=== PATIENT | male | born 1935 | race Two or more races ===

== ENCOUNTER 2017-03-20 13:53 | Inpatient (IN) | payer MEDICARE, MEDICAID ==
[2017-03-20 19:09] VITALS: BP 153/74
[2017-03-20] MEDS ORDERED: Pneumococcal Vaccine 0.5 mL Vial IM ONE (20:01)
[2017-03-20 20:36] LABS: % BASOPHILS 0.5 % (0.0-2.0); % LYMPHOCYTES 21.9 % (20.0-50.0); % NEUTROPHILS 63.6 % (40.0-80.0); HEMOGLOBIN 10.5 gm/dL (12-16); MEAN CELL VOLUME 95.7 fl (80-99); MEAN CORPUSCULAR HEMOGLOBIN 32.3 pg (27.0-31.0); MEAN CORPUSCULAR HGB CONC 33.8 pg (28.0-36.0); MEAN PLATELET VOLUME 6.3 fl; NEUTROPHILE ABSOLUTE 5.5 Th/cmm (1.8-8.0); PLATELET COUNT 241 Th/cmm (150-400); RED BLOOD COUNT 3.24 Mil/cmm (3.80-5.80); RED CELL DISTRIBUTION WIDTH 16.7 % (11.5-20.0); WHITE BLOOD COUNT 8.6 Th/cmm (4.8-10.8)
[2017-03-20] MEDS ORDERED: Diatrizoate Meglumine/Diatri 30 mL Sol ONE (21:28)
[2017-03-20 21:30] LABS: INR 1.06 (0.5-1.4)
[2017-03-20] MEDS: D5-0.45NS 1,000 ML IV SCH (23:30)
[2017-03-21 06:04] LABS: INR 1.05 (0.5-1.4); PROTHROMBIN TIME (TEST) 10.9 SECONDS (9.5-11.5)
[2017-03-21 06:12] LABS: ALKALINE PHOSPHATASE 83 U/L (34-104); ANION GAP 9.2 (7.0-16.0); BILIRUBIN,TOTAL 0.6 mg/dL (0.3-1.0); BUN - UREA NITROGEN 42 mg/dL (7-25); BUN/CREATININE RATIO 16.2; CALCIUM SERUM 9.4 mg/dL (8.6-10.3); CARBON DIOXIDE 26.4 mEq/L (21.0-31.0); CHLORIDE 93 mEq/L (98-107); CREATININE - SERUM 2.6 mg/dL (0.7-1.3); GLUCOSE 163 mg/dL (70-105); POTASSIUM SERUM 3.6 mEq/L (3.5-5.1); SGOT 18 U/L (13-39); SGPT/ALT 8 U/L (7-52); SODIUM SERUM 125 mEq/L (136-145)
[2017-03-21] MEDS ORDERED: Meperidine 25 mg/mL 1mL Syr IVP PRN (07:32)
[2017-03-21] MEDS ORDERED: Lactated Ringer 1,000 ML IV SCH (07:45)
--- NOTE | 2017-03-21 07:47 | Diagnostic Imaging Report ---
Exam: Portable chest x-ray one view HISTORY: Preop. Findings: Portable examination of the chest at 2134 hours reviewed. No prior studies available comparison. Bony thorax remarkable for degenerative changes. Mediastinal structures midline the heart is not enlarged. Multiple metallic sutures are noted status post transsternal thoracotomy. Right subclavian catheter terminates in superior vena cava. There is evidence for mild congestion. The costophrenic angles are clear. No acute pulmonic infiltrates appreciated. IMPRESSION: 1. No evidence for active pulmonic infiltrates 2. Mild congestion.
[2017-03-21] MEDS ORDERED: Meperidine 25 mg/mL 1mL Syr ONE (09:40)
[2017-03-21] MEDS ORDERED: Sodium Chloride 0.9% IRR 1,000 ML IV ONE (10:00)
[2017-03-21] MEDS ORDERED: Sodium Chloride 0.9% 1,000 ML IV ONE (10:00)
[2017-03-21] MEDS: D5-0.45NS 1,000 ML IV SCH (10:17)
--- NOTE | 2017-03-21 10:23 | Operative Report ---
DATE OF SURGERY: 03/21/2017 PREOPERATIVE DIAGNOSES: 1. Gangrene, left foot. 2. Gangrene, right great toe. 3. Diabetes mellitus. 4. Peripheral vascular disease, post angioplasty. POSTOPERATIVE DIAGNOSES: 1. Gangrene, left foot. 2. Gangrene, right great toe. 3. Diabetes mellitus. 4. Peripheral vascular disease, post angioplasty. OPERATION DONE: 1. Left below-knee amputation. 2. Amputation of the right big toe at the MP joint. SURGEON: Rhona Sanchez M.D. GUEST SERVICE TEAM LEADER: Dr. Dahl. ANESTHESIA: Spinal. ANESTHESIOLOGIST: Bird David M.D. ESTIMATED BLOOD LOSS: 20 mL. DESCRIPTION OF PROCEDURE: The patient was given spinal anesthesia. Both lower extremities were prepped with Betadine and draped in appropriate manner. An incision was made on the anterior aspect of the left leg, approximately 8 inches below the knee. This incision was carried to the fascia to the muscles. The periosteum was stripped from the tibia and the tibia was transected 4 cm from the initial skin incision. The fibula was transected 1 cm above this. The vessels were identified and individually suture ligated with 2-0 silk. The posterior muscle layers transected sharply with a knife. Following satisfactory control of bleeding, irrigation was carried out. The anterior aspect of the tibia was transected ____ smooth surface to the amputation stump. The incision was closed with interrupted sutures of #1 Vicryl for the fascia and the skin was closed with mark. Compression dressing was placed over this. Right big toe was disarticulated at the MP joint. The incision was closed with interrupted sutures of 3-0 Vicryl for the fascia and the skin was closed with mark. Dressing was placed over this. The patient will be sent to the telemetry for monitoring. JOB# [id number]
--- NOTE | 2017-03-21 10:57 | History & Physical ---
ADMIT DATE: 03/21/2017 ADMITTING DIAGNOSES: Bilateral lower extremity PAD with multiple necrotic left sided toes and right big toe necrosis. HISTORY OF PRESENT ILLNESS: The patient is an 82-year-old gentleman with medical history significant for PAD, CAD, essential hypertension, elevated uric acid, insulin-dependent diabetes for many years, acid reflux disease, hypothyroidism and hyperlipidemia, who underwent a left fem-pop bypass a few months ago, but unfortunately did not improve his symptoms (necrosis/claudication). Since then, his symptoms have gotten worse, and now has also developed worsening left big toe and heel necrosis as well as right big toe necrosis. The patient has also received multiple weeks of IV antibiotics via PICC line with no major improvement. He has been admitted for elective amputation (left AKA and right big toe amputation). PAST MEDICAL HISTORY: As noted above. Diabetes with vascular complications and diabetes with neurological complications. History of chronic renal insufficiency. PAST SURGICAL HISTORY: Include a fem-pop bypass and CABG many years ago, history of PEG placement. FAMILY HISTORY: Likely noncontributory. SOCIAL HISTORY: Currently, no tobacco, ETOH, or illicit drug usage. He lives at home with family. HOME MEDICATIONS: Allopurinol 100 b.i.d., aspirin 81 every day, bisacodyl 5 mg at bedtime p.r.n. for constipation, [id number] mg q. 8 hours p.r.n., famotidine 20 mg every day, Micheline-John 1 tab every day, insulin 70/30, 30 units Monday, Monday and Monday and 40 units as scheduled, levothyroxine 200 mcg every day, ranitidine 150 mg daily, simvastatin 40 at bedtime, Bactrim b.i.d. He has also had been previously on long-term IV antibiotics. REVIEW OF SYSTEMS: GENERAL: Denies any fever, chills, generalized weakness or tiredness. CARDIAC: No chest pain or palpitations. PULMONARY: No cough or sputum production. GASTROINTESTINAL: No bowel habit changes. No diarrhea reported. No nausea or vomiting. GENITOURINARY: No bladder habit changes. NEUROLOGICAL: Bilateral lower extremity numbness, which has been ongoing for months. LOWER EXT: LEFT-extensive dry necrosis in 1st, 3-5th toes. Left heel necrosis. RIGHT-right big toe dry necrosis. No pedeal pulses noted. PHYSICAL EXAMINATION: VITAL SIGNS: Temperature 98.6, has been afebrile, pulse 90-95, blood pressure 131/48, respirations 17-19, satting 98% on room air. GENERAL: A well nourished, well developed not in acute distress. HEAD AND NECK: Normocephalic and atraumatic. Pupils are reactive to light. CARDIAC: Regular rate and rhythm without any murmurs. LUNGS: Clear to auscultation, decreased at the bases. ABDOMEN: Soft, supple, nontender, nondistended. Normoactive bowel sounds. EXTREMITIES: LOWER EXT: LEFT-extensive dry necrosis in 1st, 3-5th toes. Left heel necrosis. RIGHT-right big toe dry necrosis. No pedeal pulses noted. NEUROLOGIC: Grossly intact though full exam could not be done. Cranial nerves 2-12 grossly within normal limits. LABORATORY DATA: Admission labs, white count 8.6, H and H 04/25, and platelet count of 241. INR is 1.06. Sodium 125, potassium 3.6, chloride 93, CO2 26, BUN 42, creatinine 2.6. Glucose 163, A1c 6.8, albumin 3.4, total bilirubin 0.6, AST 18, ALT 8, alk phos 83. DIAGNOSTICS: CXR-there is no evidence for acute pulmonary infiltrates. There is mild congestion. Previous duplex arterial ultrasounds and angiograms are consistent with severe PAD on both lower extremities. ASSESSMENT: 1. Severe peripheral arterial disease, bilateral lower extremities, left worse than right. 2. Multiple left sided dry gangrenous toes/heel necrosis. 3. Right big toe dry gangrene 4. Diabetes with vascular complications. 5. Diabetes with neurological complications/neuropathy. 6. History of insulin-dependent diabetes. 7. History of hypothyroidism. 8. History of hyperlipidemia. 9. History of coronary artery disease. 10. Hyponatremia. 11. Chronic renal insufficiency. 12. Chronic anemia, likely secondary to chronic disease. 13. History of PEG placement. PLAN: The patient has been admitted to the medical/surgical floor for further management and care. The patient has been placed on IV fluids, pain management, empiric IV antibiotics and will undergo a left-sided AKA and right toe amputation. He has already been seen by Vascular Surgery, Dr. Sanchez, and I will also ask for a Cardiology and nephrology eval given the complexity of his case. Daily labs and blood cultures will be monitored. Regular medications including insulin will be resumed after the patient is able to tolerate them. [facility]# [id number] MTDD
[2017-03-21] MEDS ORDERED: Diatrizoate Meglumine/Diatri 30 mL Sol PO ONE (11:04)
--- NOTE | 2017-03-21 12:19 | Diagnostic Imaging Report ---
Upper GI with Gastrografin HISTORY: G-tube confirmation COMPARISON: None FINDINGS: Human Resource Manager view demonstrates evidence of prior median sternotomy. Percutaneous gastric feeding tube is noted. Bowel gas pattern is nonspecific. The second image demonstrates contrast opacification of the distal stomach and small bowel loops. IMPRESSION: Intraluminal confirmation of patient's percutaneous gastric feeding tube.
[2017-03-21] MEDS ORDERED: Morphine Sulfate 2 mg/mL 1mL Syr IVP PRN (13:17)
[2017-03-21] MEDS: HYDROmorphone 1 mg/mL 1mL Syr IVP PRN ×3 (15:06→20:08)
--- NOTE | 2017-03-22 01:30 | Consultation ---
DATE OF CONSULTATION: 03/21/2017 PATIENT OF: Dr. Garland. HISTORY AND PHYSICAL: This 82-year-old male patient who recently had femoral popliteal bypass. The patient continued to deteriorate with peripheral vascular disease resulting in gangrene of the left foot and right great toe. At this time, the patient was admitted. The patient has left BKA and amputation of the right great toe. Cardiac consult is requested in view of angina with coronary artery bypass. PAST MEDICAL HISTORY: Hypertension, stable angina, coronary artery bypass, iron deficiency anemia, diabetes mellitus type 2, insulin dependent diabetes mellitus, diabetic CKD stage 3, diabetic peripheral vascular disease, diabetic peripheral neuropathy, hyperlipidemia, gout, GERD, hypothyroid, dysphagia with PEG placement, protein-calorie malnutrition. FAMILY HISTORY: Unremarkable. SOCIAL HISTORY: No history of smoking or alcohol abuse. ALLERGIES: None. PHYSICAL EXAMINATION: VITAL SIGNS: Blood pressure 150/80, pulse 70, respirations 20. HEAD: Normocephalic. No lumps or bumps. EYES: Pupils equal, reactive to light. Fundi show AV nicking, sclerae white, conjunctivae pink. NECK: Carotid 2+. Normal upstroke. JVD flat. Thyroid not palpable. Lymph nodes not palpable. CHEST: Shows increased AP diameter. No kyphosis, scoliosis. LUNGS: Bilateral bronchovesicular breath sounds. HEART: PMI fifth intercostal space with lateral to midclavicular line. S1, S2. No S3, S4, soft systolic murmur. ABDOMEN: Soft. Liver, spleen not palpable. The patient has a PEG in place. NEUROLOGIC: The patient has peripheral neuropathy. EXTREMITIES: Peripheral pulses difficult to palpate. The patient has gangrene of the left foot with left BKA and gangrene of the right great toe with amputation of the great toe. CLINICAL IMPRESSION: Stable angina, coronary artery bypass, hypertension, iron deficiency anemia, diabetes mellitus type 2, insulin dependent diabetes mellitus, diabetic chronic kidney disease stage 3, diabetic peripheral vascular disease with left BKA, right great toe amputation, diabetic peripheral neuropathy, hyperlipidemia, gout, hyperuricemia, gastroesophageal reflux disease, hypothyroid, dysphagia with PEG placement, protein-calorie malnutrition. PLAN: The patient to continue present care. Monitor the patient for any arrhythmias, as well as treatment of angina, hypertension, and monitor closely for diabetic CKD stage 3. JOB# [id number]
[2017-03-22] MEDS: HYDROmorphone 1 mg/mL 1mL Syr IVP PRN ×5 (02:44→20:52)
[2017-03-22] MEDS: D5-0.45NS 1,000 ML IV SCH (05:03)
[2017-03-22 05:38] LABS: % BASOPHILS 0.2 % (0.0-2.0); % EOSINOPHILS 1.8 % (0.0-5.0); % LYMPHOCYTES 14.7 % (20.0-50.0); % NEUTROPHILS 72.3 % (40.0-80.0); HEMATOCRIT 29.5 % (41.0-60); HEMOGLOBIN 10.2 gm/dL (12-16); MEAN CELL VOLUME 94.5 fl (80-99); MEAN CORPUSCULAR HEMOGLOBIN 32.8 pg (27.0-31.0); MEAN CORPUSCULAR HGB CONC 34.7 pg (28.0-36.0); MEAN PLATELET VOLUME 6.8 fl; NEUTROPHILE ABSOLUTE 7.3 Th/cmm (1.8-8.0); PLATELET COUNT 249 Th/cmm (150-400); RED BLOOD COUNT 3.12 Mil/cmm (3.80-5.80); RED CELL DISTRIBUTION WIDTH 16.7 % (11.5-20.0); WHITE BLOOD COUNT 10.1 Th/cmm (4.8-10.8)
[2017-03-22 06:05] LABS: ANION GAP 12.2 (7.0-16.0); BUN - UREA NITROGEN 52 mg/dL (7-25); BUN/CREATININE RATIO 14.9; CALCIUM SERUM 9.3 mg/dL (8.6-10.3); CARBON DIOXIDE 22.9 mEq/L (21.0-31.0); CHLORIDE 97 mEq/L (98-107); CREATININE - SERUM 3.5 mg/dL (0.7-1.3); GLUCOSE 242 mg/dL (70-105); MAGNESIUM 2.1 mg/dL (1.9-2.7); PHOSPHOROUS 3.6 mg/dL (2.5-5.0); POTASSIUM SERUM 4.1 mEq/L (3.5-5.1); SODIUM SERUM 128 mEq/L (136-145)
[2017-03-22] MEDS ORDERED: Sodium Chloride 0.9% 1,000 ML IV SCH ×2 (09:45→15:32)
[2017-03-22] MEDS ORDERED: Probiotic Screen MC PRN (15:52)
--- NOTE | 2017-03-22 16:29 | General Progress Note ---
Subjective - Review of Systems Service Date: 03/22/17 Events since last encounter: labs ok dressings dry Objective - Results Result Diagrams: 03/22/17 05:10 03/22/17 05:10 Recent Labs: Laboratory Last Values WBC 10.1 Th/cmm (4.8-10.8) 03/22/17 05:10 RBC 3.12 Mil/cmm (3.80-5.80) L 03/22/17 05:10 Hgb 10.2 gm/dL (12-16) L 03/22/17 05:10 Hct 29.5 % (41.0-60) L 03/22/17 05:10 MCV 94.5 fl (80-99) 03/22/17 05:10 MCH 32.8 pg (27.0-31.0) H 03/22/17 05:10 MCHC Differential 34.7 pg (28.0-36.0) 03/22/17 05:10 RDW 16.7 % (11.5-20.0) 03/22/17 05:10 Plt Count 249 Th/cmm (150-400) 03/22/17 05:10 MPV 6.8 fl 03/22/17 05:10 Neutrophils % 72.3 % (40.0-80.0) 03/22/17 05:10 Lymphocytes % 14.7 % (20.0-50.0) L 03/22/17 05:10 Monocytes % 11.0 % (2.0-10.0) H 03/22/17 05:10 Eosinophils % 1.8 % (0.0-5.0) 03/22/17 05:10 Basophils % 0.2 % (0.0-2.0) 03/22/17 05:10 ESR 96 mm/hr (0-20) H 03/22/17 05:10 PT 10.9 SECONDS (9.5-11.5) 03/21/17 05:05 INR 1.05 (0.5-1.4) 03/21/17 05:05 PTT (Actin FS) 44.6 SECONDS (26.0-38.0) H 03/21/17 05:05 Sodium 128 mEq/L (136-145) L 03/22/17 05:10 Potassium 4.1 mEq/L (3.5-5.1) 03/22/17 05:10 Chloride 97 mEq/L (98-107) L 03/22/17 05:10 Carbon Dioxide 22.9 mEq/L (21.0-31.0) 03/22/17 05:10 Anion Gap 12.2 (7.0-16.0) 03/22/17 05:10 BUN 52 mg/dL (7-25) H 03/22/17 05:10 Creatinine 3.5 mg/dL (0.7-1.3) H 03/22/17 05:10 Est GFR ( Amer) TNP 03/22/17 05:10 Est GFR (Non-Af Amer) TN 03/22/17 05:10 BUN/Creatinine Ratio 14.9 03/22/17 05:10 Glucose 242 mg/dL (70-105) H 03/22/17 05:10 POC Glucose 147 MG/DL (70 - 105) H 03/21/17 07:31 Hemoglobin A1c % 6.8 % (4.0-6.0) H 03/20/17 20:28 Calcium 9.3 mg/dL (8.6-10.3) 03/22/17 05:10 Phosphorus 3.6 mg/dL (2.5-5.0) 03/22/17 05:10 Magnesium 2.1 mg/dL (1.9-2.7) 03/22/17 05:10 Total Bilirubin 0.6 mg/dL (0.3-1.0) 03/21/17 05:05 AST 18 U/L (13-39) 03/21/17 05:05 ALT 8 U/L (7-52) 03/21/17 05:05 Alkaline Phosphatase 83 U/L (34-104) 03/21/17 05:05 C-Reactive Protein 8.7 mg/dL (0.0-0.9) H 03/22/17 05:10 Total Protein 6.8 gm/dL (6.0-8.3) 03/21/17 05:05 Albumin 3.4 gm/dL (4.2-5.5) L 03/21/17 05:05 Globulin 3.4 gm/dL 03/21/17 05:05 Albumin/Globulin Ratio 1.0 (1.0-1.8) 03/21/17 05:05 Random Vancomycin 13.2 ug/mL (5.0-40.0) 03/22/17 05:10 Blood Type A POSITIVE 03/20/17 20:28 Antibody Screen NEGATIVE 03/20/17 20:28 - Physical Exam Vitals and I&O: Vital Signs Temp 98.8 F 03/22/17 15:59 Pulse 105 03/22/17 15:59 Resp 18 03/22/17 15:59 BP 133/83 03/22/17 15:59 Pulse Ox 98 03/22/17 15:59 Intake & Output 03/21/17 03/22/17 03/22/17 18:59 06:59 18:59 Intake Total 344.284 0746 50 Balance 593.306 5720 50 Intake: Intake, IV Amount 755.265 4072 50 D5-0.45NS 1,000 ml @ 80 763.267 8592 mls/hr IV .[id number] [facility] Rx #:[id number] Piperacillin Sodium/ 100 50 50 Tazobact 2.25 gm In Sodium Chloride 0.9% 50 ml @ 100 mls/hr IV Q8HR [facility] Rx#:[id number] Active Medications: Current Medications Hydralazine HCl (Apresoline 20 Mg/Ml) 10 mg IV Q4H PRN PRN Reason: SBP>160 Stop: 05/21/17 09:37 Hydromorphone HCl (Dilaudid) 1 mg IVP Q3HR PRN PRN Reason: Pain (Severe) Stop: 05/20/17 14:55 Last Admin: 03/22/17 13:02 Dose: 1 mg Piperacillin Sod/Tazobactam (Sod 2.25 gm/ Sodium Chloride) 50 mls @ 100 mls/hr IV Q8HR [facility] Stop: 05/20/17 09:29 Last Infusion: 03/22/17 13:49 Dose: Infused Sodium Chloride (Nacl 0.9%) 1,000 mls @ 40 mls/hr IV .Q24H [facility] Stop: 05/21/17 09:44 Lactobacillus Rhamnosus (Culturelle) 1 each PO DAILY SUSAN Stop: 05/22/17 08:59 Miscellaneous (Vancomycin Iv Per Pharmacy) 1 ea DAILY SUSAN Stop: 05/21/17 08:59 Miscellaneous (Probiotic Screen) 1 ea PRN PRN PRN Reason: PROTOCOL Stop: 05/21/17 15:51 Ondansetron HCl (Zofran) 4 mg IV UD PRN PRN Reason: Nausea / Vomiting Stop: 05/20/17 07:31 - Procedures Procedures: Procedures Procedure Code Date AMPUTATION OF LOWER LEG 37434 03/20/17 AMPUTATION OF TOE 09065 03/20/17 CATARAC PHACOEMULS/ASPIR 13.41 02/11/10 CATARACT SURG W/IOL 1 STAGE 73735 02/11/10 DETACHMENT AT LEFT LOWER LEG, HIGH, OPEN APPROACH [id number] 03/20/17 DETACHMENT AT RIGHT 1ST TOE, COMPLETE, OPEN APPROACH [id number] 03/20/17 INSERT LENS AT CATAR EXT 13.71 02/11/10 Nutritional Asmnt/Malnutr-PDOC - Dietary Evaluation Malnutrition Findings (Please click <Entered> for more info): Nutritional Asmnt/Malnutrition Start: 03/21/17 17: 21 Text: Status: Complete Freq: Document 03/21/17 17:21 GSUN (Rec: 03/21/17 17:36 GSUN [email or web address]-FN) Nutritional Asmnt/Malnutrition Patient General Information Nutritional Screening Consult Diagnosis Severe PAD Pertinent Medical Hx/Surgical Hx HTN, elevated uric acid, insulin dependent DM, acid reflux disease, hypothyroidism , hyperlipidemia, fem-pop bypass, chronic renal insufficiency Subjective Information [address] consult for BG 187. Per RN notes, pt brought in from dialysis. 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 Spoke with RN JOSE Jon stated pt with g-tube present, however there is a cut and needing replacement, GI MD aware, NPO until replacement. Current Diet Order/ Nutrition Support NPO/no diet order Pertinent Medications D5-0.45ns, Dilaudid, Vancomycin, Zofran Pertinent Labs 03/20: A1c 6.8H 03/21: BUN 42H, creaitnine 2.6H , glucose 163H Nutritional Hx/Data Height 1.63 m Height (Calculated Centimeters) 162.6 Current Weight (lbs) 67.54 kg Weight (Calculated Kilograms) 67.5 Weight (Calculated Grams) 63255.9 [place] Body Weight 130 Weight Status Approriate GI Symptoms Skin Integrity/Comment: William 14. Sacral pressure area. 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 Problem Problem Indequate intake from enteral nutrition related to Etiology malfunctioning gtube aeb Signs/Symptoms: currently NPO, awaiting replacement Intervention/Recommendation Comments 1. When g-tube replaced and appropriate to resume feeding, recommend Novasource Renal at 40ml/hr x 24hrs, providing 960ml total volume, 1920kcal, 87g protein. Initiate at 20ml/ hr x 24hrs, monitor tolerance, increase 10ml/hr until goal 40ml/hr. Expected Outcomes/Goals Expected Outcomes/Goals 1. Pt to resume tube feeding and meet at least 100% of estimated nutritinoal needs with tolerance.
--- NOTE | 2017-03-22 17:00 | Operative Report ---
DATE OF SURGERY: 03/22/2017 INPATIENT GASTROINTESTINAL PROCEDURE NAME OF PROCEDURE: G-tube change. REFERRING PHYSICIAN: Dr. Garland. REASON FOR PROCEDURE: Malfunctioning G-tube, dysphagia. PREOPERATIVE DIAGNOSES: Malfunctioning G-tube, dysphagia. POSTOPERATIVE DIAGNOSIS: New 20-[place] gastrostomy tube placed. DESCRIPTION OF PROCEDURE: The patient was placed on his back. The old G-tube was identified. It was pulled out using traction method. A new G-tube was lubricated at the tip and inserted through the gastrocutaneous fistula. Internal balloon was inflated with 15 mL of sterile saline. The outer flange was secured in position. Procedure was then completed. COMPLICATIONS: None. FINDINGS: New 20-[place] gastrostomy tube placed. RECOMMENDATIONS: 1. KUB with Gastrografin confirmed placement. 2. If it is in stomach, may begin using it. Thank you for allowing me to participate. Please call me if any questions. JOB# [id number]
--- NOTE | 2017-03-22 19:41 | Consultation ---
DATE OF CONSULTATION: 03/22/2017 INPATIENT GASTROINTESTINAL CONSULTATION: REFERRING PHYSICIAN: Dr. Garland. REASON FOR CONSULTATION: Malfunctioning G-tube. HISTORY OF PRESENT ILLNESS: An 82-year-old male, who has multiple medical problems, is admitted to the hospital with peripheral arterial disease. The patient was noted to have a malfunctioning G-tube and therefore we are asked to see the patient to consider the replacement of the feeding tube. The patient otherwise denies having any abdominal pain, nausea, vomiting or GI bleeding. PAST MEDICAL HISTORY: Include peripheral arterial disease, coronary artery disease, hypertension, diabetes, GERD, hypothyroidism, hyperlipidemia, diabetes, and chronic kidney disease. PAST SURGICAL HISTORY: PEG tube placed at the abdomen. FAMILY HISTORY: Noncontributory. SOCIAL HISTORY: Denies tobacco, alcohol or IV drug usage. ALLERGIES: None. CURRENT MEDICATIONS: Dilaudid, vancomycin, Zofran, Zosyn. REVIEW OF SYSTEMS: Unobtainable. PHYSICAL EXAMINATION: VITAL SIGNS: Temperature 99.7, breathing 20, pulse of 104, blood pressure 173/89, satting 95%. GENERAL: In no apparent distress. EYES: Anicteric, normal conjunctivae. HEENT: Normocephalic, atraumatic. Moist mucous membranes. NECK: Soft, supple. CHEST: Clear. No effort. CARDIOVASCULAR: Regular rate and rhythm. ABDOMEN: Soft, nontender, nondistended with a G-tube. SKIN: Warm, dry. EXTREMITIES: Reveal no cyanosis. LABORATORY DATA: Show a white count , hemoglobin 10.2, platelets of 249. INR 1.05. LFTs within normal limits. IMPRESSION: An 82-year-old male with malfunctioning G-tube. We are asked to see the patient to replace it. The patient also has other medical problems which I will defer to primary team. PLAN: G-tube to be changed at bedside. Thank you for allowing me to participate. Please call me if you have any questions. JOB# [id number]
[2017-03-23] MEDS: HYDROmorphone 1 mg/mL 1mL Syr IVP PRN ×2 (02:34→08:47)
[2017-03-23 07:12] LABS: % BASOPHILS 1.1 % (0.0-2.0); % EOSINOPHILS 3.6 % (0.0-5.0); % LYMPHOCYTES 15.4 % (20.0-50.0); % MONOCYTES 10.1 % (2.0-10.0); % NEUTROPHILS 69.8 % (40.0-80.0); HEMATOCRIT 30.3 % (41.0-60); HEMOGLOBIN 10.4 gm/dL (12-16); MEAN CELL VOLUME 95.1 fl (80-99); MEAN CORPUSCULAR HEMOGLOBIN 32.8 pg (27.0-31.0); MEAN CORPUSCULAR HGB CONC 34.5 pg (28.0-36.0); MEAN PLATELET VOLUME 5.7 fl; NEUTROPHILE ABSOLUTE 6.1 Th/cmm (1.8-8.0); PLATELET COUNT 278 Th/cmm (150-400); RED BLOOD COUNT 3.19 Mil/cmm (3.80-5.80); RED CELL DISTRIBUTION WIDTH 16.8 % (11.5-20.0); WHITE BLOOD COUNT 8.7 Th/cmm (4.8-10.8)
[2017-03-23 07:36] LABS: ANION GAP 10.2 (7.0-16.0); BUN - UREA NITROGEN 31 mg/dL (7-25); BUN/CREATININE RATIO 10.7; CALCIUM SERUM 9.2 mg/dL (8.6-10.3); CARBON DIOXIDE 28.1 mEq/L (21.0-31.0); CHLORIDE 101 mEq/L (98-107); CREATININE - SERUM 2.9 mg/dL (0.7-1.3); GLUCOSE 200 mg/dL (70-105); MAGNESIUM 1.9 mg/dL (1.9-2.7); POTASSIUM SERUM 3.3 mEq/L (3.5-5.1); SODIUM SERUM 136 mEq/L (136-145)
--- NOTE | 2017-03-23 08:14 | Diagnostic Imaging Report ---
Exam: G-tube placement. HISTORY NG tube placement Findings Upon injection of contrast material into gastrostomy tube there is normal opacification of the stomach. IMPRESSION: Gastrostomy tube in the stomach area
--- NOTE | 2017-03-23 08:49 | General Progress Note ---
Subjective - Review of Systems Service Date: 03/23/17 Events since last encounter: redressed, incisions clean Objective - Results Result Diagrams: 03/23/17 07:00 03/23/17 07:00 Recent Labs: Laboratory Last Values WBC 8.7 Th/cmm (4.8-10.8) 03/23/17 07:00 RBC 3.19 Mil/cmm (3.80-5.80) L 03/23/17 07:00 Hgb 10.4 gm/dL (12-16) L 03/23/17 07:00 Hct 30.3 % (41.0-60) L 03/23/17 07:00 MCV 95.1 fl (80-99) 03/23/17 07:00 MCH 32.8 pg (27.0-31.0) H 03/23/17 07:00 MCHC Differential 34.5 pg (28.0-36.0) 03/23/17 07:00 RDW 16.8 % (11.5-20.0) 03/23/17 07:00 Plt Count 278 Th/cmm (150-400) 03/23/17 07:00 MPV 5.7 fl 03/23/17 07:00 Neutrophils % 69.8 % (40.0-80.0) 03/23/17 07:00 Lymphocytes % 15.4 % (20.0-50.0) L 03/23/17 07:00 Monocytes % 10.1 % (2.0-10.0) H 03/23/17 07:00 Eosinophils % 3.6 % (0.0-5.0) 03/23/17 07:00 Basophils % 1.1 % (0.0-2.0) 03/23/17 07:00 ESR 96 mm/hr (0-20) H 03/22/17 05:10 PT 10.9 SECONDS (9.5-11.5) 03/21/17 05:05 INR 1.05 (0.5-1.4) 03/21/17 05:05 PTT (Actin FS) 44.6 SECONDS (26.0-38.0) H 03/21/17 05:05 Sodium 136 mEq/L (136-145) 03/23/17 07:00 Potassium 3.3 mEq/L (3.5-5.1) L 03/23/17 07:00 Chloride 101 mEq/L (98-107) 03/23/17 07:00 Carbon Dioxide 28.1 mEq/L (21.0-31.0) 03/23/17 07:00 Anion Gap 10.2 (7.0-16.0) 03/23/17 07:00 BUN 31 mg/dL (7-25) H 03/23/17 07:00 Creatinine 2.9 mg/dL (0.7-1.3) H 03/23/17 07:00 Est GFR ( Amer) TNP 03/23/17 07:00 Est GFR (Non-Af Amer) TNP 03/23/17 07:00 BUN/Creatinine Ratio 10.7 03/23/17 07:00 Glucose 200 mg/dL (70-105) H 03/23/17 07:00 POC Glucose 147 MG/DL (70 - 105) H 03/21/17 07:31 Hemoglobin A1c % 6.8 % (4.0-6.0) H 03/20/17 20:28 Calcium 9.2 mg/dL (8.6-10.3) 03/23/17 07:00 Phosphorus 3.6 mg/dL (2.5-5.0) 03/22/17 05:10 Magnesium 1.9 mg/dL (1.9-2.7) 03/23/17 07:00 Total Bilirubin 0.6 mg/dL (0.3-1.0) 03/21/17 05:05 AST 18 U/L (13-39) 03/21/17 05:05 ALT 8 U/L (7-52) 03/21/17 05:05 Alkaline Phosphatase 83 U/L (34-104) 03/21/17 05:05 C-Reactive Protein 8.7 mg/dL (0.0-0.9) H 03/22/17 05:10 Total Protein 6.8 gm/dL (6.0-8.3) 03/21/17 05:05 Albumin 3.4 gm/dL (4.2-5.5) L 03/21/17 05:05 Globulin 3.4 gm/dL 03/21/17 05:05 Albumin/Globulin Ratio 1.0 (1.0-1.8) 03/21/17 05:05 Random Vancomycin 13.2 ug/mL (5.0-40.0) 03/22/17 05:10 Blood Type A POSITIVE 03/20/17 20:28 Antibody Screen NEGATIVE 03/20/17 20:28 - Physical Exam Vitals and I&O: Vital Signs Temp 98.4 F 03/23/17 08:00 Pulse 111 03/23/17 08:00 Resp 19 03/23/17 08:00 BP 168/76 03/23/17 08:00 Pulse Ox 100 03/23/17 08:00 Intake & Output 03/22/17 03/23/17 03/23/17 18:59 06:59 18:59 Intake Total 50 Balance 50 Weight (lbs) 67.132 kg Intake: Intake, IV Amount 50 Piperacillin Sodium/ 50 Tazobact 2.25 gm In Sodium Chloride 0.9% 50 ml @ 100 mls/hr IV Q8HR [facility] Rx#:[id number] Active Medications: Current Medications Hydralazine HCl (Apresoline 20 Mg/Ml) 10 mg IV Q4H PRN PRN Reason: SBP>160 Stop: 05/21/17 09:37 Last Admin: 03/23/17 00:22 Dose: 10 mg Hydromorphone HCl (Dilaudid) 1 mg IVP Q3HR PRN PRN Reason: Pain (Severe) Stop: 05/20/17 14:55 Last Admin: 03/23/17 02:34 Dose: 1 mg Piperacillin Sod/Tazobactam (Sod 2.25 gm/ Sodium Chloride) 50 mls @ 100 mls/hr IV Q8HR [facility] Stop: 05/20/17 09:29 Last Admin: 03/23/17 04:39 Dose: 100 mls/hr Sodium Chloride (Nacl 0.9%) 1,000 mls @ 40 mls/hr IV .Q24H [facility] Stop: 05/21/17 09:44 Last Admin: 03/22/17 17:52 Dose: 40 mls/hr Lactobacillus Rhamnosus (Culturelle) 1 each PO DAILY [facility] Stop: 05/22/17 08:59 Miscellaneous (Vancomycin Iv Per Pharmacy) 1 ea MC DAILY [facility] Stop: 05/21/17 08:59 Miscellaneous (Probiotic Screen) 1 ea MC PRN PRN PRN Reason: PROTOCOL Stop: 05/21/17 15:51 Miscellaneous (Clinical Monitoring) 1 ea MC DAILY PRN PRN Reason: RENAL Stop: 05/22/17 08:25 Ondansetron HCl (Zofran) 4 mg IV UD PRN PRN Reason: Nausea / Vomiting Stop: 05/20/17 07:31 - Procedures Procedures: Procedures Procedure Code Date AMPUTATION OF LOWER LEG 41745 03/20/17 AMPUTATION OF TOE 42249 03/20/17 CATARAC PHACOEMULS/ASPIR 13.41 02/11/10 CATARACT SURG W/IOL 1 STAGE 80577 02/11/10 DETACHMENT AT LEFT LOWER LEG, HIGH, OPEN APPROACH [id number] 03/20/17 DETACHMENT AT RIGHT 1ST TOE, COMPLETE, OPEN APPROACH [id number] 03/20/17 INSERT LENS AT CATAR EXT 13.71 02/11/10 Nutritional Asmnt/Malnutr-PDOC - Dietary Evaluation Malnutrition Findings (Please click <Entered> for more info): Nutritional Asmnt/Malnutrition Start: 03/21/17 17: 21 Text: Status: Complete Freq: Document 03/21/17 17:21 GSUN (Rec: 03/21/17 17:36 GSUN [email or web address]) Nutritional Asmnt/Malnutrition Patient General Information Nutritional Screening Consult Diagnosis Severe PAD Pertinent Medical Hx/Surgical Hx HTN, elevated uric acid, insulin dependent DM, acid reflux disease, hypothyroidism , hyperlipidemia, fem-pop bypass, chronic renal insufficiency Subjective Information 82 [address] consult for BG 187. Per RN notes, pt brought in from dialysis. 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 Spoke with JOSE Jon RN stated pt with g-tube present, however there is a cut and needing replacement, GI MD aware, NPO until replacement. Current Diet Order/ Nutrition Support NPO/no diet order Pertinent Medications D5-0.45ns, Dilaudid, Vancomycin, Zofran Pertinent Labs 03/20: A1c 6.8H 03/21: BUN 42H, creaitnine 2.6H , glucose 163H Nutritional Hx/Data Height 1.63 m Height (Calculated Centimeters) 162.6 Current Weight (lbs) 67.54 kg Weight (Calculated Kilograms) 67.5 Weight (Calculated Grams) 70812.9 [place] Body Weight 130 Weight Status Approriate GI Symptoms Skin Integrity/Comment: William 14. Sacral pressure area. 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 Problem Problem Indequate intake from enteral nutrition related to Etiology malfunctioning gtube aeb Signs/Symptoms: currently NPO, awaiting replacement Intervention/Recommendation Comments 1. When g-tube replaced and appropriate to resume feeding, recommend Novasource Renal at 40ml/hr x 24hrs, providing 960ml total volume, 1920kcal, 87g protein. Initiate at 20ml/ hr x 24hrs, monitor tolerance, increase 10ml/hr until goal 40ml/hr. Expected Outcomes/Goals Expected Outcomes/Goals 1. Pt to resume tube feeding and meet at least 100% of estimated nutritinoal needs with tolerance.
[2017-03-23] MEDS ORDERED: Potassium Chloride Elixir 20 mEq /15 mL UDC GT ONE (09:40)
[2017-03-23] MEDS: Enoxaparin 30 mg/0.3 mL 0.3mL Syr SUBQ SCH ×2 (11:30→21:25)
[2017-03-23] MEDS: Lactobacillus Rhamnosus 10 Billion CFU Capsule PO SCH (11:36)
--- NOTE | 2017-03-23 15:42 | Pathology Report ---
[id number] Collection Date: 03/21/2017 Surgeon: Dr. Fidelina Sanchez Specimen Description: 1. Left leg fugss-xec-nzyf amputation 2. Right big toe amputation Gross Description: Part I: Received in the unfixed state is a left leg otlqc-xwi-fkdy amputation with the left foot measuring 26 cm from the left big toe to the left heel and 28 cm from the left heel to the surgical transection margin. There are multiple areas of dark brown/black discoloration and necrosis covering the first, second, fourth, and fifth toes. These areas of gangrenous ulceration extend into the deep subcutaneous soft tissues. The left heel also shows a large 6 cm area of ulceration and brownish-black discoloration. The more proximal soft tissues and bone are grossly intact and show no evidence for cutaneous ulceration or degenerative changes. Examination of the arterial vessels at the transection margin shows areas of calcification and narrowing. Plant Maintenance Manager sections are submitted in three cassettes labeled A1 to A3. Cassette A1 shows the gangrenous ulcers, cassette A2 shows the proximal skin and soft tissue, and cassette A3 shows the arterial vessels. Gross Description: Part II: Received in formalin is an amputation specimen of the right big toe measuring 6.5 cm in length x up to 3.8 cm in width. There is brownish-black ulceration and gangrenous changes seen covering the distal toe with degenerative changes also seen on the toenail. Sectioning shows these necrotic changes to extend into the subcutaneous and deep soft tissue. Plant Maintenance Manager sections are submitted in one cassette labeled B1. Microscopic Description: Part I: The histologic sections show areas of cutaneous ulceration and extensive necrosis with suppurative inflammation consisting of large collections of neutrophils within a very degenerated and necrotic background. Sections of the skin and muscle at the proximal area show intact soft tissue without gangrenous change. Sections of the arterial vessels show narrowing and calcification with areas of total occlusion also appreciated. Diagnosis: Part I: 1. Multiple gangrenous ulcers covering the left toes and left heel, left deoct-uau-vlkh amputation. 2. The arterial vessels show areas of occlusion and calcification, consistent with peripheral vascular disease. Microscopic Description: Part II: The histologic sections show cutaneous ulceration with extensive suppurative inflammation and necrosis, consisting of large collections of neutrophils within a very degenerated/necrotic background. Diagnosis: Part II: Ulcerated, necrotic skin consistent with gangrene (right big toe amputation). [facility]# [id number] MTDD
[2017-03-24] MEDS: HYDROmorphone 1 mg/mL 1mL Syr IVP PRN (01:44)
--- NOTE | 2017-03-24 05:27 | Consultation ---
DATE OF CONSULTATION: 03/21/2017 ATTENDING: Vanda Garland M.D. SALES STOCK ASSOCIATE: Aldo Grady M.D. REASON FOR CONSULT: Electrolyte imbalance and fluid management. HISTORY OF PRESENT ILLNESS: This is an 82-year-old male with past medical history of end-stage renal disease, on hemodialysis, who was brought in because of worsening necrosis of digits of both feet. A few months prior to admission, the patient had developed bilateral foot ulcers. He was diagnosed to have severe peripheral arterial disease. He underwent left fem-pop bypass to no avail. A few hours prior to admission, the patient could no longer tolerate his foot pain. He was then brought to the hospital for elective BKA, as well as sharp debridement of his ulcers. PAST MEDICAL HISTORY: 1. End-stage renal disease, on hemodialysis. 2. Severe peripheral arterial disease. 3. Type 2 diabetes mellitus. 4. Essential hypertension. 5. GERD. 6. Hypothyroidism. 7. Dyslipidemia. 8. Coronary artery disease. 9. Obesity. CURRENT MEDICATIONS: He is currently on acetaminophen, aspirin, clonidine, Lovenox, famotidine, hydralazine, levothyroxine, ondansetron, pantoprazole, simvastatin, tramadol, vancomycin, and Zosyn. ALLERGIES: No known drug allergies. SOCIAL AND FAMILY HISTORY: I was not able to obtain directly from the patient because he is sedated. REVIEW OF SYSTEMS: Again, I was not able to decipher directly from the patient because of current mental status. PHYSICAL EXAMINATION: GENERAL: The patient is sedated, not in any form of distress. VITAL SIGNS: Blood pressure is 131/48, pulse 90, temperature 98.6 degrees. SKIN: Good turgor, warm, no rash, no jaundice appreciated. HEENT: Head: Normocephalic, atraumatic. Eyes: Extraocular muscles intact. Pupils equal, round, reactive to light and accommodates. Anicteric sclerae. Pale conjunctivae. Nose: Midline nasal septum. Mouth: Dry mucosa with adequate dentition. NECK: Supple, no adenopathy, no thyromegaly, no bruits. Trachea palpated in the midline. CHEST AND CVS: S1, S2. No rub, murmur, no gallop appreciated. Point of maximal impulse fifth intercostal space left midclavicular line. No abdominal or femoral bruits appreciated. LUNGS: Equal expansion. No use of accessory muscles. No supraclavicular retractions, few rhonchi, but no rales, no wheezes appreciated. ABDOMEN: Obese, soft, positive for bowel sounds. No bruits either diastolic or systolic. RECTAL: Deferred. GENITOURINARY: Normal appearing male genitalia. MUSCULOSKELETAL: No effusions present in his joints, but unable to assess his range of motion. EXTREMITIES: He has adequate dressing on both left stump, as well as right foot, no drainage, no discharge. NEUROLOGIC: As mentioned, the patient is sedated, so I was not able to pursue further my neuro exam. LABORATORY DATA: Did reveal white count is 8.6, hemoglobin 10.5, hematocrit 31, platelets 241, polys 63.6%. Sodium 125, potassium 3.6, chloride 93, bicarb 26, BUN 42, creatinine 2.6, glucose 147. Hemoglobin A1c 6.8, calcium 9.4, albumin 3.4. IMPRESSION: 1. End-stage renal disease, on hemodialysis. 2. Severe peripheral arterial disease with necrotic right toes and left foot ulcers, status post left BKA status post sharp debridement with amputation of right first digit. 3. Hyponatremia secondary to kidney failure. 4. Type 2 diabetes mellitus with chronic kidney disease. 5. Essential hypertension with chronic kidney disease. 6. Gastroesophageal reflux disease. 7. Hypothyroidism. 8. Dyslipidemia. 9. Coronary artery disease. 10. Obesity. PLAN: 1. Hemodialysis as scheduled. 2. Monitor surgical wound. 3. Renal/diabetic diet. 4. Continue with Zosyn and vancomycin. JOB# [id number]
[2017-03-24] MEDS: Levothyroxine 0.1 Mg Tab GT SCH (06:39)
[2017-03-24 06:43] LABS: % BASOPHILS 0.6 % (0.0-2.0); % EOSINOPHILS 7.4 % (0.0-5.0); % LYMPHOCYTES 20.3 % (20.0-50.0); % NEUTROPHILS 62.7 % (40.0-80.0); HEMATOCRIT 28.5 % (41.0-60); HEMOGLOBIN 9.7 gm/dL (12-16); MEAN CELL VOLUME 96.4 fl (80-99); MEAN CORPUSCULAR HEMOGLOBIN 32.8 pg (27.0-31.0); MEAN CORPUSCULAR HGB CONC 34.1 pg (28.0-36.0); MEAN PLATELET VOLUME 6.5 fl; NEUTROPHILE ABSOLUTE 5.2 Th/cmm (1.8-8.0); PLATELET COUNT 260 Th/cmm (150-400); RED BLOOD COUNT 2.96 Mil/cmm (3.80-5.80); RED CELL DISTRIBUTION WIDTH 17.1 % (11.5-20.0); WHITE BLOOD COUNT 8.1 Th/cmm (4.8-10.8)
[2017-03-24 07:01] LABS: ANION GAP 10.5 (7.0-16.0); BUN - UREA NITROGEN 45 mg/dL (7-25); BUN/CREATININE RATIO 12.5; CALCIUM SERUM 8.9 mg/dL (8.6-10.3); CARBON DIOXIDE 26.1 mEq/L (21.0-31.0); CHLORIDE 101 mEq/L (98-107); CREATININE - SERUM 3.6 mg/dL (0.7-1.3); GLUCOSE 261 mg/dL (70-105); POTASSIUM SERUM 3.6 mEq/L (3.5-5.1); SODIUM SERUM 134 mEq/L (136-145)
[2017-03-24] MEDS: Enoxaparin 30 mg/0.3 mL 0.3mL Syr SUBQ SCH (09:46)
[2017-03-24] MEDS: Lactobacillus Rhamnosus 10 Billion CFU Capsule PO SCH (09:46)
--- NOTE | 2017-03-24 10:09 | GI Progress Note ---
Subjective - Review of Systems Subjective: NO EVENTS Objective - Results Result Diagrams: 03/24/17 06:00 03/24/17 06:00 Recent Labs: Laboratory Last Values WBC 8.1 Th/cmm (4.8-10.8) 03/24/17 06:00 RBC 2.96 Mil/cmm (3.80-5.80) L 03/24/17 06:00 Hgb 9.7 gm/dL (12-16) L 03/24/17 06:00 Hct 28.5 % (41.0-60) L 03/24/17 06:00 MCV 96.4 fl (80-99) 03/24/17 06:00 MCH 32.8 pg (27.0-31.0) H 03/24/17 06:00 MCHC Differential 34.1 pg (28.0-36.0) 03/24/17 06:00 RDW 17.1 % (11.5-20.0) 03/24/17 06:00 Plt Count 260 Th/cmm (150-400) 03/24/17 06:00 MPV 6.5 fl 03/24/17 06:00 Neutrophils % 62.7 % (40.0-80.0) 03/24/17 06:00 Lymphocytes % 20.3 % (20.0-50.0) 03/24/17 06:00 Monocytes % 9.0 % (2.0-10.0) 03/24/17 06:00 Eosinophils % 7.4 % (0.0-5.0) H 03/24/17 06:00 Basophils % 0.6 % (0.0-2.0) 03/24/17 06:00 ESR 96 mm/hr (0-20) H 03/22/17 05:10 PT 10.9 SECONDS (9.5-11.5) 03/21/17 05:05 INR 1.05 (0.5-1.4) 03/21/17 05:05 PTT (Actin FS) 44.6 SECONDS (26.0-38.0) H 03/21/17 05:05 Sodium 134 mEq/L (136-145) L 03/24/17 06:00 Potassium 3.6 mEq/L (3.5-5.1) 03/24/17 06:00 Chloride 101 mEq/L (98-107) 03/24/17 06:00 Carbon Dioxide 26.1 mEq/L (21.0-31.0) 03/24/17 06:00 Anion Gap 10.5 (7.0-16.0) 03/24/17 06:00 BUN 45 mg/dL (7-25) H 03/24/17 06:00 Creatinine 3.6 mg/dL (0.7-1.3) H 03/24/17 06:00 Est GFR ( Amer) TNP 03/24/17 06:00 Est GFR (Non-Af Amer) TNP 03/24/17 06:00 BUN/Creatinine Ratio 12.5 03/24/17 06:00 Glucose 261 mg/dL (70-105) H 03/24/17 06:00 POC Glucose 147 MG/DL (70 - 105) H 03/21/17 07:31 Hemoglobin A1c % 6.8 % (4.0-6.0) H 03/20/17 20:28 Calcium 8.9 mg/dL (8.6-10.3) 03/24/17 06:00 Phosphorus 3.6 mg/dL (2.5-5.0) 03/22/17 05:10 Magnesium 2.0 mg/dL (1.9-2.7) 03/24/17 06:00 Total Bilirubin 0.6 mg/dL (0.3-1.0) 03/21/17 05:05 AST 18 U/L (13-39) 03/21/17 05:05 ALT 8 U/L (7-52) 03/21/17 05:05 Alkaline Phosphatase 83 U/L (34-104) 03/21/17 05:05 C-Reactive Protein 8.7 mg/dL (0.0-0.9) H 03/22/17 05:10 Total Protein 6.8 gm/dL (6.0-8.3) 03/21/17 05:05 Albumin 3.4 gm/dL (4.2-5.5) L 03/21/17 05:05 Globulin 3.4 gm/dL 03/21/17 05:05 Albumin/Globulin Ratio 1.0 (1.0-1.8) 03/21/17 05:05 Random Vancomycin 23.3 ug/mL (5.0-40.0) 03/23/17 07:06 Blood Type A POSITIVE 03/20/17 20:28 Antibody Screen NEGATIVE 03/20/17 20:28 - Physical Exam Vitals and I&O: Vital Signs Temp 99.4 F 03/24/17 04:00 Pulse 111 03/24/17 04:00 Resp 18 03/24/17 04:00 BP 147/68 03/24/17 04:00 Pulse Ox 97 03/24/17 04:00 Intake & Output 03/23/17 03/24/17 03/24/17 18:59 06:59 18:59 Intake Total 730 Output Total 0 Balance 730 Weight (lbs) 67.132 kg 67.132 kg Intake: Intake, IV Amount 50 Piperacillin Sodium/ 50 Tazobact 2.25 gm In Sodium Chloride 0.9% 50 ml @ 100 mls/hr IV Q8HR [facility] Rx#:[id number] Tube Feeding 480 Other 200 Output: Urine 0 Stool 0 Active Medications: Current Medications Acetaminophen (Tylenol) 650 mg PO Q6H PRN PRN Reason: Fever > 101 Stop: 05/22/17 12:41 Last Admin: 03/23/17 12:59 Dose: 650 mg Aspirin (Ecotrin) 81 mg PO DAILY [facility] Stop: 05/22/17 09:29 Last Admin: 03/24/17 09:46 Dose: 81 mg Chlorpromazine (Thorazine) 25 mg PO Q8HR PRN; Protocol PRN Reason: Hiccups Stop: 05/23/17 05:59 Last Admin: 03/24/17 05:53 Dose: 25 mg Enoxaparin Sodium (Lovenox) 30 mg SUBQ Q12HR [facility] Stop: 05/22/17 09:44 Last Admin: 03/24/17 09:46 Dose: 30 mg Famotidine (Pepcid) 20 mg PO DAILY [facility] Stop: 05/23/17 08:59 Last Admin: 03/24/17 09:46 Dose: 20 mg Hydralazine HCl (Apresoline 20 Mg/Ml) 10 mg IV Q4H PRN PRN Reason: SBP>160 Stop: 05/21/17 09:37 Last Admin: 03/23/17 22:00 Dose: 10 mg Hydromorphone HCl (Dilaudid) 1 mg IVP Q3HR PRN PRN Reason: Pain (Severe) Stop: 05/20/17 14:55 Last Admin: 03/24/17 01:44 Dose: 1 mg Piperacillin Sod/Tazobactam (Sod 2.25 gm/ Sodium Chloride) 50 mls @ 100 mls/hr IV Q8HR [facility] Stop: 05/20/17 09:29 Last Infusion: 03/23/17 18:56 Dose: Infused Sodium Chloride (Nacl 0.9%) 1,000 mls @ 40 mls/hr IV .Q24H [facility] Stop: 05/21/17 09:44 Last Admin: 03/22/17 17:52 Dose: 40 mls/hr Lactobacillus Rhamnosus (Culturelle) 1 each PO DAILY [facility] Stop: 05/22/17 08:59 Last Admin: 03/24/17 09:46 Dose: 1 each Levothyroxine Sodium (Synthroid) 0.2 mg GT QDAC [facility] Stop: 05/23/17 07:29 Last Admin: 03/24/17 06:39 Dose: 0.2 mg Miscellaneous (Vancomycin Iv Per Pharmacy) 1 ea MC DAILY [facility] Stop: 05/21/17 08:59 Miscellaneous (Probiotic Screen) 1 ea PRN PRN PRN Reason: PROTOCOL Stop: 05/21/17 15:51 Miscellaneous (Clinical Monitoring) 1 ea DAILY PRN PRN Reason: RENAL Stop: 05/22/17 08:25 Ondansetron HCl (Zofran) 4 mg IV UD PRN PRN Reason: Nausea / Vomiting Stop: 05/20/17 07:31 Pantoprazole Sodium (Protonix) 40 mg IVP DAILY [facility] Stop: 05/22/17 09:44 Last Admin: 03/24/17 09:46 Dose: 40 mg Simvastatin (Zocor) 40 mg PO HS [facility] PRN Reason: Protocol Stop: 05/22/17 20:59 Last Admin: 03/23/17 21:24 Dose: 40 mg Tramadol HCl (Ultram) 50 mg PO Q6HR [facility] Stop: 05/22/17 12:44 Last Admin: 03/24/17 06:40 Dose: 50 mg - Procedures Procedures: Procedures Procedure Code Date AMPUTATION OF LOWER LEG 97820 03/20/17 AMPUTATION OF TOE 94013 03/20/17 CATARAC PHACOEMULS/ASPIR 13.41 02/11/10 CATARACT SURG W/IOL 1 STAGE 17132 02/11/10 DETACHMENT AT LEFT LOWER LEG, HIGH, OPEN APPROACH [id number] 03/20/17 DETACHMENT AT RIGHT 1ST TOE, COMPLETE, OPEN APPROACH [id number] 03/20/17 INSERT LENS AT CATAR EXT 13.71 02/11/10 Assessment/Plan - Assessment Assessment: 82 YO MALE WITH MALFUNCTION G TUBE GT WAS CHANGED KUB SHOWED GT IN THE STOMACH AND NOW HAI TUBE FEEDS 1.CONT TUBE FEEDS 2.CONT SUPP CARE 3.WILL SEE NEEDED; CALL IF QUESTIONS
--- NOTE | 2017-03-24 11:23 | Diagnostic Imaging Report ---
Portable chest x-ray HISTORY: Fever There is a poor inspiration. The heart appears to be enlarged. Atherosclerotic calcification seen in the aorta. Allowing for the poor inspiration, no focal point processes are seen. Surgical suture material noted over the mid chest. A vascular catheter tip is in the region of the superior vena cava. IMPRESSION: 1. No definite focal pulmonary processes 2. Cardiomegaly with atherosclerotic vascular changes 3. Surgical changes
--- NOTE | 2017-03-24 14:01 | General Progress Note ---
Subjective - Review of Systems Service Date: 03/24/17 Subjective: sleeping, comfortable Objective - Results Result Diagrams: 03/24/17 06:00 03/24/17 06:00 Recent Labs: Laboratory Last Values WBC 8.1 Th/cmm (4.8-10.8) 03/24/17 06:00 RBC 2.96 Mil/cmm (3.80-5.80) L 03/24/17 06:00 Hgb 9.7 gm/dL (12-16) L 03/24/17 06:00 Hct 28.5 % (41.0-60) L 03/24/17 06:00 MCV 96.4 fl (80-99) 03/24/17 06:00 MCH 32.8 pg (27.0-31.0) H 03/24/17 06:00 MCHC Differential 34.1 pg (28.0-36.0) 03/24/17 06:00 RDW 17.1 % (11.5-20.0) 03/24/17 06:00 Plt Count 260 Th/cmm (150-400) 03/24/17 06:00 MPV 6.5 fl 03/24/17 06:00 Neutrophils % 62.7 % (40.0-80.0) 03/24/17 06:00 Lymphocytes % 20.3 % (20.0-50.0) 03/24/17 06:00 Monocytes % 9.0 % (2.0-10.0) 03/24/17 06:00 Eosinophils % 7.4 % (0.0-5.0) H 03/24/17 06:00 Basophils % 0.6 % (0.0-2.0) 03/24/17 06:00 ESR 96 mm/hr (0-20) H 03/22/17 05:10 PT 10.9 SECONDS (9.5-11.5) 03/21/17 05:05 INR 1.05 (0.5-1.4) 03/21/17 05:05 PTT (Actin FS) 44.6 SECONDS (26.0-38.0) H 03/21/17 05:05 Sodium 134 mEq/L (136-145) L 03/24/17 06:00 Potassium 3.6 mEq/L (3.5-5.1) 03/24/17 06:00 Chloride 101 mEq/L (98-107) 03/24/17 06:00 Carbon Dioxide 26.1 mEq/L (21.0-31.0) 03/24/17 06:00 Anion Gap 10.5 (7.0-16.0) 03/24/17 06:00 BUN 45 mg/dL (7-25) H 03/24/17 06:00 Creatinine 3.6 mg/dL (0.7-1.3) H 03/24/17 06:00 Est GFR ( Amer) TNP 03/24/17 06:00 Est GFR (Non-Af Amer) TNP 03/24/17 06:00 BUN/Creatinine Ratio 12.5 03/24/17 06:00 Glucose 261 mg/dL (70-105) H 03/24/17 06:00 POC Glucose 147 MG/DL (70 - 105) H 03/21/17 07:31 Hemoglobin A1c % 6.8 % (4.0-6.0) H 03/20/17 20:28 Calcium 8.9 mg/dL (8.6-10.3) 03/24/17 06:00 Phosphorus 3.6 mg/dL (2.5-5.0) 03/22/17 05:10 Magnesium 2.0 mg/dL (1.9-2.7) 03/24/17 06:00 Total Bilirubin 0.6 mg/dL (0.3-1.0) 03/21/17 05:05 AST 18 U/L (13-39) 03/21/17 05:05 ALT 8 U/L (7-52) 03/21/17 05:05 Alkaline Phosphatase 83 U/L (34-104) 03/21/17 05:05 C-Reactive Protein 8.7 mg/dL (0.0-0.9) H 03/22/17 05:10 Total Protein 6.8 gm/dL (6.0-8.3) 03/21/17 05:05 Albumin 3.4 gm/dL (4.2-5.5) L 03/21/17 05:05 Globulin 3.4 gm/dL 03/21/17 05:05 Albumin/Globulin Ratio 1.0 (1.0-1.8) 03/21/17 05:05 Random Vancomycin 20.1 ug/mL (5.0-40.0) 03/24/17 06:00 Blood Type A POSITIVE 03/20/17 20:28 Antibody Screen NEGATIVE 03/20/17 20:28 - Physical Exam Vitals and I&O: Vital Signs Temp 99.4 F 03/24/17 04:00 Pulse 111 03/24/17 04:00 Resp 18 03/24/17 04:00 BP 147/68 03/24/17 04:00 Pulse Ox 97 03/24/17 04:00 Intake & Output 03/23/17 03/24/17 03/24/17 18:59 06:59 18:59 Intake Total 730 Output Total 0 Balance 730 Weight (lbs) 67.132 kg 67.132 kg Intake: Intake, IV Amount 50 Piperacillin Sodium/ 50 Tazobact 2.25 gm In Sodium Chloride 0.9% 50 ml @ 100 mls/hr IV Q8HR [facility] Rx#:[id number] Tube Feeding 480 Other 200 Output: Urine 0 Stool 0 Active Medications: Current Medications Acetaminophen (Tylenol) 650 mg PO Q6H PRN PRN Reason: Fever > 101 Stop: 05/22/17 12:41 Last Admin: 03/23/17 12:59 Dose: 650 mg Aspirin (Ecotrin) 81 mg PO DAILY [facility] Stop: 05/22/17 09:29 Last Admin: 03/24/17 09:46 Dose: 81 mg Chlorpromazine (Thorazine) 25 mg PO Q8HR PRN; Protocol PRN Reason: Hiccups Stop: 05/23/17 05:59 Last Admin: 03/24/17 05:53 Dose: 25 mg Enoxaparin Sodium (Lovenox) 30 mg SUBQ Q12HR [facility] Stop: 05/22/17 09:44 Last Admin: 03/24/17 09:46 Dose: 30 mg Famotidine (Pepcid) 20 mg PO DAILY [facility] Stop: 05/23/17 08:59 Last Admin: 03/24/17 09:46 Dose: 20 mg Hydralazine HCl (Apresoline 20 Mg/Ml) 10 mg IV Q4H PRN PRN Reason: SBP>160 Stop: 05/21/17 09:37 Last Admin: 03/23/17 22:00 Dose: 10 mg Hydromorphone HCl (Dilaudid) 1 mg IVP Q3HR PRN PRN Reason: Pain (Severe) Stop: 05/20/17 14:55 Last Admin: 03/24/17 01:44 Dose: 1 mg Piperacillin Sod/Tazobactam (Sod 2.25 gm/ Sodium Chloride) 50 mls @ 100 mls/hr IV Q8HR [facility] Stop: 05/20/17 09:29 Last Infusion: 03/23/17 18:56 Dose: Infused Sodium Chloride (Nacl 0.9%) 1,000 mls @ 40 mls/hr IV .Q24H [facility] Stop: 05/21/17 09:44 Last Admin: 03/22/17 17:52 Dose: 40 mls/hr Vancomycin HCl 1 gm/ Sodium (Chloride) 250 mls @ 165 mls/hr IV ONCE ONE Stop: 03/24/17 22:30 Lactobacillus Rhamnosus (Culturelle) 1 each PO DAILY [facility] Stop: 05/22/17 08:59 Last Admin: 03/24/17 09:46 Dose: 1 each Levothyroxine Sodium (Synthroid) 0.2 mg GT QDAC [facility] Stop: 05/23/17 07:29 Last Admin: 03/24/17 06:39 Dose: 0.2 mg Miscellaneous (Vancomycin Iv Per Pharmacy) 1 [facility] DAILY [facility]AN Stop: 05/21/17 08:59 Miscellaneous (Probiotic Screen) 1 [facility] PRN PRN PRN Reason: PROTOCOL Stop: 05/21/17 15:51 Miscellaneous (Clinical Monitoring) 1 [facility] DAILY PRN PRN Reason: RENAL Stop: 05/22/17 08:25 Ondansetron HCl (Zofran) 4 mg IV UD PRN PRN Reason: Nausea / Vomiting Stop: 05/20/17 07:31 Pantoprazole Sodium (Protonix) 40 mg IVP DAILY [facility] Stop: 05/22/17 09:44 Last Admin: 03/24/17 09:46 Dose: 40 mg Simvastatin (Zocor) 40 mg PO HS [facility] PRN Reason: Protocol Stop: 05/22/17 20:59 Last Admin: 03/23/17 21:24 Dose: 40 mg Tramadol HCl (Ultram) 50 mg PO Q6HR [facility] Stop: 05/22/17 12:44 Last Admin: 03/24/17 06:40 Dose: 50 mg General: Alert, No acute distress HEENT: Atraumatic, PERRLA, EOMI, Mucous membr. moist/pink Neck: Supple, +2 carotid pulse wo bruit Cardiovascular: Regular rate, Normal S1, Normal S2 Lungs: Clear to auscultation Abdomen: Bowel sounds, Soft Extremities: no Edema Neurological: Sensation intact Skin: no Rash Psych/Mental Status: Mood NL - Procedures Procedures: Procedures Procedure Code Date AMPUTATION OF LOWER LEG 66571 03/20/17 AMPUTATION OF TOE 94306 03/20/17 CATARAC PHACOEMULS/ASPIR 13.41 02/11/10 CATARACT SURG W/IOL 1 STAGE 54646 02/11/10 CHANGE FEEDING DEVICE IN UP INTEST TRACT, STUDENT DEAN APPROACH [id number] 03/20/17 CHANGE GASTROSTOMY TUBE 37808 03/20/17 DETACHMENT AT LEFT LOWER LEG, HIGH, OPEN APPROACH [id number] 03/20/17 DETACHMENT AT RIGHT 1ST TOE, COMPLETE, OPEN APPROACH [id number] 03/20/17 INSERT LENS AT CATAR EXT 13.71 02/11/10 Assessment/Plan - Assessment Assessment: 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, 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 Hypothyroid Anemia of CKD Dyslipidemia S/P GT Replacement - Plan Plan: Lab - Result Diagrams 03/24/17 06:00 03/24/17 06:00 Current Medications Acetaminophen (Tylenol) 650 mg PO Q6H PRN PRN Reason: Fever > 101 Stop: 05/22/17 12:41 Last Admin: 03/23/17 12:59 Dose: 650 mg Aspirin (Ecotrin) 81 mg PO DAILY [facility] Stop: 05/22/17 09:29 Last Admin: 03/24/17 09:46 Dose: 81 mg Chlorpromazine (Thorazine) 25 mg PO Q8HR PRN; Protocol PRN Reason: Hiccups Stop: 05/23/17 05:59 Last Admin: 03/24/17 05:53 Dose: 25 mg Enoxaparin Sodium (Lovenox) 30 mg SUBQ Q12HR [facility] Stop: 05/22/17 09:44 Last Admin: 03/24/17 09:46 Dose: 30 mg Famotidine (Pepcid) 20 mg PO DAILY [facility] Stop: 05/23/17 08:59 Last Admin: 03/24/17 09:46 Dose: 20 mg Hydralazine HCl (Apresoline 20 Mg/Ml) 10 mg IV Q4H PRN PRN Reason: SBP>160 Stop: 05/21/17 09:37 Last Admin: 03/23/17 22:00 Dose: 10 mg Hydromorphone HCl (Dilaudid) 1 mg IVP Q3HR PRN PRN Reason: Pain (Severe) Stop: 05/20/17 14:55 Last Admin: 03/24/17 01:44 Dose: 1 mg Piperacillin Sod/Tazobactam (Sod 2.25 gm/ Sodium Chloride) 50 mls @ 100 mls/hr IV Q8HR [facility] Stop: 05/20/17 09:29 Last Infusion: 03/23/17 18:56 Dose: Infused Sodium Chloride (Nacl 0.9%) 1,000 mls @ 40 mls/hr IV .Q24H [facility] Stop: 05/21/17 09:44 Last Admin: 03/22/17 17:52 Dose: 40 mls/hr Vancomycin HCl 1 gm/ Sodium (Chloride) 250 mls @ 165 mls/hr IV ONCE ONE Stop: 03/24/17 22:30 Lactobacillus Rhamnosus (Culturelle) 1 each PO DAILY [facility] Stop: 05/22/17 08:59 Last Admin: 03/24/17 09:46 Dose: 1 each Levothyroxine Sodium (Synthroid) 0.2 mg GT QDAC [facility] Stop: 05/23/17 07:29 Last Admin: 03/24/17 06:39 Dose: 0.2 mg Miscellaneous (Vancomycin Iv Per Pharmacy) 1 ea DAILY [facility] Stop: 05/21/17 08:59 Miscellaneous (Probiotic Screen) 1 ea PRN PRN PRN Reason: PROTOCOL Stop: 05/21/17 15:51 Miscellaneous (Clinical Monitoring) 1 ea DAILY PRN PRN Reason: RENAL Stop: 05/22/17 08:25 Ondansetron HCl (Zofran) 4 mg IV UD PRN PRN Reason: Nausea / Vomiting Stop: 05/20/17 07:31 Pantoprazole Sodium (Protonix) 40 mg IVP DAILY [facility] Stop: 05/22/17 09:44 Last Admin: 03/24/17 09:46 Dose: 40 mg Simvastatin (Zocor) 40 mg PO HS [facility] PRN Reason: Protocol Stop: 05/22/17 20:59 Last Admin: 03/23/17 21:24 Dose: 40 mg Tramadol HCl (Ultram) 50 mg PO Q6HR [facility] Stop: 05/22/17 12:44 Last Admin: 03/24/17 06:40 Dose: 50 mg currently being dialyzed continue zosyn Lab - Result Diagrams 03/24/17 06:00 03/24/17 06:00 Nutritional Asmnt/Malnutr-PDOC - Dietary Evaluation Malnutrition Findings (Please click <Entered> for more info): Nutritional Asmnt/Malnutrition Start: 03/21/17 17: 21 Text: Status: Complete Freq: Document 03/21/17 17:21 GSUN (Rec: 03/21/17 17:36 GSUN [email or web address]) Nutritional Asmnt/Malnutrition Patient General Information Nutritional Screening Consult Diagnosis Severe PAD Pertinent Medical Hx/Surgical Hx HTN, elevated uric acid, insulin dependent DM, acid reflux disease, hypothyroidism , hyperlipidemia, fem-pop bypass, chronic renal insufficiency Subjective Information [address] consult for BG 187. Per RN notes, pt brought in from dialysis. 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 Spoke with JOSE Jon, RN stated pt with g-tube present, however there is a cut and needing replacement, GI MD aware, NPO until replacement. Current Diet Order/ Nutrition Support NPO/no diet order Pertinent Medications D5-0.45ns, Dilaudid, Vancomycin, Zofran Pertinent Labs 03/20: A1c 6.8H 03/21: BUN 42H, creaitnine 2.6H , glucose 163H Nutritional Hx/Data Height 1.63 m Height (Calculated Centimeters) 162.6 Current Weight (lbs) 67.54 kg Weight (Calculated Kilograms) 67.5 Weight (Calculated Grams) [address]179.9 [place] Body Weight 130 Weight Status Approriate GI Symptoms Skin Integrity/Comment: William 14. Sacral pressure area. 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 Problem Problem Indequate intake from enteral nutrition related to Etiology malfunctioning gtube aeb Signs/Symptoms: currently NPO, awaiting replacement Intervention/Recommendation Comments 1. When g-tube replaced and appropriate to resume feeding, recommend Novasource Renal at 40ml/hr x 24hrs, providing 960ml total volume, 1920kcal, 87g protein. Initiate at 20ml/ hr x 24hrs, monitor tolerance, increase 10ml/hr until goal 40ml/hr. Expected Outcomes/Goals Expected Outcomes/Goals 1. Pt to resume tube feeding and meet at least 100% of estimated nutritinoal needs with tolerance.
[2017-03-25 06:24] LABS: % BASOPHILS 0.6 % (0.0-2.0); % EOSINOPHILS 10.9 % (0.0-5.0); % LYMPHOCYTES 18.4 % (20.0-50.0); % MONOCYTES 7.8 % (2.0-10.0); % NEUTROPHILS 62.3 % (40.0-80.0); HEMATOCRIT 27.2 % (41.0-60); HEMOGLOBIN 9.1 gm/dL (12-16); MEAN CELL VOLUME 95.8 fl (80-99); MEAN CORPUSCULAR HEMOGLOBIN 31.9 pg (27.0-31.0); MEAN CORPUSCULAR HGB CONC 33.3 pg (28.0-36.0); MEAN PLATELET VOLUME 5.9 fl; NEUTROPHILE ABSOLUTE 4.2 Th/cmm (1.8-8.0); PLATELET COUNT 277 Th/cmm (150-400); RED BLOOD COUNT 2.84 Mil/cmm (3.80-5.80); RED CELL DISTRIBUTION WIDTH 16.5 % (11.5-20.0); WHITE BLOOD COUNT 6.6 Th/cmm (4.8-10.8)
[2017-03-25] MEDS: Levothyroxine 0.1 Mg Tab GT SCH (06:44)
[2017-03-25 06:47] LABS: ANION GAP 9.6 (7.0-16.0); BUN - UREA NITROGEN 35 mg/dL (7-25); BUN/CREATININE RATIO 12.1; CALCIUM SERUM 8.9 mg/dL (8.6-10.3); CARBON DIOXIDE 26.1 mEq/L (21.0-31.0); CHLORIDE 102 mEq/L (98-107); CREATININE - SERUM 2.9 mg/dL (0.7-1.3); GLUCOSE 286 mg/dL (70-105); MAGNESIUM 1.9 mg/dL (1.9-2.7); POTASSIUM SERUM 3.7 mEq/L (3.5-5.1); SODIUM SERUM 134 mEq/L (136-145)
[2017-03-25] MEDS ORDERED: Enoxaparin 30 mg/0.3 mL 0.3mL Syr SUBQ SCH (09:00)
[2017-03-25] MEDS: Lactobacillus Rhamnosus 10 Billion CFU Capsule PO SCH (10:48)
--- NOTE | 2017-03-25 13:05 | General Progress Note ---
Subjective - Review of Systems Service Date: 03/25/17 Subjective: sleeping, comfortable Objective - Results Result Diagrams: 03/25/17 06:03 03/25/17 06:03 Recent Labs: Laboratory Last Values WBC 6.6 Th/cmm (4.8-10.8) 03/25/17 06:03 RBC 2.84 Mil/cmm (3.80-5.80) L 03/25/17 06:03 Hgb 9.1 gm/dL (12-16) L 03/25/17 06:03 Hct 27.2 % (41.0-60) L 03/25/17 06:03 MCV 95.8 fl (80-99) 03/25/17 06:03 MCH 31.9 pg (27.0-31.0) H 03/25/17 06:03 MCHC Differential 33.3 pg (28.0-36.0) 03/25/17 06:03 RDW 16.5 % (11.5-20.0) 03/25/17 06:03 Plt Count 277 Th/cmm (150-400) 03/25/17 06:03 MPV 5.9 fl 03/25/17 06:03 Neutrophils % 62.3 % (40.0-80.0) 03/25/17 06:03 Lymphocytes % 18.4 % (20.0-50.0) L 03/25/17 06:03 Monocytes % 7.8 % (2.0-10.0) 03/25/17 06:03 Eosinophils % 10.9 % (0.0-5.0) H 03/25/17 06:03 Basophils % 0.6 % (0.0-2.0) 03/25/17 06:03 ESR 96 mm/hr (0-20) H 03/22/17 05:10 PT 10.9 SECONDS (9.5-11.5) 03/21/17 05:05 INR 1.05 (0.5-1.4) 03/21/17 05:05 PTT (Actin FS) 44.6 SECONDS (26.0-38.0) H 03/21/17 05:05 Sodium 134 mEq/L (136-145) L 03/25/17 06:03 Potassium 3.7 mEq/L (3.5-5.1) 03/25/17 06:03 Chloride 102 mEq/L (98-107) 03/25/17 06:03 Carbon Dioxide 26.1 mEq/L (21.0-31.0) 03/25/17 06:03 Anion Gap 9.6 (7.0-16.0) 03/25/17 06:03 BUN 35 mg/dL (7-25) H 03/25/17 06:03 Creatinine 2.9 mg/dL (0.7-1.3) H 03/25/17 06:03 Est GFR ( Amer) TNP 03/25/17 06:03 Est GFR (Non-Af Amer) TNP 03/25/17 06:03 BUN/Creatinine Ratio 12.1 03/25/17 06:03 Glucose 286 mg/dL (70-105) H 03/25/17 06:03 POC Glucose 270 MG/DL (70 - 105) H 03/25/17 12:13 Hemoglobin A1c % 6.8 % (4.0-6.0) H 03/20/17 20:28 Calcium 8.9 mg/dL (8.6-10.3) 03/25/17 06:03 Phosphorus 3.6 mg/dL (2.5-5.0) 03/22/17 05:10 Magnesium 1.9 mg/dL (1.9-2.7) 03/25/17 06:03 Total Bilirubin 0.6 mg/dL (0.3-1.0) 03/21/17 05:05 AST 18 U/L (13-39) 03/21/17 05:05 ALT 8 U/L (7-52) 03/21/17 05:05 Alkaline Phosphatase 83 U/L (34-104) 03/21/17 05:05 C-Reactive Protein 8.7 mg/dL (0.0-0.9) H 03/22/17 05:10 Total Protein 6.8 gm/dL (6.0-8.3) 03/21/17 05:05 Albumin 3.4 gm/dL (4.2-5.5) L 03/21/17 05:05 Globulin 3.4 gm/dL 03/21/17 05:05 Albumin/Globulin Ratio 1.0 (1.0-1.8) 03/21/17 05:05 Random Vancomycin 20.1 ug/mL (5.0-40.0) 03/24/17 06:00 Blood Type A POSITIVE 03/20/17 20:28 Antibody Screen NEGATIVE 03/20/17 20:28 - Physical Exam Vitals and I&O: Vital Signs Temp 99.9 F 03/25/17 11:36 Pulse 102 03/25/17 11:36 Resp 20 03/25/17 11:36 BP 149/63 03/25/17 11:36 Pulse Ox 99 03/25/17 11:36 Intake & Output 03/24/17 03/25/17 03/25/17 18:59 06:59 18:59 Intake Total 740 Output Total 1999 Balance -1260 Weight (lbs) 67.132 kg Intake: Oral 0 Tube Feeding 540 Other 200 Output: Other 1999 Other: # Voids 1 # Bowel Movements 1 Active Medications: Current Medications Acetaminophen (Tylenol) 650 mg PO Q6H PRN PRN Reason: Fever > 101 Stop: 05/22/17 12:41 Last Admin: 03/23/17 12:59 Dose: 650 mg Aspirin (Ecotrin) 81 mg PO DAILY [facility] Stop: 05/22/17 09:29 Last Admin: 03/25/17 09:39 Dose: 81 mg Chlorpromazine (Thorazine) 25 mg PO Q8HR PRN; Protocol PRN Reason: Hiccups Stop: 05/23/17 05:59 Last Admin: 03/25/17 10:48 Dose: 25 mg Enoxaparin Sodium (Lovenox) 30 mg SUBQ DAILY [facility] Stop: 05/24/17 08:59 Last Admin: 03/25/17 09:43 Dose: 30 mg Famotidine (Pepcid) 20 mg PO DAILY [facility] Stop: 05/23/17 08:59 Last Admin: 03/25/17 09:39 Dose: 20 mg Hydralazine HCl (Apresoline 20 Mg/Ml) 10 mg IV Q4H PRN PRN Reason: SBP>160 Stop: 05/21/17 09:37 Last Admin: 03/25/17 09:40 Dose: 10 mg Hydromorphone HCl (Dilaudid) 1 mg IVP Q3HR PRN PRN Reason: Pain (Severe) Stop: 05/20/17 14:55 Last Admin: 03/24/17 01:44 Dose: 1 mg Piperacillin Sod/Tazobactam (Sod 2.25 gm/ Sodium Chloride) 50 mls @ 100 mls/hr IV Q8HR [facility] Stop: 05/20/17 09:29 Last Admin: 03/24/17 16:10 Dose: 100 mls/hr Lactobacillus Rhamnosus (Culturelle) 1 each PO DAILY [facility] Stop: 05/22/17 08:59 Last Admin: 03/25/17 10:48 Dose: 1 each Levothyroxine Sodium (Synthroid) 0.2 mg GT QDAC [facility]AN Stop: 05/23/17 07:29 Last Admin: 03/25/17 06:44 Dose: 0.2 mg Miscellaneous (Vancomycin Iv Per Pharmacy) 1 [facility] DAILY [facility]AN Stop: 05/21/17 08:59 Miscellaneous (Probiotic Screen) 1 [facility] PRN PRN PRN Reason: PROTOCOL Stop: 05/21/17 15:51 Miscellaneous (Clinical Monitoring) 1 [facility] DAILY PRN PRN Reason: RENAL Stop: 05/22/17 08:25 Miscellaneous (Vancomycin Iv Per Pharmacy) 1 [facility] PRN STA Stop: 03/25/17 12:50 Ondansetron HCl (Zofran) 4 mg IV UD PRN PRN Reason: Nausea / Vomiting Stop: 05/20/17 07:31 Pantoprazole Sodium (Protonix) 40 mg IVP DAILY [facility] Stop: 05/22/17 09:44 Last Admin: 03/25/17 09:39 Dose: 40 mg Simvastatin (Zocor) 40 mg PO HS [facility] PRN Reason: Protocol Stop: 05/22/17 20:59 Last Admin: 03/24/17 20:26 Dose: 40 mg Tramadol HCl (Ultram) 50 mg PO Q6HR [facility] Stop: 05/22/17 12:44 Last Admin: 03/25/17 12:08 Dose: 50 mg General: Alert, No acute distress HEENT: Atraumatic, PERRLA, EOMI, Mucous membr. moist/pink Neck: Supple, +2 carotid pulse wo bruit Cardiovascular: Regular rate, Normal S1, Normal S2 Lungs: Clear to auscultation Abdomen: Bowel sounds, Soft Extremities: Other (dressings intact), no Edema Neurological: Sensation intact Skin: no Rash Psych/Mental Status: Mood NL - Procedures Procedures: Procedures Procedure Code Date AMPUTATION OF LOWER LEG 93353 03/20/17 AMPUTATION OF TOE 99285 03/20/17 CATARAC PHACOEMULS/ASPIR 13.41 02/11/10 CATARACT SURG W/IOL 1 STAGE 67842 02/11/10 CHANGE FEEDING DEVICE IN UP INTEST TRACT, BUS INSPECTOR APPROACH [id number] 03/20/17 CHANGE GASTROSTOMY TUBE 28764 03/20/17 DETACHMENT AT LEFT LOWER LEG, HIGH, OPEN APPROACH [id number] 03/20/17 DETACHMENT AT RIGHT 1ST TOE, COMPLETE, OPEN APPROACH [id number] 03/20/17 INSERT LENS AT CATAR EXT 13.71 02/11/10 Assessment/Plan - Assessment Assessment: 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, 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 Hypothyroid Anemia of CKD Dyslipidemia S/P GT Replacement - Plan Plan: Lab - Result Diagrams 03/24/17 06:00 03/24/17 06:00 Current Medications Acetaminophen (Tylenol) 650 mg PO Q6H PRN PRN Reason: Fever > 101 Stop: 05/22/17 12:41 Last Admin: 03/23/17 12:59 Dose: 650 mg Aspirin (Ecotrin) 81 mg PO DAILY [facility] Stop: 05/22/17 09:29 Last Admin: 03/24/17 09:46 Dose: 81 mg Chlorpromazine (Thorazine) 25 mg PO Q8HR PRN; Protocol PRN Reason: Hiccups Stop: 05/23/17 05:59 Last Admin: 03/24/17 05:53 Dose: 25 mg Enoxaparin Sodium (Lovenox) 30 mg SUBQ Q12HR [facility] Stop: 05/22/17 09:44 Last Admin: 03/24/17 09:46 Dose: 30 mg Famotidine (Pepcid) 20 mg PO DAILY [facility] Stop: 05/23/17 08:59 Last Admin: 03/24/17 09:46 Dose: 20 mg Hydralazine HCl (Apresoline 20 Mg/Ml) 10 mg IV Q4H PRN PRN Reason: SBP>160 Stop: 05/21/17 09:37 Last Admin: 03/23/17 22:00 Dose: 10 mg Hydromorphone HCl (Dilaudid) 1 mg IVP Q3HR PRN PRN Reason: Pain (Severe) Stop: 05/20/17 14:55 Last Admin: 03/24/17 01:44 Dose: 1 mg Piperacillin Sod/Tazobactam (Sod 2.25 gm/ Sodium Chloride) 50 mls @ 100 mls/hr IV Q8HR [facility] Stop: 05/20/17 09:29 Last Infusion: 03/23/17 18:56 Dose: Infused Sodium Chloride (Nacl 0.9%) 1,000 mls @ 40 mls/hr IV .Q24H [facility] Stop: 05/21/17 09:44 Last Admin: 03/22/17 17:52 Dose: 40 mls/hr Vancomycin HCl 1 gm/ Sodium (Chloride) 250 mls @ 165 mls/hr IV ONCE ONE Stop: 03/24/17 22:30 Lactobacillus Rhamnosus (Culturelle) 1 each PO DAILY [facility] Stop: 05/22/17 08:59 Last Admin: 03/24/17 09:46 Dose: 1 each Levothyroxine Sodium (Synthroid) 0.2 mg GT QDAC [facility] Stop: 05/23/17 07:29 Last Admin: 03/24/17 06:39 Dose: 0.2 mg Miscellaneous (Vancomycin Iv Per Pharmacy) 1 [facility] DAILY [facility] Stop: 05/21/17 08:59 Miscellaneous (Probiotic Screen) 1 [facility] PRN PRN PRN Reason: PROTOCOL Stop: 05/21/17 15:51 Miscellaneous (Clinical Monitoring) 1 [facility] DAILY PRN PRN Reason: RENAL Stop: 05/22/17 08:25 Ondansetron HCl (Zofran) 4 mg IV UD PRN PRN Reason: Nausea / Vomiting Stop: 05/20/17 07:31 Pantoprazole Sodium (Protonix) 40 mg IVP DAILY [facility] Stop: 05/22/17 09:44 Last Admin: 03/24/17 09:46 Dose: 40 mg Simvastatin (Zocor) 40 mg PO HS [facility]AN PRN Reason: Protocol Stop: 05/22/17 20:59 Last Admin: 03/23/17 21:24 Dose: 40 mg Tramadol HCl (Ultram) 50 mg PO Q6HR [facility] Stop: 05/22/17 12:44 Last Admin: 03/24/17 06:40 Dose: 50 mg pt. was dialyzed yesterday & tolerated it well for dc today, continue Vanco @ dialysis unit for 1 week Lab - Result Diagrams 03/25/17 06:03 03/25/17 06:03 Nutritional Asmnt/Malnutr-PDOC - Dietary Evaluation Malnutrition Findings (Please click <Entered> for more info): Nutritional Asmnt/Malnutrition Start: 03/21/17 17: 21 Text: Status: Complete Freq: Document 03/21/17 17:21 GSMAX (Rec: 03/21/17 17:36 GSMAX [email or web address]) Nutritional Asmnt/Malnutrition Patient General Information Nutritional Screening Consult Diagnosis Severe PAD Pertinent Medical Hx/Surgical Hx HTN, elevated uric acid, insulin dependent DM, acid reflux disease, hypothyroidism , hyperlipidemia, fem-pop bypass, chronic renal insufficiency Subjective Information 82 [address] consult for BG 187. Per RN notes, pt brought in from dialysis. 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 Spoke with RN JOSE Jon stated pt with g-tube present, however there is a cut and needing replacement, GI MD aware, NPO until replacement. Current Diet Order/ Nutrition Support NPO/no diet order Pertinent Medications D5-0.45ns, Dilaudid, Vancomycin, Zofran Pertinent Labs 03/20: A1c 6.8H 03/21: BUN 42H, creaitnine 2.6H , glucose 163H Nutritional Hx/Data Height 1.63 m Height (Calculated Centimeters) 162.6 Current Weight (lbs) 67.54 kg Weight (Calculated Kilograms) 67.5 Weight (Calculated Grams) 95283.9 [place] Body Weight 130 Weight Status Approriate GI Symptoms Skin Integrity/Comment: William 14. Sacral pressure area. 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 Problem Problem Indequate intake from enteral nutrition related to Etiology malfunctioning gtube aeb Signs/Symptoms: currently NPO, awaiting replacement Intervention/Recommendation Comments 1. When g-tube replaced and appropriate to resume feeding, recommend Novasource Renal at 40ml/hr x 24hrs, providing 960ml total volume, 1920kcal, 87g protein. Initiate at 20ml/ hr x 24hrs, monitor tolerance, increase 10ml/hr until goal 40ml/hr. Expected Outcomes/Goals Expected Outcomes/Goals 1. Pt to resume tube feeding and meet at least 100% of estimated nutritinoal needs with tolerance.
--- NOTE | 2017-03-28 21:09 | Discharge Summary ---
DATE OF DISCHARGE: 03/25/2017 ADMITTING DIAGNOSES: 1. Severe peripheral arterial disease with bilateral lower extremity gangrene, left worse than right. 2. Multiple left-sided gangrenous toes and heel necrosis. 3. Right big toe dry gangrene. 4. History of diabetes with vascular complications. 5. Diabetes with no neurological complications. 6. End-stage renal disease on hemodialysis. 7. History of coronary artery disease, status post coronary artery bypass graft. 8. History of insulin-dependent diabetes. 9. History of hypothyroidism. 10. History of hyperlipidemia. 11. Hyponatremia. 12. Chronic anemia secondary to chronic renal insufficiency. 13. History of PEG placement. 14. History of recent femoral popliteal bypass on the left lower extremity. DISCHARGE DIAGNOSES: 1. Status post left-sided BKA. 2. Status post right first-digit amputation. 3. History of diabetes with vascular complications. 4. Diabetes with no neurological complications. 5. End-stage renal disease on hemodialysis. 6. History of coronary artery disease, status post coronary artery bypass graft. 7. History of insulin-dependent diabetes. 8. History of hypothyroidism. 9. History of hyperlipidemia. 10. Hyponatremia. 11. Chronic anemia secondary to chronic renal insufficiency. 12. History of PEG placement. 13. History of femoral popliteal bypass on the left lower extremity. 14. Dislodged G-tube, status post replacement. CONSULTANTS: 1. Dr. Sanchez, General Surgery. 2. Dr. Juan A Lee, Cardiology. 3. Dr. Celso Flores, GI. 4. Dr. Grady for Nephrology. MAJOR PROCEDURES: On 03/21/2017, he underwent a left BKA and amputation of the right big toe at the MP joint. Upper GI series done on 03/21/2017 shows intraluminal confirmation of the patient's percutaneous G-tube. A repeat upper GI on 03/22/2017 also shows gastrostomy tube in stomach area. On 03/22/2017, he had a G-tube change without any complications. 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 As noted above, the patient had undergone a fem-pop of the left lower extremity after being diagnosed with severe PAD. The surgery was unsuccessful and his digits were noted to be worsening with mostly due to dry gangrene, specifically on the left first, third, fourth, and fifth toes. There was also noticeable left heel necrosis and on the right right big-dry gangrene. Given the failed bypass along with the completionj of terminal operator IV antibiotics which he had received after the surgery, it was decided by the family that the best course of action would be to have the amputations. The patient was admitted to telemetry and soon after had the above-named procedures. His G-tube was also noted to be dislodged and therefore, he underwent a G-tube placement. His postop care was uneventful. The patient did require Dilaudid round the clock initially for severe pain, but cardiac cheema he remained stable. The patient was treated with broad-spectrum IV antibiotics, namely vancomycin and Zosyn and was also restarted on his medications once his G-tube feedings resumed. CONDITION ON DISCHARGE: Stable. DISCHARGE MEDICATIONS: Include vancomycin IV per pharmacy x7 more days, allopurinol 100 mg b.i.d., bisacodyl 5 mg p.r.n. for constipation, chlorpromazine 25 q8, folic acid and vitamin B every day, 70/30 insulin 30 units Monday, Monday and Fridays and 40 units on the rest of the days, levothyroxine 200 mcg every day, aspirin 81 every day, famotidine 20 mg every day, simvastatin 40 at bedtime. DISPOSITION: The patient was discharged home with home health for IV antibiotics and daily wound care. He is to follow up with his primary care doctor within 2-3 days and With surgery as scheduled. JOB# [id number] PATRIZIA
--- NOTE | 2017-04-03 12:32 | Consultation ---
DATE OF CONSULTATION: 03/20/2017 REFERRING PHYSICIAN: Dr. Garland. REASON FOR CONSULTATION: Gangrene of the left foot. Thank you for referring this patient to me. HISTORY OF PRESENT ILLNESS: An 82-year-old male with significant peripheral vascular disease, requiring left femoropopliteal bypass graft few months prior. His circulation to the left foot has remained unimproved and his creatinine worse and is getting gangrenous. Other comorbidities include coronary artery disease, hypertension, gout, diabetes mellitus, and chronic renal disease. LABORATORY STUDIES: On this admission showed high sugar and elevated WBC. PHYSICAL EXAMINATION: Examination of the lower extremities, gangrene of left foot and gangrene of the right big toe. RECOMMENDATIONS: The patient will need left below-knee amputation and amputation of the right big toe. I will get consent from family and schedule the patient for surgery. JOB# [id number]
== END 2017-03-25 14:52 | disposition home or self-care (01) | DRG 239 ==
LOC: TELE 17:51 → UNDODISIN 23:53
PROVIDERS: ADMIT Internal Medicine; ATTEND Internal Medicine
PROC: 0Y6J0Z1 Detachment at Left Lower Leg, High, Open Approach (ICD-10-PCS; principal; 2017-03-21)
PROC: 0Y6P0Z0 Detachment at Right 1st Toe, Complete, Open Approach (ICD-10-PCS; 2017-03-21)
PROC: 0D20XUZ Change Feeding Device in Upper Intestinal Tract, External Approach (ICD-10-PCS; 2017-03-22)
PROC: 5A1D60Z (ICD-10-PCS; 2017-03-22)
DX: E11.52 Type 2 diabetes mellitus with diabetic peripheral angiopathy with gangrene (principal); N18.6 End stage renal disease; E46 Unspecified protein-calorie malnutrition; E11.22 Type 2 diabetes mellitus with diabetic chronic kidney disease; K94.23 Gastrostomy malfunction; E87.1 Hypo-osmolality and hyponatremia; I12.0 Hypertensive chronic kidney disease with stage 5 chronic kidney disease or end stage renal disease; R13.10 Dysphagia, unspecified; E03.9 Hypothyroidism, unspecified; E78.5 Hyperlipidemia, unspecified; D63.1 Anemia in chronic kidney disease; K21.9 Gastro-esophageal reflux disease without esophagitis; M10.9 Gout, unspecified; Z66 Do not resuscitate; E66.9 Obesity, unspecified; E11.42 Type 2 diabetes mellitus with diabetic polyneuropathy; I25.119 Atherosclerotic heart disease of native coronary artery with unspecified angina pectoris; D50.9 Iron deficiency anemia, unspecified; Y83.8 Other surgical procedures as the cause of abnormal reaction of the patient, or of later complication, without mention of misadventure at the time of the procedure; Y92.89 Other specified places as the place of occurrence of the external cause; Z68.25 Body mass index [BMI] 25.0-25.9, adult; Z95.1 Presence of aortocoronary bypass graft; Z99.2 Dependence on renal dialysis; Z79.4 Long term (current) use of insulin
CPT/HCPCS: 36415-UA; 71010-TC; 80048-TC; 80053-TC; 80202-TC; 82948-90; 83036-90; 83735-TC; 84100-TC; 85025-TC; 85610-TC; 85652-TC; 86141-TC; 86850-TC; 86900-TC; 86901-TC; 88304-TC; 90937; 93005; A4217; C9113; J0360; J0690; J1170; J1650; J2270; J2543; J3370; J7030; Q0161; Q0164; X6026; Z7610

== ENCOUNTER 2017-08-02 16:55 | Inpatient (IN) | payer MEDICARE, MEDICAID ==
--- NOTE | 2017-08-02 17:41 | History and Physical ---
History of Present Illness - HPI Chief Complaint: Gangrene of second right toe HPI: This a patient with HX of PVD S/P BK amputation of left leg and right big toe. that 3 weeks started to have edema, and rednessHe received of second left big toe. He received AB treatment with no improvement. Later finger became blue and later dark. Dx of gangrene was done and patient was hospitalized for amputation. Past Medical History Cardiovascular: Report: CAD, CHF, HTN Pulmonary: Report: No Pertinent Hx AVIATION MECHANIC: Report: No Pertinent Hx GI: Report: No Pertinent Hx Psych: Report: No Pertinent Hx Musculoskeletal: Report: Weakness Rheumatologic: Report: No pertinent Hx Infectious Disease: Report: Other (Gangrene of second toe) Renal/: Report: Chronic Renal Failure, Other (ESRD on HD) Endocrine: Report: Diabetes Dermatology: Report: No Pertinent Hx - Past Surgical History Past Surgical History: CABG, Other (S/P CABG, S/P intestinal resection, BK amputation of left leg and amputation of right big toe) Family Medical History - Family Member Mother Ethnicity: Living Status: Hx Family Cancer: No Hx Family Coronary Artery Disease: Yes Hx Family Congestive Heart Failure: No Hx Family Hypertension: Yes Hx Family Stroke: No Hx Family Diabetes: Yes Hx Family Seizures: No Hx Family Dementia: No Hx Family AIDS: No Hx Family HIV: No Hx Family COPD: No Hx Family Hepatitis: No Hx Family Psychiatric Problems: No Hx Family Tuberculosis: No Social History Smoke: No Alcohol: None Drugs: None Lives: With Family Domestic Violence: Negative - Medications Home Medications: Home Medication Medication Instructions Recorded Type Allopurinol 100 mg GT BID 03/20/17 History Aspirin EC [Ecotrin] 81 mg PO DAILY 03/20/17 History Bisacodyl [Dulcolax 5 Mg Ec Tab] 5 MWF 03/20/17 History Bisacodyl [Dulcolax 5 Mg Ec Tab] 10 03/20/17 History Chlorpromazine HCl 25 mg PO Q8H 03/20/17 History Famotidine 20 mg GT DAILY 03/20/17 History Folic Acid/Vit Bcomp,C [Micheline-John 1 tab GT DAILY 03/20/17 History Tablet] Insulin 70/30 [NovoLIN 70/30] 30 units SUBQ MWF 03/20/17 History Insulin 70/30 [NovoLIN 70/30] 40 units SUBQ 03/20/17 History Levothyroxine [Synthroid] 200 mcg PO DAILY 03/20/17 History Ranitidine HCl [Ranitidine*] 150 mg GT DAILY 03/20/17 History Simvastatin [Zocor] 40 mg PO HS 03/20/17 History Sulfamethoxazole/Trimethoprim 1 tab GT BID 03/20/17 History [Sulfamethoxazole-Tmp Ds Tablet] Acetaminophen [Tylenol] 650 mg PO Q6H PRN tab 03/25/17 Rx Enoxaparin [Lovenox] 30 mg SUBQ DAILY syr 03/25/17 Rx Famotidine [Pepcid] 20 mg PO DAILY tab 03/25/17 Rx Lactobacillus Rhamnosus 1 each PO DAILY cap.sprink 03/25/17 Rx [Culturelle] Levothyroxine [Synthroid] 0.2 mg GT QDAC tab 03/25/17 Rx Pantoprazole [Protonix] 40 mg IVP DAILY vial 03/25/17 Rx chlorproMAZINE [Thorazine] 25 mg PO Q8HR PRN tab 03/25/17 Rx cloNIDine HCl [Catapres] 0.1 mg GT Q6HR PRN tab 03/25/17 Rx traMADol HCl [Ultram*] 50 mg PO Q6HR tab 03/25/17 Rx - Allergies Allergies/Adverse Reactions: Allergies Allergy/AdvReac Type Severity Reaction Status Date / Time No Known Allergies Allergy Verified 03/20/17 19:04 Review of Systems - Review of Systems Constitutional: Report: Weakness Eyes: Report: No Significant ENT: Report: No Significant Respiratory: Report: No Significant Cardiovascular: Report: No Significant Genitourinary: Report: No Significant Musculoskeletal: Report: Foot Pain Skin: Report: No Significant Neurological: Report: Weakness Physical Exam - Physical Exam HEENT: Report: Ears Nose Throat within normal limits Neck: Report: Within normal limits Cardiovascular Systems: Report: Regular, Rate and Rhythm Respiratory: Report: Breath Sounds are within normal limits Abdomen: Report: Non-tender to palpation Back: Report: Inspection of back is within normal limits. Extremities: Report: Other (BK amputation of left leg, amputation of right big toe, Second right toe is blue and black in color, with no circulation) Skin: Report: Other (Second big toe is blue and black. ) Neuro/Psych: Report: Mood affect is within normal limits, CN II-XII intact - Assessment Assessment: Patient is awake, alert, calm, in no acute distress. Dx: Gangren of second right toe, ERSD on HD, PVD, CHF, DM, HTN, Gout, S/P BK amputation of left leg, S /P amputation of right big toe. - Plan Plan: NS lock, Ceftriaxone 1 gr IV daily, Pain management, Continue with home meds, Insulin Sliding scale, consult with Dr. Sanchez and Dr. Grady. Tomorrow surgery will be done. Will continue to monitor.
[2017-08-02 18:01] LABS: % EOSINOPHILS 2.8 % (0.0-5.0); % LYMPHOCYTES 15.3 % (20.0-50.0); % MONOCYTES 5.6 % (2.0-10.0); % NEUTROPHILS 76.3 % (40.0-80.0); EOSINOPHILE ABSOLUTE 0.2 Th/cmm (0.1-0.4); HEMOGLOBIN 10.8 gm/dL (12-16); LYMPHOCYTE ABSOLUTE 1.2 Th/cmm (1.5-3.0); MEAN CORPUSCULAR HEMOGLOBIN 32.4 pg (27.0-31.0); MEAN CORPUSCULAR HGB CONC 33.4 pg (28.0-36.0); MEAN PLATELET VOLUME 6.8 fl; MONOCYTE ABSOLUTE 0.4 Th/cmm (0.3-1.0); NEUTROPHILE ABSOLUTE 5.9 Th/cmm (1.8-8.0); RED BLOOD COUNT 3.32 Mil/cmm (3.80-5.80); RED CELL DISTRIBUTION WIDTH 16.8 % (11.5-20.0); WHITE BLOOD COUNT 7.7 Th/cmm (4.8-10.8)
[2017-08-02 18:06] LABS: HEMATOCRIT 32.2 % (41.0-60); PLATELET COUNT 165 Th/cmm (150-400)
[2017-08-02 18:13] LABS: INR 1.1 (0.5-1.4); PROTHROMBIN TIME (TEST) 11.5 SECONDS (9.5-11.5)
[2017-08-02 18:15] LABS: ALB/GLOB RATIO 1.4 (1.0-1.8); ALBUMIN 3.2 gm/dL (4.2-5.5); ALKALINE PHOSPHATASE 84 U/L (34-104); ANION GAP 11.7 (7.0-16.0); BILIRUBIN,TOTAL 0.6 mg/dL (0.3-1.0); BUN - UREA NITROGEN 26 mg/dL (7-25); CHLORIDE 102 mEq/L (98-107); CREATININE - SERUM 2.9 mg/dL (0.7-1.3); GLUCOSE 187 mg/dL (70-105); POTASSIUM SERUM 3.7 mEq/L (3.5-5.1); SGOT 12 U/L (13-39); SGPT/ALT 7 U/L (7-52); SODIUM SERUM 140 mEq/L (136-145); TOTAL PROTEIN,SERUM 5.5 gm/dL (6.0-8.3)
[2017-08-02] MEDS: INSULIN ASPART SLIDING SCALE 100 UNITS/ML UNIT SUBQ SCH (19:09)
[2017-08-02] MEDS: Albuterol Nebulizer 2.5mg/3mL HHN SCH (20:15)
[2017-08-02 21:51] LABS: A1C % 7.6 % (4.0-6.0)
[2017-08-02] MEDS: cefTRIAXone 1 GM in Sodium Chloride 0.9% 50 ML IV SCH (22:30)
[2017-08-03] MEDS: INSULIN ASPART SLIDING SCALE 100 UNITS/ML UNIT SUBQ SCH ×5 (00:43→23:15)
[2017-08-03] MEDS: Albuterol Nebulizer 2.5mg/3mL HHN SCH ×4 (01:02→19:06)
[2017-08-03 06:47] LABS: % BASOPHILS 0.1 % (0.0-2.0); % EOSINOPHILS 3.5 % (0.0-5.0); % MONOCYTES 6.2 % (2.0-10.0); % NEUTROPHILS 69.2 % (40.0-80.0); EOSINOPHILE ABSOLUTE 0.2 Th/cmm (0.1-0.4); HEMATOCRIT 31.8 % (41.0-60); HEMOGLOBIN 10.2 gm/dL (12-16); LYMPHOCYTE ABSOLUTE 1.3 Th/cmm (1.5-3.0); MEAN CELL VOLUME 98.3 fl (80-99); MEAN CORPUSCULAR HEMOGLOBIN 31.4 pg (27.0-31.0); MEAN PLATELET VOLUME 6.9 fl; MONOCYTE ABSOLUTE 0.4 Th/cmm (0.3-1.0); NEUTROPHILE ABSOLUTE 4.3 Th/cmm (1.8-8.0); PLATELET COUNT 148 Th/cmm (150-400); RED BLOOD COUNT 3.24 Mil/cmm (3.80-5.80); RED CELL DISTRIBUTION WIDTH 17.1 % (11.5-20.0); WHITE BLOOD COUNT 6.2 Th/cmm (4.8-10.8)
[2017-08-03 07:10] LABS: INR 1.16 (0.5-1.4); PROTHROMBIN TIME (TEST) 12.2 SECONDS (9.5-11.5)
[2017-08-03] MEDS ORDERED: Levothyroxine 0.1 Mg Tab GT SCH (07:30)
[2017-08-03 07:38] LABS: ALB/GLOB RATIO 1.4 (1.0-1.8); ALBUMIN 2.9 gm/dL (4.2-5.5); ALKALINE PHOSPHATASE 72 U/L (34-104); BILIRUBIN,TOTAL 1.1 mg/dL (0.3-1.0); BUN - UREA NITROGEN 33 mg/dL (7-25); CALCIUM SERUM 8.9 mg/dL (8.6-10.3); CARBON DIOXIDE 28.4 mEq/L (21.0-31.0); CHLORIDE 104 mEq/L (98-107); GLUCOSE 117 mg/dL (70-105); POTASSIUM SERUM 3.4 mEq/L (3.5-5.1); SGOT 9 U/L (13-39); SGPT/ALT 6 U/L (7-52); SODIUM SERUM 143 mEq/L (136-145)
--- NOTE | 2017-08-03 08:02 | Diagnostic Imaging Report ---
Exam: Portable chest x-ray HISTORY: Preop. Findings: Portable summation of chest at 1810 hours reviewed. The study demonstrates a multiple metallic sutures status post restaurant thoracotomy. Right subclavian catheter terminating superior vena cava. There is a slight increase in density in left base of mild infiltrate cannot be excluded clinical correlation or lateral examination of chest might be helpful. IMPRESSION: Increased density left base, questioned infiltrates.
--- NOTE | 2017-08-03 08:04 | Consultation ---
DATE OF CONSULTATION: 08/03/2017 REFERRING PHYSICIAN: Dr. Valenzuela. REASON FOR CONSULTATION: Gangrene, right second toe. Thank you for referring this patient to me. HISTORY OF PRESENT ILLNESS: This is an 82-year-old male with known history of peripheral vascular disease, status post left above knee amputation as well as right big toe amputation from about 5 months ago. PAST MEDICAL HISTORY: He has diabetes, end-stage renal disease, on hemodialysis, CHF, hypertension, gout. LABORATORY STUDIES: On this admission shows CBC to be essentially normal. BUN slightly elevated at 26 with creatinine of 2.9, potassium is 3.7. Liver function tests essentially normal. PHYSICAL EXAMINATION: GENERAL: The patient is asleep. Daughter is at bedside. There is gangrene of the right second toe. Scars from previous donor site for coronary bypass graft in the right leg and a well-healed left [id number] amputation stump. PLAN: As discussed with the attending physician, amputation of the right second toe will be done. Hopefully, circulation to stump will result in healing JOB# [id number] MTDInder
[2017-08-03] MEDS: Lactobacillus Rhamnosus GG 15 Billion CFU CAP.SPRINK PO SCH (09:57)
[2017-08-03] MEDS ORDERED: Probiotic Screen MC PRN (11:00)
[2017-08-03] MEDS ORDERED: Midazolam 1mg/ml 2 ml vial IV ONE (11:21)
[2017-08-03] MEDS: cefTRIAXone 1 GM in Sodium Chloride 0.9% 50 ML IV SCH (17:11)
--- NOTE | 2017-08-03 17:17 | Operative Report ---
DATE OF SURGERY: 08/03/2017 PREOPERATIVE DIAGNOSES: 1. Gangrene, right second toe. 2. Diabetes mellitus. 3. Peripheral vascular disease. POSTOPERATIVE DIAGNOSES: 1. Gangrene, right second toe. 2. Diabetes mellitus. 3. Peripheral vascular disease. OPERATION DONE: Disarticulation of the second toe at the MP joint. SURGEON: Laura Melgoza MD ANESTHESIA: MAC. ANESTHESIOLOGIST: Dr. Rudolph ESTIMATED BLOOD LOSS: 1 mL. INDICATIONS FOR SURGERY: Two month history of increasing gangrene of the right second toe. OPERATIVE FINDINGS: The toe was infected with purulent material outside of amputation. Cultures were taken. Because of this, the stump was not closed and left open for further treatment. DESCRIPTION OF PROCEDURE: The patient was given IV sedation. The right foot was prepped with Betadine and draped in appropriate manner. 1% lidocaine was infiltrated around the area of the base of the second toe. An incision was made anterior and posteriorly and thick purulent material poured out of the incision. Cultures were taken. The toe was disarticulated at the MP joint. The wound was reprepped with Betadine and packed with Xeroform gauze. JOB# [id number]
--- NOTE | 2017-08-03 18:36 | General Progress Note ---
Subjective - Review of Systems Service Date: 08/03/17 Subjective: I am fine. Objective - Results Result Diagrams: 08/03/17 06:36 08/03/17 06:36 Recent Labs: Laboratory Last Values WBC 6.2 Th/cmm (4.8-10.8) 08/03/17 06:36 RBC 3.24 Mil/cmm (3.80-5.80) L 08/03/17 06:36 Hgb 10.2 gm/dL (12-16) L 08/03/17 06:36 Hct 31.8 % (41.0-60) L 08/03/17 06:36 MCV 98.3 fl (80-99) 08/03/17 06:36 MCH 31.4 pg (27.0-31.0) H 08/03/17 06:36 MCHC Differential 32.0 pg (28.0-36.0) 08/03/17 06:36 RDW 17.1 % (11.5-20.0) 08/03/17 06:36 Plt Count 148 Th/cmm (150-400) L 08/03/17 06:36 MPV 6.9 fl 08/03/17 06:36 Neutrophils % 69.2 % (40.0-80.0) 08/03/17 06:36 Lymphocytes % 21.0 % (20.0-50.0) 08/03/17 06:36 Monocytes % 6.2 % (2.0-10.0) 08/03/17 06:36 Eosinophils % 3.5 % (0.0-5.0) 08/03/17 06:36 Basophils % 0.1 % (0.0-2.0) 08/03/17 06:36 PT 12.2 SECONDS (9.5-11.5) H 08/03/17 06:36 INR 1.16 (0.5-1.4) 08/03/17 06:36 PTT (Actin FS) 36.8 SECONDS (26.0-38.0) 08/03/17 06:36 Sodium 143 mEq/L (136-145) 08/03/17 06:36 Potassium 3.4 mEq/L (3.5-5.1) L 08/03/17 06:36 Chloride 104 mEq/L (98-107) 08/03/17 06:36 Carbon Dioxide 28.4 mEq/L (21.0-31.0) 08/03/17 06:36 Anion Gap 14.0 (7.0-16.0) 08/03/17 06:36 BUN 33 mg/dL (7-25) H 08/03/17 06:36 Creatinine 4.0 mg/dL (0.7-1.3) H 08/03/17 06:36 Est GFR ( Amer) TNP 08/03/17 06:36 Est GFR (Non-Af Amer) TNP 08/03/17 06:36 BUN/Creatinine Ratio 8.3 08/03/17 06:36 Glucose 117 mg/dL (70-105) H 08/03/17 06:36 POC Glucose 198 MG/DL (70 - 105) H 08/03/17 17:07 Hemoglobin A1c % 7.6 % (4.0-6.0) H 08/02/17 17:50 Calcium 8.9 mg/dL (8.6-10.3) 08/03/17 06:36 Total Bilirubin 1.1 mg/dL (0.3-1.0) H 08/03/17 06:36 AST 9 U/L (13-39) L 08/03/17 06:36 ALT 6 U/L (7-52) L 08/03/17 06:36 Alkaline Phosphatase 72 U/L (34-104) 08/03/17 06:36 Total Protein 5.0 gm/dL (6.0-8.3) L 08/03/17 06:36 Albumin 2.9 gm/dL (4.2-5.5) L 08/03/17 06:36 Globulin 2.1 gm/dL 08/03/17 06:36 Albumin/Globulin Ratio 1.4 (1.0-1.8) 08/03/17 06:36 TSH 0.11 uIU/ml (0.34-5.60) L 08/03/17 06:36 - Physical Exam Vitals and I&O: Vital Signs Temp 98.9 F 08/03/17 16:00 Pulse 98 08/03/17 16:00 Resp 19 08/03/17 16:00 BP 155/72 08/03/17 16:00 Pulse Ox 100 08/03/17 16:00 Intake & Output 08/02/17 08/03/17 08/03/17 18:59 06:59 18:59 Intake Total 50 550 Balance 50 550 Weight (lbs) 67.132 kg 67.132 kg Intake: Intake, IV Amount 50 50 cefTRIAXone 1 gm In 50 50 Sodium Chloride 0.9% 50 ml @ 100 mls/hr IV Q24HR [facility] Rx#:[id number] Oral 500 Other: # Voids 1 # Bowel Movements 0 Stool Characteristics Soft Soft Soft Formed Formed Formed Brown Brown Brown Active Medications: Current Medications Acetaminophen (Tylenol) 650 mg PO Q6H PRN PRN Reason: Pain or Fever >101 Stop: 10/01/17 17:56 Albuterol Sulfate (Albuterol 2.5mg/3ml Neb Ud) 2.5 mg HHN Q6HRT SUSAN Stop: 10/01/17 18:59 Last Admin: 08/03/17 13:39 Dose: 2.5 mg Chlorpromazine (Thorazine) 25 mg PO Q8HR PRN; Protocol PRN Reason: Hiccups Stop: 10/01/17 17:59 Famotidine (Pepcid) 20 mg GT DAILY SUSAN Stop: 10/02/17 08:59 Last Admin: 08/03/17 09:57 Dose: Not Given Hydromorphone HCl (Dilaudid) 1 mg IVP Q4HR PRN PRN Reason: Pain (Severe) Stop: 10/01/17 17:52 Ceftriaxone Sodium 1 gm/ (Sodium Chloride) 50 mls @ 100 mls/hr IV Q24HR SUSAN Stop: 10/01/17 17:59 Last Infusion: 08/03/17 17:41 Dose: Infused Albumin Human (Albuminar 25%) 25 gm in 100 mls @ 50 mls/hr IV X1 ONE Stop: 08/04/17 01:59 Insulin Aspart (Novolog Insulin Sliding Scale) 0 units SUBQ Q6HR SUSAN PRN Reason: Protocol Stop: 10/01/17 17:59 Last Admin: 08/03/17 17:11 Dose: 2 units Lactobacillus Rhamnosus (Culturelle 15b) 1 each PO DAILY SUSAN Stop: 10/02/17 08:59 Last Admin: 08/03/17 09:57 Dose: Not Given Lactobacillus Rhamnosus (Culturelle 15b) 1 each PO DAILY [facility] Stop: 10/03/17 08:59 Levothyroxine Sodium (Synthroid) 0.15 mg GT QDAC SUSAN Stop: 10/02/17 14:20 Miscellaneous (Probiotic Screen) 1 ea MC PRN PRN PRN Reason: PROTOCOL Stop: 10/02/17 10:59 Ondansetron HCl (Zofran) 4 mg IV Q6H PRN PRN Reason: Nausea / Vomiting Stop: 10/01/17 17:55 General: Alert, Oriented x3, Cooperative, No acute distress HEENT: Atraumatic Neck: Supple Cardiovascular: Regular rate Lungs: Clear to auscultation Abdomen: Bowel sounds, Soft Extremities: Other (BK Amputation of lrft leg, right foot cover with winnie) Neurological: Other (ambulatory) Skin: Other (Warm and dry) - Procedures Procedures: Procedures Procedure Code Date AMPUTATION OF LOWER LEG 79653 03/20/17 AMPUTATION OF TOE 90042 03/20/17 CATARAC PHACOEMULS/ASPIR 13.41 02/11/10 CATARACT SURG W/IOL 1 STAGE 11889 02/11/10 CHANGE FEEDING DEVICE IN UP INTEST TRACT, TINWARE LITHOGRAPH PRESS OPERATOR APPROACH [id number] 03/20/17 CHANGE GASTROSTOMY TUBE 23838 03/20/17 DETACHMENT AT LEFT LOWER LEG, HIGH, OPEN APPROACH [id number] 03/20/17 DETACHMENT AT RIGHT 1ST TOE, COMPLETE, OPEN APPROACH [id number] 03/20/17 INSERT LENS AT CATAR EXT 13.71 02/11/10 PERFORMANCE OF URINARY FILTRATION, MULTIPLE [id number] 03/20/17 Assessment/Plan - Assessment Assessment: Patient is awake, alert, calm, in no acute distress. Dx: Gangren of second right toe S/P toe amputation, ERSD on HD, PVD, CHF, DM, HTN, Gout, S/P BK amputation of left leg, S/P amputation of right big toe. - Plan Plan: NS lock, Ceftriaxone 1 gr IV daily, Pain management, Continue with home meds, Insulin Sliding scale. Amputation was done. Patient follow by Surgeon and Nerphrology. HD will be done tomorrow. Will continue to monitor. Nutritional Asmnt/Malnutr-PDOC - Dietary Evaluation Malnutrition Findings (Please click <Entered> for more info): Nutritional Asmnt/Malnutrition Start: 08/03/17 17: 46 Text: Status: Complete Freq: Document 08/03/17 17:46 [email or web address] (Rec: 08/03/17 17:58 LCHENG [email or web address]) Nutritional Asmnt/Malnutrition Patient General Information Nutritional Screening High Risk Consult Diagnosis gangrene right foot Pertinent Medical Hx/Surgical Hx PVD, s/p BKA left, right big toe, CAD, CHF, HTN, Chronic renal failure, ESRD on HD, weakness Subjective Information Consult received for elevated BS. Pt having surgery for secomd toe amputation at time of visit, not able to visit pt . Current Diet Order/ Nutrition Support NPO Pertinent Medications novolog, culturelle, synthroid Pertinent Labs 08/03 Na 143, K 3.4, Cl 104, BUN 33, Cr 4.0, Glucose 117, POC 123-198, 08/02 A1c 7.6 Nutritional Hx/Data Height 1.63 m Height (Calculated Centimeters) 162.6 Current Weight (lbs) 67.132 kg Weight (Calculated Kilograms) 67.1 Weight (Calculated Grams) 78885.7 [place] Body Weight 120 % [place] Body Weight 123 Body Mass Index (BMI) 25.4 Weight Status Overweight GI Symptoms GI Symptoms None Last BM 0 Difficult in: None Skin Integrity/Comment: SCARS IN MULTIPLE BODY PARTS ulceration to right second toe Estimated Nutritional Goals BEE in Kcals: Using Current wt Calories/Kcals/Kg 25-30 Kcals Calculated 7468-9111 Protein: Using Current wt Protein g/k-1.2 Protein Calculated 61-73 Fluid: ml 1675-1830ml (1ml/kcal) Nutritional Problem 2. Problem Problem increased nutrition needs ( calorie and protein) Etiology increased metabolic demand for wound healing Signs/Symptoms: ulceration and s/p amputation 1. Problem Problem altered nutrition realted lab values Etiology hx of DM Signs/Symptoms: Glucose 117, POC 123-198, A1c 7.6 Malnutrition Alert Protein-Calorie Malnutrition N/A Is there a minimum of two criteria No selected? Query Text:Check all the applicable criteria. A minimum of two criteria are recommended for diagnosis of either severe or non-severe malnutrition. Intervention/Recommendation Comments 1. Advance diet as tolerated. Recommend CCHO-60gm diet. 2. Monitor PO intake, wt, labs and skin integrity 3. F/U as moderate risk in 3-5 days, PO check 08/04 Expected Outcomes/Goals Expected Outcomes/Goals 1. PO intake to meet at least 75% of nutritional needs. 2. Wt stability, skin to remain intact, labs to approach WNL.
[2017-08-04] MEDS: HYDROmorphone 1 mg/mL 1mL Syr IVP PRN (00:15)
[2017-08-04] MEDS: Albuterol Nebulizer 2.5mg/3mL HHN SCH ×4 (00:51→19:38)
--- NOTE | 2017-08-04 01:24 | Consultation ---
DATE OF CONSULTATION: 08/03/2017 ART DEALER: Aldo Grady M.D. REASON FOR CONSULTATION: Electrolyte imbalance and fluid management. HISTORY OF PRESENT ILLNESS: This is an 82-year-old male with past medical history of end-stage renal disease on hemodialysis, who came in because of gangrenous, necrotic right second digit. Three weeks prior to admission, his right second digit started to develop erythema, edema, and also tenderness to touch. He was initiated on antibiotics, but had a very poor response. Few hours prior to admission, his right second digit progressed to a gangrenous necrotic state. This was associated again with worsening tenderness. Thus, he was brought to [facility] for possible amputation. He had no history of fever and chills. PAST MEDICAL HISTORY: 1. End-stage renal disease, on hemodialysis. 2. Essential hypertension. 3. Type 2 diabetes mellitus. 4. Coronary artery disease. 5. History of congestive heart failure. 6. Severe peripheral arterial disease. 7. History of gout. 8. Hypothyroidism. 9. Dyslipidemia. PAST SURGICAL HISTORY: 1. Status post left BKA. 2. Status post amputation of right first digit. MEDICATIONS: Acetaminophen, albuterol, aspirin, ceftriaxone, chlorpromazine, famotidine, potassium, lactobacillus, levothyroxine, ondansetron. ALLERGIES: No known drug allergies. SOCIAL HISTORY: No history of alcohol or tobacco use. FAMILY HISTORY: Noncontributory to present illness. REVIEW OF SYSTEMS: CONSTITUTIONAL: Still with periods of weakness, appetite has been fair, no fever and chills. HEENT: No mention of headaches, nor dizziness. CARDIORESPIRATORY: He has a history of coronary artery disease, CHF, hypertension. However, he denied any chest pain, palpitations, diaphoresis, cough. No shortness of breath. GASTROINTESTINAL: No nausea and vomiting, abdominal pain or cramping, hematemesis, melena, hematochezia, nor diarrhea. ENDOCRINE: He has a history of diabetes as well as thyroid abnormalities and dyslipidemia. MUSCULOSKELETAL: Multiple joint arthralgias. GENITOURINARY: The patient has history of kidney failure on hemodialysis. No dysuria, no hematuria. HEMATOLOGIC: History of anemia of chronic kidney disease. MUSCULOSKELETAL: Has multiple joint arthralgias. NEUROPSYCH: No syncopal episode nor seizure activity. He has some form of neuropathy. PHYSICAL EXAMINATION: GENERAL: The patient is awake, some discomfort due to right second toe pain. VITAL SIGNS: Blood pressure is 154/71, pulse 97, temperature 98.3 degrees. SKIN: Good turgor, warm, no rash, no jaundice appreciated. HEENT: Head: Normocephalic, atraumatic. EYES: Extraocular muscles intact. Pupils equal, round, reactive to light and accommodates. Anicteric sclerae. Pale conjunctivae. Nose, midline nasal septum. Mouth, moist mucosa, adequate dentition. NECK: Supple, no adenopathy, no thyromegaly, no bruits. Trachea palpated in the midline. CHEST AND CVS: S1, S2. No rub, murmur, no gallop appreciated. Point of maximal impulse, fifth intercostal space, left midclavicular line. No abdominal or femoral bruits appreciated. LUNGS: Equal expansion, no use of accessory muscles. No supraclavicular retractions. Decreased breath sounds, clear to auscultation without any wheeze. ABDOMEN: Globular, soft. Positive for bowel sounds, presence of midline surgical scar, no bruits either diastolic or systolic. RECTAL: The patient refused. GENITOURINARY: The patient also refused. MUSCULOSKELETAL: No effusions present in his joints with adequate range of motion. EXTREMITIES: He has a left BKA with well-healed scar, he has a longitudinal right leg scar, and he has dressing of his right foot. Dressing of right foot is intact without any bleeding or drainage. NEUROLOGIC: The patient is alert, verbal, motor is 5/5. Cranial nerves 2-12 intact. Sensory intact. LABORATORY DATA: White count 6.2, hemoglobin 10.2, hematocrit 31.8, platelets 148, polys 69.2%. Sodium 143, potassium 3.4, chloride 104, bicarbonate 28, BUN 33, creatinine is 4, glucose 117, albumin is 2.9. TSH is 0.11. IMPRESSION: 1. End-stage renal disease, on hemodialysis. 2. Gangrenous necrotic right second digit. 3. Essential hypertension with chronic kidney disease. 4. Type 2 diabetes mellitus with chronic kidney disease. 5. Coronary artery disease. 6. History of congestive heart failure. 7. Severe peripheral arterial disease, status post left below-knee amputation in right second digit. 8. Gout. 9. Hypothyroidism. 10. Dyslipidemia. PLAN: 1. Hemodialysis as scheduled. 2. Continue wound care and dressings. 3. Maintain antibiotics. 4. Adjust Synthroid. JOB# [id number]
[2017-08-04] MEDS: INSULIN ASPART SLIDING SCALE 100 UNITS/ML UNIT SUBQ SCH ×3 (05:12→18:01)
[2017-08-04 05:40] LABS: % BASOPHILS 0.3 % (0.0-2.0); % LYMPHOCYTES 15.9 % (20.0-50.0); % MONOCYTES 7.9 % (2.0-10.0); % NEUTROPHILS 72.9 % (40.0-80.0); EOSINOPHILE ABSOLUTE 0.2 Th/cmm (0.1-0.4); HEMOGLOBIN 9.1 gm/dL (12-16); LYMPHOCYTE ABSOLUTE 1.2 Th/cmm (1.5-3.0); MEAN CELL VOLUME 97.3 fl (80-99); MEAN CORPUSCULAR HEMOGLOBIN 32.7 pg (27.0-31.0); MEAN CORPUSCULAR HGB CONC 33.7 pg (28.0-36.0); MEAN PLATELET VOLUME 7.3 fl; MONOCYTE ABSOLUTE 0.6 Th/cmm (0.3-1.0); NEUTROPHILE ABSOLUTE 5.6 Th/cmm (1.8-8.0); PLATELET COUNT 159 Th/cmm (150-400); RED BLOOD COUNT 2.79 Mil/cmm (3.80-5.80); RED CELL DISTRIBUTION WIDTH 16.7 % (11.5-20.0)
[2017-08-04 05:57] LABS: HEMATOCRIT 27.1 % (41.0-60); WHITE BLOOD COUNT 7.6 Th/cmm (4.8-10.8)
[2017-08-04 06:00] LABS: ALB/GLOB RATIO 1.3 (1.0-1.8); ALBUMIN 2.8 gm/dL (4.2-5.5); ALKALINE PHOSPHATASE 68 U/L (34-104); BILIRUBIN,TOTAL 0.5 mg/dL (0.3-1.0); BUN - UREA NITROGEN 44 mg/dL (7-25); CALCIUM SERUM 8.4 mg/dL (8.6-10.3); CARBON DIOXIDE 26.9 mEq/L (21.0-31.0); CHLORIDE 100 mEq/L (98-107); POTASSIUM SERUM 3.9 mEq/L (3.5-5.1); SGOT 11 U/L (13-39); SGPT/ALT 6 U/L (7-52); SODIUM SERUM 135 mEq/L (136-145); TOTAL PROTEIN,SERUM 4.9 gm/dL (6.0-8.3)
[2017-08-04 06:06] LABS: CREATININE - SERUM 4.7 mg/dL (0.7-1.3)
[2017-08-04 07:16] LABS: GLUCOSE 229 mg/dL (70-105)
--- NOTE | 2017-08-04 08:37 | Diagnostic Imaging Report ---
Portable chest x-ray HISTORY: Shortness of breath Compared with the prior exam of August 02, 2017, increasing density consistent with a pleural effusion is noted in the left lower hemithorax. Underlying pneumonia and/or atelectasis cannot be excluded. The heart is enlarged. There is a degree of pulmonary vascular redistribution consistent with underlying congestive heart failure. IMPRESSION: 1. Increasing density within the left lower hemithorax consistent with a pleural effusion. Underlying infiltrate and/or atelectasis cannot be excluded. 2. Cardiomegaly along with changes consistent with a degree of congestive heart failure.
--- NOTE | 2017-08-04 08:59 | General Progress Note ---
Subjective - Review of Systems Service Date: 08/04/17 Subjective: I am fine. Objective - Results Result Diagrams: 08/04/17 05:20 08/04/17 05:20 Recent Labs: Laboratory Last Values WBC 7.6 Th/cmm (4.8-10.8) D 08/04/17 05:20 RBC 2.79 Mil/cmm (3.80-5.80) L 08/04/17 05:20 Hgb 9.1 gm/dL (12-16) L 08/04/17 05:20 Hct 27.1 % (41.0-60) L D 08/04/17 05:20 MCV 97.3 fl (80-99) 08/04/17 05:20 MCH 32.7 pg (27.0-31.0) H 08/04/17 05:20 MCHC Differential 33.7 pg (28.0-36.0) 08/04/17 05:20 RDW 16.7 % (11.5-20.0) 08/04/17 05:20 Plt Count 159 Th/cmm (150-400) 08/04/17 05:20 MPV 7.3 fl 08/04/17 05:20 Neutrophils % 72.9 % (40.0-80.0) 08/04/17 05:20 Lymphocytes % 15.9 % (20.0-50.0) L 08/04/17 05:20 Monocytes % 7.9 % (2.0-10.0) 08/04/17 05:20 Eosinophils % 3.0 % (0.0-5.0) 08/04/17 05:20 Basophils % 0.3 % (0.0-2.0) 08/04/17 05:20 PT 12.2 SECONDS (9.5-11.5) H 08/03/17 06:36 INR 1.16 (0.5-1.4) 08/03/17 06:36 PTT (Actin FS) 36.8 SECONDS (26.0-38.0) 08/03/17 06:36 Sodium 135 mEq/L (136-145) L 08/04/17 05:20 Potassium 3.9 mEq/L (3.5-5.1) 08/04/17 05:20 Chloride 100 mEq/L (98-107) 08/04/17 05:20 Carbon Dioxide 26.9 mEq/L (21.0-31.0) 08/04/17 05:20 Anion Gap 12.0 (7.0-16.0) 08/04/17 05:20 BUN 44 mg/dL (7-25) H 08/04/17 05:20 Creatinine 4.7 mg/dL (0.7-1.3) H* 08/04/17 05:20 Est GFR ( Amer) TNP 08/04/17 05:20 Est GFR (Non-Af Amer) TNP 08/04/17 05:20 BUN/Creatinine Ratio 9.4 08/04/17 05:20 Glucose 229 mg/dL (70-105) H D 08/04/17 05:20 POC Glucose 197 MG/DL (70 - 105) H 08/04/17 04:30 Hemoglobin A1c % 7.6 % (4.0-6.0) H 08/02/17 17:50 Calcium 8.4 mg/dL (8.6-10.3) L 08/04/17 05:20 Total Bilirubin 0.5 mg/dL (0.3-1.0) 08/04/17 05:20 AST 11 U/L (13-39) L 08/04/17 05:20 ALT 6 U/L (7-52) L 08/04/17 05:20 Alkaline Phosphatase 68 U/L (34-104) 08/04/17 05:20 Total Protein 4.9 gm/dL (6.0-8.3) L 08/04/17 05:20 Albumin 2.8 gm/dL (4.2-5.5) L 08/04/17 05:20 Globulin 2.1 gm/dL 08/04/17 05:20 Albumin/Globulin Ratio 1.3 (1.0-1.8) 08/04/17 05:20 TSH 0.11 uIU/ml (0.34-5.60) L 08/03/17 06:36 - Physical Exam Vitals and I&O: Vital Signs Temp 99.3 F 08/04/17 04:00 Pulse 102 08/04/17 07:42 Resp 18 08/04/17 07:42 BP 139/67 08/04/17 04:00 Pulse Ox 98 08/04/17 07:42 Intake & Output 08/03/17 08/04/17 08/04/17 18:59 06:59 18:59 Intake Total 550 Balance 550 Weight (lbs) 67.132 kg 67.132 kg Intake: Intake, IV Amount 50 cefTRIAXone 1 gm In 50 Sodium Chloride 0.9% 50 ml @ 100 mls/hr IV Q24HR [facility] Rx#:[id number] Oral 500 Other: # Voids 1 # Bowel Movements 0 Stool Characteristics Soft Formed Brown Active Medications: Current Medications Acetaminophen (Tylenol) 650 mg PO Q6H PRN PRN Reason: Pain or Fever >101 Stop: 10/01/17 17:56 Albuterol Sulfate (Albuterol 2.5mg/3ml Neb Ud) 2.5 mg HHN Q6HRT SUSAN Stop: 10/01/17 18:59 Last Admin: 08/04/17 07:42 Dose: 2.5 mg Chlorpromazine (Thorazine) 25 mg PO Q8HR PRN; Protocol PRN Reason: Hiccups Stop: 10/01/17 17:59 Famotidine (Pepcid) 20 mg GT DAILY [facility] Stop: 10/02/17 08:59 Last Admin: 08/03/17 09:57 Dose: Not Given Hydromorphone HCl (Dilaudid) 1 mg IVP Q4HR PRN PRN Reason: Pain (Severe) Stop: 10/01/17 17:52 Last Admin: 08/04/17 00:15 Dose: 1 mg Ceftriaxone Sodium 1 gm/ (Sodium Chloride) 50 mls @ 100 mls/hr IV Q24HR [facility]USAN Stop: 10/01/17 17:59 Last Infusion: 08/03/17 17:41 Dose: Infused Insulin Aspart (Novolog Insulin Sliding Scale) 0 units SUBQ Q6HR SUSAN PRN Reason: Protocol Stop: 10/01/17 17:59 Last Admin: 08/04/17 05:12 Dose: 2 units Lactobacillus Rhamnosus (Culturelle 15b) 1 each PO DAILY SUSAN Stop: 10/02/17 08:59 Last Admin: 08/03/17 09:57 Dose: Not Given Lactobacillus Rhamnosus (Culturelle 15b) 1 each PO DAILY [facility] Stop: 10/03/17 08:59 Levothyroxine Sodium (Synthroid) 0.15 mg GT QDAC [facility] Stop: 10/02/17 14:20 Miscellaneous (Probiotic Screen) 1 ea MC PRN PRN PRN Reason: PROTOCOL Stop: 10/02/17 10:59 Ondansetron HCl (Zofran) 4 mg IV Q6H PRN PRN Reason: Nausea / Vomiting Stop: 10/01/17 17:55 General: Alert, Oriented x3, Cooperative, No acute distress HEENT: Atraumatic Neck: Supple Cardiovascular: Regular rate Lungs: Other (Rude respiration, some secreations) Abdomen: Bowel sounds, Soft Extremities: Other (BK Amputation of lrft leg, right foot cover with winnie) Neurological: Other (ambulatory) Skin: Other (Warm and dry) - Procedures Procedures: Procedures Procedure Code Date AMPUTATION OF LOWER LEG 92095 03/20/17 AMPUTATION OF TOE 10728 03/20/17 CATARAC PHACOEMULS/ASPIR 13.41 02/11/10 CATARACT SURG W/IOL 1 STAGE 73531 02/11/10 CHANGE FEEDING DEVICE IN UP INTEST TRACT, MANAGER MULTICULTURAL APPROACH [id number] 03/20/17 CHANGE GASTROSTOMY TUBE 40001 03/20/17 DETACHMENT AT LEFT LOWER LEG, HIGH, OPEN APPROACH [id number] 03/20/17 DETACHMENT AT RIGHT 1ST TOE, COMPLETE, OPEN APPROACH [id number] 03/20/17 INSERT LENS AT CATAR EXT 13.71 02/11/10 PERFORMANCE OF URINARY FILTRATION, MULTIPLE [id number] 03/20/17 Assessment/Plan - Assessment Assessment: Patient is awake, alert, calm, in no acute distress. He had some fever and CXR shows left pleural effusion. Dx: Gangren of second right toe S/P toe amputation , ERSD on HD, PVD, CHF, DM, HTN, Gout, S/P BK amputation of left leg, S/P amputation of right big toe. - Plan Plan: NS lock, Ceftriaxone 1 gr IV daily, Pain management, Continue with home meds, Insulin Sliding scale. Amputation was done. Patient follow by Surgeon and Nerphrology. HD will be done today. Will continue to monitor. Nutritional Asmnt/Malnutr-PDOC - Dietary Evaluation Malnutrition Findings (Please click <Entered> for more info): Nutritional Asmnt/Malnutrition Start: 08/03/17 17: 46 Text: Status: Complete Freq: Document 08/03/17 17:46 LCCHAPOG (Rec: 08/03/17 17:58 LCHENG [email or web address]) Nutritional Asmnt/Malnutrition Patient General Information Nutritional Screening High Risk Consult Diagnosis gangrene right foot Pertinent Medical Hx/Surgical Hx PVD, s/p BKA left, right big toe, CAD, CHF, HTN, Chronic renal failure, ESRD on HD, weakness Subjective Information Consult received for elevated BS. Pt having surgery for secomd toe amputation at time of visit, not able to visit pt . Current Diet Order/ Nutrition Support NPO Pertinent Medications novolog, culturelle, synthroid Pertinent Labs 08/03 Na 143, K 3.4, Cl 104, BUN 33, Cr 4.0, Glucose 117, POC 123-198, 08/02 A1c 7.6 Nutritional Hx/Data Height 1.63 m Height (Calculated Centimeters) 162.6 Current Weight (lbs) 67.132 kg Weight (Calculated Kilograms) 67.1 Weight (Calculated Grams) 49257.7 [place] Body Weight 120 % [place] Body Weight 123 Body Mass Index (BMI) 25.4 Weight Status Overweight GI Symptoms GI Symptoms None Last BM 0 Difficult in: None Skin Integrity/Comment: SCARS IN MULTIPLE BODY PARTS ulceration to right second toe Estimated Nutritional Goals BEE in Kcals: Using Current wt Calories/Kcals/Kg 25-30 Kcals Calculated 6461-5802 Protein: Using Current wt Protein g/k-1.2 Protein Calculated 61-73 Fluid: ml 1675-1830ml (1ml/kcal) Nutritional Problem 2. Problem Problem increased nutrition needs ( calorie and protein) Etiology increased metabolic demand for wound healing Signs/Symptoms: ulceration and s/p amputation 1. Problem Problem altered nutrition realted lab values Etiology hx of DM Signs/Symptoms: Glucose 117, POC 123-198, A1c 7.6 Malnutrition Alert Protein-Calorie Malnutrition N/A Is there a minimum of two criteria No selected? Query Text:Check all the applicable criteria. A minimum of two criteria are recommended for diagnosis of either severe or non-severe malnutrition. Intervention/Recommendation Comments 1. Advance diet as tolerated. Recommend CCHO-60gm diet. 2. Monitor PO intake, wt, labs and skin integrity 3. F/U as moderate risk in 3-5 days, PO check 08/04 Expected Outcomes/Goals Expected Outcomes/Goals 1. PO intake to meet at least 75% of nutritional needs. 2. Wt stability, skin to remain intact, labs to approach WNL.
[2017-08-04] MEDS: Levothyroxine 0.1 Mg Tab GT SCH (09:02)
[2017-08-04] MEDS: Lactobacillus Rhamnosus GG 15 Billion CFU CAP.SPRINK PO SCH ×2 (09:02→09:03)
[2017-08-04] MEDS ORDERED: Albumin 25% 25gm/100mL 25 GM/100 ML BTL IV ONE ×2 (11:38)
--- NOTE | 2017-08-04 14:17 | General Progress Note ---
Subjective - Review of Systems Service Date: 08/04/17 Events since last encounter: change dressings in AM Objective - Results Result Diagrams: 08/04/17 05:20 08/04/17 05:20 Recent Labs: Laboratory Last Values WBC 7.6 Th/cmm (4.8-10.8) D 08/04/17 05:20 RBC 2.79 Mil/cmm (3.80-5.80) L 08/04/17 05:20 Hgb 9.1 gm/dL (12-16) L 08/04/17 05:20 Hct 27.1 % (41.0-60) L D 08/04/17 05:20 MCV 97.3 fl (80-99) 08/04/17 05:20 MCH 32.7 pg (27.0-31.0) H 08/04/17 05:20 MCHC Differential 33.7 pg (28.0-36.0) 08/04/17 05:20 RDW 16.7 % (11.5-20.0) 08/04/17 05:20 Plt Count 159 Th/cmm (150-400) 08/04/17 05:20 MPV 7.3 fl 08/04/17 05:20 Neutrophils % 72.9 % (40.0-80.0) 08/04/17 05:20 Lymphocytes % 15.9 % (20.0-50.0) L 08/04/17 05:20 Monocytes % 7.9 % (2.0-10.0) 08/04/17 05:20 Eosinophils % 3.0 % (0.0-5.0) 08/04/17 05:20 Basophils % 0.3 % (0.0-2.0) 08/04/17 05:20 PT 12.2 SECONDS (9.5-11.5) H 08/03/17 06:36 INR 1.16 (0.5-1.4) 08/03/17 06:36 PTT (Actin FS) 36.8 SECONDS (26.0-38.0) 08/03/17 06:36 Sodium 135 mEq/L (136-145) L 08/04/17 05:20 Potassium 3.9 mEq/L (3.5-5.1) 08/04/17 05:20 Chloride 100 mEq/L (98-107) 08/04/17 05:20 Carbon Dioxide 26.9 mEq/L (21.0-31.0) 08/04/17 05:20 Anion Gap 12.0 (7.0-16.0) 08/04/17 05:20 BUN 44 mg/dL (7-25) H 08/04/17 05:20 Creatinine 4.7 mg/dL (0.7-1.3) H* 08/04/17 05:20 Est GFR ( Amer) TNP 08/04/17 05:20 Est GFR (Non-Af Amer) TNP 08/04/17 05:20 BUN/Creatinine Ratio 9.4 08/04/17 05:20 Glucose 229 mg/dL (70-105) H D 08/04/17 05:20 POC Glucose 179 MG/DL (70 - 105) H 08/04/17 11:34 Hemoglobin A1c % 7.6 % (4.0-6.0) H 08/02/17 17:50 Calcium 8.4 mg/dL (8.6-10.3) L 08/04/17 05:20 Total Bilirubin 0.5 mg/dL (0.3-1.0) 08/04/17 05:20 AST 11 U/L (13-39) L 08/04/17 05:20 ALT 6 U/L (7-52) L 08/04/17 05:20 Alkaline Phosphatase 68 U/L (34-104) 08/04/17 05:20 B-Natriuretic Peptide 1840.0 pg/mL (5.0-100.0) H 08/04/17 05:20 Total Protein 4.9 gm/dL (6.0-8.3) L 08/04/17 05:20 Albumin 2.8 gm/dL (4.2-5.5) L 08/04/17 05:20 Globulin 2.1 gm/dL 08/04/17 05:20 Albumin/Globulin Ratio 1.3 (1.0-1.8) 08/04/17 05:20 TSH 0.11 uIU/ml (0.34-5.60) L 08/03/17 06:36 - Physical Exam Vitals and I&O: Vital Signs Temp 99.3 F 08/04/17 04:00 Pulse 101 08/04/17 12:48 Resp 18 08/04/17 12:48 BP 139/67 08/04/17 04:00 Pulse Ox 98 08/04/17 12:48 Intake & Output 08/03/17 08/04/17 08/04/17 18:59 06:59 18:59 Intake Total 550 Balance 550 Weight (lbs) 67.132 kg 67.132 kg Intake: Intake, IV Amount 50 cefTRIAXone 1 gm In 50 Sodium Chloride 0.9% 50 ml @ 100 mls/hr IV Q24HR [facility] Rx#:[id number] Oral 500 Other: # Voids 1 # Bowel Movements 0 Stool Characteristics Soft Formed Brown Active Medications: Current Medications Acetaminophen (Tylenol) 650 mg PO Q6H PRN PRN Reason: Pain or Fever >101 Stop: 10/01/17 17:56 Albuterol Sulfate (Albuterol 2.5mg/3ml Neb Ud) 2.5 mg HHN Q6HRT [facility] Stop: 10/01/17 18:59 Last Admin: 08/04/17 12:48 Dose: 2.5 mg Chlorpromazine (Thorazine) 25 mg PO Q8HR PRN; Protocol PRN Reason: Hiccups Stop: 10/01/17 17:59 Famotidine (Pepcid) 20 mg GT DAILY [facility] Stop: 10/02/17 08:59 Last Admin: 08/04/17 09:02 Dose: 20 mg Hydromorphone HCl (Dilaudid) 1 mg IVP Q4HR PRN PRN Reason: Pain (Severe) Stop: 10/01/17 17:52 Last Admin: 08/04/17 00:15 Dose: 1 mg Ceftriaxone Sodium 1 gm/ (Sodium Chloride) 50 mls @ 100 mls/hr IV Q24HR [facility] Stop: 10/01/17 17:59 Last Infusion: 08/03/17 17:41 Dose: Infused Insulin Aspart (Novolog Insulin Sliding Scale) 0 units SUBQ Q6HR [facility]USAN PRN Reason: Protocol Stop: 10/01/17 17:59 Last Admin: 08/04/17 12:08 Dose: 2 units Lactobacillus Rhamnosus (Culturelle 15b) 1 each PO DAILY [facility] Stop: 10/02/17 08:59 Last Admin: 08/04/17 09:02 Dose: 1 each Lactobacillus Rhamnosus (Culturelle 15b) 1 each PO DAILY [facility] Stop: 10/03/17 08:59 Last Admin: 08/04/17 09:03 Dose: Not Given Levothyroxine Sodium (Synthroid) 0.15 mg GT QDAC [facility] Stop: 10/02/17 14:20 Last Admin: 08/04/17 09:02 Dose: 0.15 mg Miscellaneous (Probiotic Screen) 1 ea PRN PRN PRN Reason: PROTOCOL Stop: 10/02/17 10:59 Miscellaneous (Clinical Monitoring) 1 ea PRN PRN PRN Reason: RENAL Stop: 10/03/17 13:37 Ondansetron HCl (Zofran) 4 mg IV Q6H PRN PRN Reason: Nausea / Vomiting Stop: 10/01/17 17:55 General: Alert, Oriented x3, Cooperative, No acute distress HEENT: Atraumatic Neck: Supple Cardiovascular: Regular rate Lungs: Other (Rude respiration, some secreations) Abdomen: Bowel sounds, Soft Extremities: Other (BK Amputation of lrft leg, right foot cover with winnie) Neurological: Other (ambulatory) Skin: Other (Warm and dry) - Procedures Procedures: Procedures Procedure Code Date AMPUTATION OF LOWER LEG 30278 03/20/17 AMPUTATION OF TOE 14065 08/02/17 CATARAC PHACOEMULS/ASPIR 13.41 02/11/10 CATARACT SURG W/IOL 1 STAGE 18919 02/11/10 CHANGE FEEDING DEVICE IN UP INTEST TRACT, STOCK TRADER APPROACH [id number] 03/20/17 CHANGE GASTROSTOMY TUBE 99222 03/20/17 DETACHMENT AT LEFT LOWER LEG, HIGH, OPEN APPROACH [id number] 03/20/17 DETACHMENT AT RIGHT 1ST TOE, COMPLETE, OPEN APPROACH [id number] 03/20/17 DETACHMENT AT RIGHT 2ND TOE, MID, OPEN APPROACH [id number] 08/02/17 INSERT LENS AT CATAR EXT 13.71 02/11/10 PERFORMANCE OF URINARY FILTRATION, MULTIPLE [id number] 03/20/17 Nutritional Asmnt/Malnutr-PDOC - Dietary Evaluation Malnutrition Findings (Please click <Entered> for more info): Nutritional Asmnt/Malnutrition Start: 08/03/17 17: 46 Text: Status: Complete Freq: Document 08/03/17 17:46 TYLOR (Rec: 08/03/17 17:58 LCCARON [email or web address]) Nutritional Asmnt/Malnutrition Patient General Information Nutritional Screening High Risk Consult Diagnosis gangrene right foot Pertinent Medical Hx/Surgical Hx PVD, s/p BKA left, right big toe, CAD, CHF, HTN, Chronic renal failure, ESRD on HD, weakness Subjective Information Consult received for elevated BS. Pt having surgery for secomd toe amputation at time of visit, not able to visit pt . Current Diet Order/ Nutrition Support NPO Pertinent Medications novolog, culturelle, synthroid Pertinent Labs 08/03 Na 143, K 3.4, Cl 104, BUN 33, Cr 4.0, Glucose 117, POC 123-198, 08/02 A1c 7.6 Nutritional Hx/Data Height 1.63 m Height (Calculated Centimeters) 162.6 Current Weight (lbs) 67.132 kg Weight (Calculated Kilograms) 67.1 Weight (Calculated Grams) 23545.7 [place] Body Weight 120 % [place] Body Weight 123 Body Mass Index (BMI) 25.4 Weight Status Overweight GI Symptoms GI Symptoms None Last BM 0 Difficult in: None Skin Integrity/Comment: SCARS IN MULTIPLE BODY PARTS ulceration to right second toe Estimated Nutritional Goals BEE in Kcals: Using Current wt Calories/Kcals/Kg 25-30 Kcals Calculated 2881-6501 Protein: Using Current wt Protein g/k-1.2 Protein Calculated 61-73 Fluid: ml 1675-1830ml (1ml/kcal) Nutritional Problem 2. Problem Problem increased nutrition needs ( calorie and protein) Etiology increased metabolic demand for wound healing Signs/Symptoms: ulceration and s/p amputation 1. Problem Problem altered nutrition realted lab values Etiology hx of DM Signs/Symptoms: Glucose 117, POC 123-198, A1c 7.6 Malnutrition Alert Protein-Calorie Malnutrition N/A Is there a minimum of two criteria No selected? Query Text:Check all the applicable criteria. A minimum of two criteria are recommended for diagnosis of either severe or non-severe malnutrition. Intervention/Recommendation Comments 1. Advance diet as tolerated. Recommend CCHO-60gm diet. 2. Monitor PO intake, wt, labs and skin integrity 3. F/U as moderate risk in 3-5 days, PO check 08/04 Expected Outcomes/Goals Expected Outcomes/Goals 1. PO intake to meet at least 75% of nutritional needs. 2. Wt stability, skin to remain intact, labs to approach WNL.
--- NOTE | 2017-08-04 14:22 | General Progress Note ---
Subjective - Review of Systems Service Date: 08/04/17 Subjective: sleeping, comfortable Objective - Results Result Diagrams: 08/04/17 05:20 08/04/17 05:20 Recent Labs: Laboratory Last Values WBC 7.6 Th/cmm (4.8-10.8) D 08/04/17 05:20 RBC 2.79 Mil/cmm (3.80-5.80) L 08/04/17 05:20 Hgb 9.1 gm/dL (12-16) L 08/04/17 05:20 Hct 27.1 % (41.0-60) L D 08/04/17 05:20 MCV 97.3 fl (80-99) 08/04/17 05:20 MCH 32.7 pg (27.0-31.0) H 08/04/17 05:20 MCHC Differential 33.7 pg (28.0-36.0) 08/04/17 05:20 RDW 16.7 % (11.5-20.0) 08/04/17 05:20 Plt Count 159 Th/cmm (150-400) 08/04/17 05:20 MPV 7.3 fl 08/04/17 05:20 Neutrophils % 72.9 % (40.0-80.0) 08/04/17 05:20 Lymphocytes % 15.9 % (20.0-50.0) L 08/04/17 05:20 Monocytes % 7.9 % (2.0-10.0) 08/04/17 05:20 Eosinophils % 3.0 % (0.0-5.0) 08/04/17 05:20 Basophils % 0.3 % (0.0-2.0) 08/04/17 05:20 PT 12.2 SECONDS (9.5-11.5) H 08/03/17 06:36 INR 1.16 (0.5-1.4) 08/03/17 06:36 PTT (Actin FS) 36.8 SECONDS (26.0-38.0) 08/03/17 06:36 Sodium 135 mEq/L (136-145) L 08/04/17 05:20 Potassium 3.9 mEq/L (3.5-5.1) 08/04/17 05:20 Chloride 100 mEq/L (98-107) 08/04/17 05:20 Carbon Dioxide 26.9 mEq/L (21.0-31.0) 08/04/17 05:20 Anion Gap 12.0 (7.0-16.0) 08/04/17 05:20 BUN 44 mg/dL (7-25) H 08/04/17 05:20 Creatinine 4.7 mg/dL (0.7-1.3) H* 08/04/17 05:20 Est GFR ( Amer) TNP 08/04/17 05:20 Est GFR (Non-Af Amer) TNP 08/04/17 05:20 BUN/Creatinine Ratio 9.4 08/04/17 05:20 Glucose 229 mg/dL (70-105) H D 08/04/17 05:20 POC Glucose 179 MG/DL (70 - 105) H 08/04/17 11:34 Hemoglobin A1c % 7.6 % (4.0-6.0) H 08/02/17 17:50 Calcium 8.4 mg/dL (8.6-10.3) L 08/04/17 05:20 Total Bilirubin 0.5 mg/dL (0.3-1.0) 08/04/17 05:20 AST 11 U/L (13-39) L 08/04/17 05:20 ALT 6 U/L (7-52) L 08/04/17 05:20 Alkaline Phosphatase 68 U/L (34-104) 08/04/17 05:20 B-Natriuretic Peptide 1840.0 pg/mL (5.0-100.0) H 08/04/17 05:20 Total Protein 4.9 gm/dL (6.0-8.3) L 08/04/17 05:20 Albumin 2.8 gm/dL (4.2-5.5) L 08/04/17 05:20 Globulin 2.1 gm/dL 08/04/17 05:20 Albumin/Globulin Ratio 1.3 (1.0-1.8) 08/04/17 05:20 TSH 0.11 uIU/ml (0.34-5.60) L 08/03/17 06:36 - Physical Exam Vitals and I&O: Vital Signs Temp 99.3 F 08/04/17 04:00 Pulse 101 08/04/17 12:48 Resp 18 08/04/17 12:48 BP 139/67 08/04/17 04:00 Pulse Ox 98 08/04/17 12:48 Intake & Output 08/03/17 08/04/17 08/04/17 18:59 06:59 18:59 Intake Total 550 Balance 550 Weight (lbs) 67.132 kg 67.132 kg Intake: Intake, IV Amount 50 cefTRIAXone 1 gm In 50 Sodium Chloride 0.9% 50 ml @ 100 mls/hr IV Q24HR [facility] Rx#:[id number] Oral 500 Other: # Voids 1 # Bowel Movements 0 Stool Characteristics Soft Formed Brown Active Medications: Current Medications Acetaminophen (Tylenol) 650 mg PO Q6H PRN PRN Reason: Pain or Fever >101 Stop: 10/01/17 17:56 Albuterol Sulfate (Albuterol 2.5mg/3ml Neb Ud) 2.5 mg HHN Q6HRT [facility] Stop: 10/01/17 18:59 Last Admin: 08/04/17 12:48 Dose: 2.5 mg Chlorpromazine (Thorazine) 25 mg PO Q8HR PRN; Protocol PRN Reason: Hiccups Stop: 10/01/17 17:59 Famotidine (Pepcid) 20 mg GT DAILY [facility]USAN Stop: 10/02/17 08:59 Last Admin: 08/04/17 09:02 Dose: 20 mg Hydromorphone HCl (Dilaudid) 1 mg IVP Q4HR PRN PRN Reason: Pain (Severe) Stop: 10/01/17 17:52 Last Admin: 08/04/17 00:15 Dose: 1 mg Ceftriaxone Sodium 1 gm/ (Sodium Chloride) 50 mls @ 100 mls/hr IV Q24HR [facility] Stop: 10/01/17 17:59 Last Infusion: 08/03/17 17:41 Dose: Infused Insulin Aspart (Novolog Insulin Sliding Scale) 0 units SUBQ Q6HR SUSAN PRN Reason: Protocol Stop: 10/01/17 17:59 Last Admin: 08/04/17 12:08 Dose: 2 units Lactobacillus Rhamnosus (Culturelle 15b) 1 each PO DAILY [facility]USAN Stop: 10/02/17 08:59 Last Admin: 08/04/17 09:02 Dose: 1 each Lactobacillus Rhamnosus (Culturelle 15b) 1 each PO DAILY [facility] Stop: 10/03/17 08:59 Last Admin: 08/04/17 09:03 Dose: Not Given Levothyroxine Sodium (Synthroid) 0.15 mg GT QDAC [facility]US[facility] Stop: 10/02/17 14:20 Last Admin: 08/04/17 09:02 Dose: 0.15 mg Miscellaneous (Probiotic Screen) 1 ea PRN PRN PRN Reason: PROTOCOL Stop: 10/02/17 10:59 Miscellaneous (Clinical Monitoring) 1 ea PRN PRN PRN Reason: RENAL Stop: 10/03/17 13:37 Ondansetron HCl (Zofran) 4 mg IV Q6H PRN PRN Reason: Nausea / Vomiting Stop: 10/01/17 17:55 General: Alert, Oriented x3, Cooperative, No acute distress HEENT: Atraumatic Neck: Supple Cardiovascular: Regular rate, Normal S1, Normal S2 (decrease BS) Lungs: Other (Rude respiration, some secreations) Abdomen: Bowel sounds, Soft Extremities: Other (BK Amputation of lrft leg, right foot cover with winnie) Neurological: Sensation intact, Other (ambulatory) Skin: no Rash Psych/Mental Status: Mood NL - Procedures Procedures: Procedures Procedure Code Date AMPUTATION OF LOWER LEG 02244 03/20/17 AMPUTATION OF TOE 64882 08/02/17 CATARAC PHACOEMULS/ASPIR 13.41 02/11/10 CATARACT SURG W/IOL 1 STAGE 94069 02/11/10 CHANGE FEEDING DEVICE IN UP INTEST TRACT, DBA DEVELOPER APPROACH [id number] 03/20/17 CHANGE GASTROSTOMY TUBE 61703 03/20/17 DETACHMENT AT LEFT LOWER LEG, HIGH, OPEN APPROACH [id number] 03/20/17 DETACHMENT AT RIGHT 1ST TOE, COMPLETE, OPEN APPROACH [id number] 03/20/17 DETACHMENT AT RIGHT 2ND TOE, MID, OPEN APPROACH [id number] 08/02/17 INSERT LENS AT CATAR EXT 13.71 02/11/10 PERFORMANCE OF URINARY FILTRATION, MULTIPLE [id number] 03/20/17 Assessment/Plan - Assessment Assessment: 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 Ess Htn Type 2 DM Morbid Obesity CAD Hypothyroid - Plan Plan: Lab - Result Diagrams 08/04/17 05:20 08/04/17 05:20 Current Medications Acetaminophen (Tylenol) 650 mg PO Q6H PRN PRN Reason: Pain or Fever >101 Stop: 10/01/17 17:56 Albuterol Sulfate (Albuterol 2.5mg/3ml Neb Ud) 2.5 mg HHN Q6HRT [facility] Stop: 10/01/17 18:59 Last Admin: 08/04/17 12:48 Dose: 2.5 mg Chlorpromazine (Thorazine) 25 mg PO Q8HR PRN; Protocol PRN Reason: Hiccups Stop: 10/01/17 17:59 Famotidine (Pepcid) 20 mg GT DAILY [facility] Stop: 10/02/17 08:59 Last Admin: 08/04/17 09:02 Dose: 20 mg Hydromorphone HCl (Dilaudid) 1 mg IVP Q4HR PRN PRN Reason: Pain (Severe) Stop: 10/01/17 17:52 Last Admin: 08/04/17 00:15 Dose: 1 mg Ceftriaxone Sodium 1 gm/ (Sodium Chloride) 50 mls @ 100 mls/hr IV Q24HR [facility] Stop: 10/01/17 17:59 Last Infusion: 08/03/17 17:41 Dose: Infused Insulin Aspart (Novolog Insulin Sliding Scale) 0 units SUBQ Q6HR [facility] PRN Reason: Protocol Stop: 10/01/17 17:59 Last Admin: 08/04/17 12:08 Dose: 2 units Lactobacillus Rhamnosus (Culturelle 15b) 1 each PO DAILY [facility] Stop: 10/02/17 08:59 Last Admin: 08/04/17 09:02 Dose: 1 each Lactobacillus Rhamnosus (Culturelle 15b) 1 each PO DAILY [facility] Stop: 10/03/17 08:59 Last Admin: 08/04/17 09:03 Dose: Not Given Levothyroxine Sodium (Synthroid) 0.15 mg GT QDAC [facility] Stop: 10/02/17 14:20 Last Admin: 08/04/17 09:02 Dose: 0.15 mg Miscellaneous (Probiotic Screen) 1 ea MC PRN PRN PRN Reason: PROTOCOL Stop: 10/02/17 10:59 Miscellaneous (Clinical Monitoring) 1 ea MC PRN PRN PRN Reason: RENAL Stop: 10/03/17 13:37 Ondansetron HCl (Zofran) 4 mg IV Q6H PRN PRN Reason: Nausea / Vomiting Stop: 10/01/17 17:55 Lab - Result Diagrams 08/04/17 05:20 08/04/17 05:20 Pt. was dilayzed today but BP in the low side He received 2 bags of 25% albumin to no avail need to terminate dialysis early reschedule in am Nutritional Asmnt/Malnutr-PDOC - Dietary Evaluation Malnutrition Findings (Please click <Entered> for more info): Nutritional Asmnt/Malnutrition Start: 08/03/17 17: 46 Text: Status: Complete Freq: Document 08/03/17 17:46 CHAPO (Rec: 08/03/17 17:58 HEN [email or web address]) Nutritional Asmnt/Malnutrition Patient General Information Nutritional Screening High Risk Consult Diagnosis gangrene right foot Pertinent Medical Hx/Surgical Hx PVD, s/p BKA left, right big toe, CAD, CHF, HTN, Chronic renal failure, ESRD on HD, weakness Subjective Information Consult received for elevated BS. Pt having surgery for secomd toe amputation at time of visit, not able to visit pt . Current Diet Order/ Nutrition Support NPO Pertinent Medications novolog, culturelle, synthroid Pertinent Labs 08/03 Na 143, K 3.4, Cl 104, BUN 33, Cr 4.0, Glucose 117, POC 123-198, 08/02 A1c 7.6 Nutritional Hx/Data Height 1.63 m Height (Calculated Centimeters) 162.6 Current Weight (lbs) 67.132 kg Weight (Calculated Kilograms) 67.1 Weight (Calculated Grams) 45066.7 [place] Body Weight 120 % [place] Body Weight 123 Body Mass Index (BMI) 25.4 Weight Status Overweight GI Symptoms GI Symptoms None Last BM 0 Difficult in: None Skin Integrity/Comment: SCARS IN MULTIPLE BODY PARTS ulceration to right second toe Estimated Nutritional Goals BEE in Kcals: Using Current wt Calories/Kcals/Kg 25-30 Kcals Calculated 4765-4508 Protein: Using Current wt Protein g/k-1.2 Protein Calculated 61-73 Fluid: ml 1675-1830ml (1ml/kcal) Nutritional Problem 2. Problem Problem increased nutrition needs ( calorie and protein) Etiology increased metabolic demand for wound healing Signs/Symptoms: ulceration and s/p amputation 1. Problem Problem altered nutrition realted lab values Etiology hx of DM Signs/Symptoms: Glucose 117, POC 123-198, A1c 7.6 Malnutrition Alert Protein-Calorie Malnutrition N/A Is there a minimum of two criteria No selected? Query Text:Check all the applicable criteria. A minimum of two criteria are recommended for diagnosis of either severe or non-severe malnutrition. Intervention/Recommendation Comments 1. Advance diet as tolerated. Recommend CCHO-60gm diet. 2. Monitor PO intake, wt, labs and skin integrity 3. F/U as moderate risk in 3-5 days, PO check 08/04 Expected Outcomes/Goals Expected Outcomes/Goals 1. PO intake to meet at least 75% of nutritional needs. 2. Wt stability, skin to remain intact, labs to approach WNL.
[2017-08-04] MEDS: cefTRIAXone 1 GM in Sodium Chloride 0.9% 50 ML IV SCH (18:01)
[2017-08-05] MEDS: INSULIN ASPART SLIDING SCALE 100 UNITS/ML UNIT SUBQ SCH ×5 (00:19→23:07)
[2017-08-05] MEDS: Albuterol Nebulizer 2.5mg/3mL HHN SCH ×4 (01:29→19:30)
[2017-08-05] MEDS: HYDROmorphone 1 mg/mL 1mL Syr IVP PRN ×3 (05:14→23:36)
[2017-08-05 06:38] LABS: % EOSINOPHILS 3.9 % (0.0-5.0); % MONOCYTES 5.8 % (2.0-10.0); % NEUTROPHILS 78.3 % (40.0-80.0); EOSINOPHILE ABSOLUTE 0.3 Th/cmm (0.1-0.4); HEMATOCRIT 26.4 % (41.0-60); HEMOGLOBIN 8.8 gm/dL (12-16); MEAN CORPUSCULAR HEMOGLOBIN 32.2 pg (27.0-31.0); MEAN CORPUSCULAR HGB CONC 33.2 pg (28.0-36.0); MEAN PLATELET VOLUME 7.1 fl; MONOCYTE ABSOLUTE 0.5 Th/cmm (0.3-1.0); NEUTROPHILE ABSOLUTE 6.3 Th/cmm (1.8-8.0); PLATELET COUNT 180 Th/cmm (150-400); RED BLOOD COUNT 2.72 Mil/cmm (3.80-5.80); RED CELL DISTRIBUTION WIDTH 16.9 % (11.5-20.0); WHITE BLOOD COUNT 8.1 Th/cmm (4.8-10.8)
[2017-08-05 07:23] LABS: ALKALINE PHOSPHATASE 61 U/L (34-104); ANION GAP 13.3 (7.0-16.0); BILIRUBIN,TOTAL 0.5 mg/dL (0.3-1.0); BUN - UREA NITROGEN 43 mg/dL (7-25); CALCIUM SERUM 8.8 mg/dL (8.6-10.3); CARBON DIOXIDE 27.9 mEq/L (21.0-31.0); CHLORIDE 101 mEq/L (98-107); GLUCOSE 171 mg/dL (70-105); POTASSIUM SERUM 4.2 mEq/L (3.5-5.1); SGOT 10 U/L (13-39); SGPT/ALT 5 U/L (7-52); SODIUM SERUM 138 mEq/L (136-145)
[2017-08-05] MEDS: Levothyroxine 0.1 Mg Tab GT SCH (07:24)
[2017-08-05 08:07] LABS: ALB/GLOB RATIO 1.3 (1.0-1.8); TOTAL PROTEIN,SERUM 5.4 gm/dL (6.0-8.3)
--- NOTE | 2017-08-05 08:41 | Diagnostic Imaging Report ---
Portable chest x-ray HISTORY: Shortness of breath Compared with the prior exam of August 04, 2017, there remains opacification the left lower hemithorax consistent with a pleural effusion. Underlying consolidation and/or atelectasis cannot be excluded. The heart remains enlarged. IMPRESSION: 1. No significant change in the cardiopulmonary status since August 04, 2017.
[2017-08-05] MEDS: Lactobacillus Rhamnosus GG 15 Billion CFU CAP.SPRINK PO SCH (08:55)
[2017-08-05] MEDS ORDERED: cefTRIAXone 1 GM in Sodium Chloride 0.9% 50 ML IM ONE (09:15)
[2017-08-05] MEDS ORDERED: cefTRIAXone 1 GM in Sodium Chloride 0.9% 50 ML IV ONE (10:00)
--- NOTE | 2017-08-05 10:28 | General Progress Note ---
Subjective - Review of Systems Service Date: 08/05/17 Events since last encounter: redressed, local wound care ordered Objective - Results Result Diagrams: 08/05/17 06:04 08/05/17 06:04 Recent Labs: Laboratory Last Values WBC 8.1 Th/cmm (4.8-10.8) 08/05/17 06:04 RBC 2.72 Mil/cmm (3.80-5.80) L 08/05/17 06:04 Hgb 8.8 gm/dL (12-16) L 08/05/17 06:04 Hct 26.4 % (41.0-60) L 08/05/17 06:04 MCV 97.0 fl (80-99) 08/05/17 06:04 MCH 32.2 pg (27.0-31.0) H 08/05/17 06:04 MCHC Differential 33.2 pg (28.0-36.0) 08/05/17 06:04 RDW 16.9 % (11.5-20.0) 08/05/17 06:04 Plt Count 180 Th/cmm (150-400) 08/05/17 06:04 MPV 7.1 fl 08/05/17 06:04 Neutrophils % 78.3 % (40.0-80.0) 08/05/17 06:04 Lymphocytes % 12.0 % (20.0-50.0) L 08/05/17 06:04 Monocytes % 5.8 % (2.0-10.0) 08/05/17 06:04 Eosinophils % 3.9 % (0.0-5.0) 08/05/17 06:04 Basophils % 0.0 % (0.0-2.0) 08/05/17 06:04 PT 12.2 SECONDS (9.5-11.5) H 08/03/17 06:36 INR 1.16 (0.5-1.4) 08/03/17 06:36 PTT (Actin FS) 36.8 SECONDS (26.0-38.0) 08/03/17 06:36 Sodium 138 mEq/L (136-145) 08/05/17 06:04 Potassium 4.2 mEq/L (3.5-5.1) 08/05/17 06:04 Chloride 101 mEq/L (98-107) 08/05/17 06:04 Carbon Dioxide 27.9 mEq/L (21.0-31.0) 08/05/17 06:04 Anion Gap 13.3 (7.0-16.0) 08/05/17 06:04 BUN 43 mg/dL (7-25) H 08/05/17 06:04 Creatinine 5.7 mg/dL (0.7-1.3) H* 08/05/17 06:04 Est GFR ( Amer) TNP 08/05/17 06:04 Est GFR (Non-Af Amer) TNP 08/05/17 06:04 BUN/Creatinine Ratio 7.5 08/05/17 06:04 Glucose 171 mg/dL (70-105) H 08/05/17 06:04 POC Glucose 159 MG/DL (70 - 105) H 08/05/17 07:23 Hemoglobin A1c % 7.6 % (4.0-6.0) H 08/02/17 17:50 Calcium 8.8 mg/dL (8.6-10.3) 08/05/17 06:04 Total Bilirubin 0.5 mg/dL (0.3-1.0) 08/05/17 06:04 AST 10 U/L (13-39) L 08/05/17 06:04 ALT 5 U/L (7-52) L 08/05/17 06:04 Alkaline Phosphatase 61 U/L (34-104) 08/05/17 06:04 B-Natriuretic Peptide 1840.0 pg/mL (5.0-100.0) H 08/04/17 05:20 Total Protein 5.4 gm/dL (6.0-8.3) L 08/05/17 06:04 Albumin 3.0 gm/dL (4.2-5.5) L 08/05/17 06:04 Globulin 2.4 gm/dL 08/05/17 06:04 Albumin/Globulin Ratio 1.3 (1.0-1.8) 08/05/17 06:04 TSH 0.11 uIU/ml (0.34-5.60) L 08/03/17 06:36 - Physical Exam Vitals and I&O: Vital Signs Temp 99.6 F 08/05/17 05:50 Pulse 103 08/05/17 08:10 Resp 18 08/05/17 08:22 BP 154/77 08/05/17 05:50 Pulse Ox 96 08/05/17 08:10 Intake & Output 08/04/17 08/05/17 08/05/17 18:59 06:59 18:59 Intake Total 350 150 Balance 350 150 Weight (lbs) 67.132 kg 67.132 kg Intake: Intake, IV Amount 50 cefTRIAXone 1 gm In 50 Sodium Chloride 0.9% 50 ml @ 100 mls/hr IV Q24HR [facility] Rx#:[id number] Oral 350 100 Other: # Voids 2 0 # Bowel Movements 0 0 Active Medications: Current Medications Acetaminophen (Tylenol) 650 mg PO Q6H PRN PRN Reason: Pain or Fever >101 Stop: 10/01/17 17:56 Albuterol Sulfate (Albuterol 2.5mg/3ml Neb Ud) 2.5 mg HHN Q6HRT [facility] Stop: 10/01/17 18:59 Last Admin: 08/05/17 08:09 Dose: 2.5 mg Chlorpromazine (Thorazine) 25 mg PO Q8HR PRN; Protocol PRN Reason: Hiccups Stop: 10/01/17 17:59 Famotidine (Pepcid) 20 mg GT DAILY [facility] Stop: 10/02/17 08:59 Last Admin: 08/05/17 08:55 Dose: 20 mg Hydromorphone HCl (Dilaudid) 1 mg IVP Q4HR PRN PRN Reason: Pain (Severe) Stop: 10/01/17 17:52 Last Admin: 08/05/17 05:14 Dose: 1 mg Ceftriaxone Sodium 1 gm/ (Sodium Chloride) 50 mls @ 100 mls/hr IV Q24HR [facility] Stop: 10/01/17 17:59 Last Infusion: 08/05/17 01:33 Dose: Infused Albumin Human (Albuminar 25%) 25 gm in 100 mls @ 50 mls/hr IV X1 ONE Stop: 08/05/17 16:26 Ceftriaxone Sodium 1 gm/ (Sodium Chloride) 50 mls @ 100 mls/hr IV X1 ONE Stop: 08/05/17 10:29 Insulin Aspart (Novolog Insulin Sliding Scale) 0 units SUBQ ACHS [facility] PRN Reason: Protocol Stop: 10/04/17 07:29 Last Admin: 08/05/17 07:50 Dose: 2 units Lactobacillus Rhamnosus (Culturelle 15b) 1 each PO DAILY [facility] Stop: 10/03/17 08:59 Last Admin: 08/05/17 08:55 Dose: 1 each Levothyroxine Sodium (Synthroid) 0.15 mg GT QDAC [facility] Stop: 10/02/17 14:20 Last Admin: 08/05/17 07:24 Dose: 0.15 mg Miscellaneous (Probiotic Screen) 1 ea PRN PRN PRN Reason: PROTOCOL Stop: 10/02/17 10:59 Miscellaneous (Clinical Monitoring) 1 ea PRN PRN PRN Reason: RENAL Stop: 10/03/17 13:37 Ondansetron HCl (Zofran) 4 mg IV Q6H PRN PRN Reason: Nausea / Vomiting Stop: 10/01/17 17:55 General: Alert, Oriented x3, Cooperative, No acute distress HEENT: Atraumatic Neck: Supple Cardiovascular: Regular rate, Normal S1, Normal S2 (decrease BS) Lungs: Other (Rude respiration, some secreations) Abdomen: Bowel sounds, Soft Extremities: Other (BK Amputation of lrft leg, right foot cover with winnie) Neurological: Sensation intact, Other (ambulatory) Skin: no Rash Psych/Mental Status: Mood NL - Procedures Procedures: Procedures Procedure Code Date AMPUTATION OF LOWER LEG 16251 03/20/17 AMPUTATION OF TOE 18490 08/02/17 CATARAC PHACOEMULS/ASPIR 13.41 02/11/10 CATARACT SURG W/IOL 1 STAGE 02672 02/11/10 CHANGE FEEDING DEVICE IN UP INTEST TRACT, AUDITOR TAX APPROACH [id number] 03/20/17 CHANGE GASTROSTOMY TUBE 91501 03/20/17 DETACHMENT AT LEFT LOWER LEG, HIGH, OPEN APPROACH [id number] 03/20/17 DETACHMENT AT RIGHT 1ST TOE, COMPLETE, OPEN APPROACH [id number] 03/20/17 DETACHMENT AT RIGHT 2ND TOE, MID, OPEN APPROACH [id number] 08/02/17 INSERT LENS AT CATAR EXT 13.71 02/11/10 PERFORMANCE OF URINARY FILTRATION, MULTIPLE [id number] 03/20/17 Nutritional Asmnt/Malnutr-PDOC - Dietary Evaluation Malnutrition Findings (Please click <Entered> for more info): Nutritional Asmnt/Malnutrition Start: 08/03/17 17: 46 Text: Status: Complete Freq: Document 08/03/17 17:46 TYLOR (Rec: 08/03/17 17:58 TYLOR [email or web address]) Nutritional Asmnt/Malnutrition Patient General Information Nutritional Screening High Risk Consult Diagnosis gangrene right foot Pertinent Medical Hx/Surgical Hx PVD, s/p BKA left, right big toe, CAD, CHF, HTN, Chronic renal failure, ESRD on HD, weakness Subjective Information Consult received for elevated BS. Pt having surgery for secomd toe amputation at time of visit, not able to visit pt . Current Diet Order/ Nutrition Support NPO Pertinent Medications novolog, culturelle, synthroid Pertinent Labs 08/03 Na 143, K 3.4, Cl 104, BUN 33, Cr 4.0, Glucose 117, POC 123-198, 08/02 A1c 7.6 Nutritional Hx/Data Height 1.63 m Height (Calculated Centimeters) 162.6 Current Weight (lbs) 67.132 kg Weight (Calculated Kilograms) 67.1 Weight (Calculated Grams) 22888.7 [place] Body Weight 120 % [place] Body Weight 123 Body Mass Index (BMI) 25.4 Weight Status Overweight GI Symptoms GI Symptoms None Last BM 0 Difficult in: None Skin Integrity/Comment: SCARS IN MULTIPLE BODY PARTS ulceration to right second toe Estimated Nutritional Goals BEE in Kcals: Using Current wt Calories/Kcals/Kg 25-30 Kcals Calculated 4260-5510 Protein: Using Current wt Protein g/k-1.2 Protein Calculated 61-73 Fluid: ml 1675-1830ml (1ml/kcal) Nutritional Problem 2. Problem Problem increased nutrition needs ( calorie and protein) Etiology increased metabolic demand for wound healing Signs/Symptoms: ulceration and s/p amputation 1. Problem Problem altered nutrition realted lab values Etiology hx of DM Signs/Symptoms: Glucose 117, POC 123-198, A1c 7.6 Malnutrition Alert Protein-Calorie Malnutrition N/A Is there a minimum of two criteria No selected? Query Text:Check all the applicable criteria. A minimum of two criteria are recommended for diagnosis of either severe or non-severe malnutrition. Intervention/Recommendation Comments 1. Advance diet as tolerated. Recommend CCHO-60gm diet. 2. Monitor PO intake, wt, labs and skin integrity 3. F/U as moderate risk in 3-5 days, PO check 08/04 Expected Outcomes/Goals Expected Outcomes/Goals 1. PO intake to meet at least 75% of nutritional needs. 2. Wt stability, skin to remain intact, labs to approach WNL.
[2017-08-05] MEDS ORDERED: Albumin 25% 25gm/100mL 25 GM/100 ML BTL IV ONE ×6 (12:22→16:35)
[2017-08-05] MEDS ORDERED: Alteplase, Recombinant 100 mg Kit IV STA (13:32)
[2017-08-05] MEDS ORDERED: Albumin 25% 25gm/100mL 50 GM/200 ML BTL IV ONE (14:00)
--- NOTE | 2017-08-05 14:16 | General Progress Note ---
Subjective - Review of Systems Service Date: 08/05/17 Subjective: awake, comfortable Objective - Results Result Diagrams: 08/05/17 06:04 08/05/17 06:04 Recent Labs: Laboratory Last Values WBC 8.1 Th/cmm (4.8-10.8) 08/05/17 06:04 RBC 2.72 Mil/cmm (3.80-5.80) L 08/05/17 06:04 Hgb 8.8 gm/dL (12-16) L 08/05/17 06:04 Hct 26.4 % (41.0-60) L 08/05/17 06:04 MCV 97.0 fl (80-99) 08/05/17 06:04 MCH 32.2 pg (27.0-31.0) H 08/05/17 06:04 MCHC Differential 33.2 pg (28.0-36.0) 08/05/17 06:04 RDW 16.9 % (11.5-20.0) 08/05/17 06:04 Plt Count 180 Th/cmm (150-400) 08/05/17 06:04 MPV 7.1 fl 08/05/17 06:04 Neutrophils % 78.3 % (40.0-80.0) 08/05/17 06:04 Lymphocytes % 12.0 % (20.0-50.0) L 08/05/17 06:04 Monocytes % 5.8 % (2.0-10.0) 08/05/17 06:04 Eosinophils % 3.9 % (0.0-5.0) 08/05/17 06:04 Basophils % 0.0 % (0.0-2.0) 08/05/17 06:04 PT 12.2 SECONDS (9.5-11.5) H 08/03/17 06:36 INR 1.16 (0.5-1.4) 08/03/17 06:36 PTT (Actin FS) 36.8 SECONDS (26.0-38.0) 08/03/17 06:36 Sodium 138 mEq/L (136-145) 08/05/17 06:04 Potassium 4.2 mEq/L (3.5-5.1) 08/05/17 06:04 Chloride 101 mEq/L (98-107) 08/05/17 06:04 Carbon Dioxide 27.9 mEq/L (21.0-31.0) 08/05/17 06:04 Anion Gap 13.3 (7.0-16.0) 08/05/17 06:04 BUN 43 mg/dL (7-25) H 08/05/17 06:04 Creatinine 5.7 mg/dL (0.7-1.3) H* 08/05/17 06:04 Est GFR ( Amer) TNP 08/05/17 06:04 Est GFR (Non-Af Amer) TNP 08/05/17 06:04 BUN/Creatinine Ratio 7.5 08/05/17 06:04 Glucose 171 mg/dL (70-105) H 08/05/17 06:04 POC Glucose 177 MG/DL (70 - 105) H 08/05/17 12:54 Hemoglobin A1c % 7.6 % (4.0-6.0) H 08/02/17 17:50 Calcium 8.8 mg/dL (8.6-10.3) 08/05/17 06:04 Total Bilirubin 0.5 mg/dL (0.3-1.0) 08/05/17 06:04 AST 10 U/L (13-39) L 08/05/17 06:04 ALT 5 U/L (7-52) L 08/05/17 06:04 Alkaline Phosphatase 61 U/L (34-104) 08/05/17 06:04 B-Natriuretic Peptide 1840.0 pg/mL (5.0-100.0) H 08/04/17 05:20 Total Protein 5.4 gm/dL (6.0-8.3) L 08/05/17 06:04 Albumin 3.0 gm/dL (4.2-5.5) L 08/05/17 06:04 Globulin 2.4 gm/dL 08/05/17 06:04 Albumin/Globulin Ratio 1.3 (1.0-1.8) 08/05/17 06:04 TSH 0.11 uIU/ml (0.34-5.60) L 08/03/17 06:36 - Physical Exam Vitals and I&O: Vital Signs Temp 99.6 F 08/05/17 05:50 Pulse 106 08/05/17 13:41 Resp 18 08/05/17 13:41 BP 154/77 08/05/17 05:50 Pulse Ox 97 08/05/17 13:41 Intake & Output 08/04/17 08/05/17 08/05/17 18:59 06:59 18:59 Intake Total 350 150 50 Balance 350 150 50 Weight (lbs) 67.132 kg 67.132 kg Intake: Intake, IV Amount 50 50 cefTRIAXone 1 gm In 50 Sodium Chloride 0.9% 50 ml @ 100 mls/hr IV Q24HR [facility] Rx#:[id number] cefTRIAXone 1 gm In 50 Sodium Chloride 0.9% 50 ml @ 100 mls/hr IV X1 ONE Rx#:[id number] Oral 350 100 Other: # Voids 2 0 # Bowel Movements 0 0 Active Medications: Current Medications Acetaminophen (Tylenol) 650 mg PO Q6H PRN PRN Reason: Pain or Fever >101 Stop: 10/01/17 17:56 Albuterol Sulfate (Albuterol 2.5mg/3ml Neb Ud) 2.5 mg HHN Q6HRT [facility] Stop: 10/01/17 18:59 Last Admin: 08/05/17 13:40 Dose: 2.5 mg Chlorpromazine (Thorazine) 25 mg PO Q8HR PRN; Protocol PRN Reason: Hiccups Stop: 10/01/17 17:59 Famotidine (Pepcid) 20 mg GT DAILY [facility] Stop: 10/02/17 08:59 Last Admin: 08/05/17 08:55 Dose: 20 mg Hydromorphone HCl (Dilaudid) 1 mg IVP Q4HR PRN PRN Reason: Pain (Severe) Stop: 10/01/17 17:52 Last Admin: 08/05/17 05:14 Dose: 1 mg Ceftriaxone Sodium 1 gm/ (Sodium Chloride) 50 mls @ 100 mls/hr IV Q24HR [facility] Stop: 10/01/17 17:59 Last Infusion: 08/05/17 01:33 Dose: Infused Albumin Human (Albuminar 25%) 50 gm in 200 mls @ 100 mls/hr IV 1400 ONE Stop: 08/05/17 15:59 Albumin Human (Albuminar 25%) 25 gm in 100 mls @ 50 mls/hr IV X1 ONE Stop: 08/05/17 15:48 Insulin Aspart (Novolog Insulin Sliding Scale) 0 units SUBQ ACHS [facility] PRN Reason: Protocol Stop: 10/04/17 07:29 Last Admin: 08/05/17 13:00 Dose: 2 units Lactobacillus Rhamnosus (Culturelle 15b) 1 each PO DAILY [facility] Stop: 10/03/17 08:59 Last Admin: 08/05/17 08:55 Dose: 1 each Levothyroxine Sodium (Synthroid) 0.15 mg GT QDAC [facility] Stop: 10/02/17 14:20 Last Admin: 08/05/17 07:24 Dose: 0.15 mg Miscellaneous (Probiotic Screen) 1 ea PRN PRN PRN Reason: PROTOCOL Stop: 10/02/17 10:59 Miscellaneous (Clinical Monitoring) 1 [facility] PRN PRN PRN Reason: RENAL Stop: 10/03/17 13:37 Ondansetron HCl (Zofran) 4 mg IV Q6H PRN PRN Reason: Nausea / Vomiting Stop: 10/01/17 17:55 General: Alert, Oriented x3, Cooperative, No acute distress HEENT: Atraumatic, Mucous membr. moist/pink Neck: Supple, +2 carotid pulse wo bruit Cardiovascular: Regular rate, Normal S1, Normal S2 (decrease BS) Lungs: Other (few rhonchi) Abdomen: Bowel sounds, Soft Extremities: Other (BK Amputation of left leg, right foot with gauze) Neurological: Sensation intact Skin: no Rash Psych/Mental Status: Mood NL - Procedures Procedures: Procedures Procedure Code Date AMPUTATION OF LOWER LEG 83691 03/20/17 AMPUTATION OF TOE 45380 08/02/17 CATARAC PHACOEMULS/ASPIR 13.41 02/11/10 CATARACT SURG W/IOL 1 STAGE 35621 02/11/10 CHANGE FEEDING DEVICE IN UP INTEST TRACT, [employer]ING [employer]ENT APPROACH [id number] 03/20/17 CHANGE GASTROSTOMY TUBE 06540 03/20/17 DETACHMENT AT LEFT LOWER LEG, HIGH, OPEN APPROACH [id number] 03/20/17 DETACHMENT AT RIGHT 1ST TOE, COMPLETE, OPEN APPROACH [id number] 03/20/17 DETACHMENT AT RIGHT 2ND TOE, MID, OPEN APPROACH [id number] 08/02/17 INSERT LENS AT CATAR EXT 13.71 02/11/10 PERFORMANCE OF URINARY FILTRATION, MULTIPLE [id number] 03/20/17 Assessment/Plan - Assessment Assessment: ESRD on HD PAD S/P Amputation right 2nd digit, S/P BKA Ess Htn Type 2 DM Morbid Obesity CAD Hypothyroid - Plan Plan: Lab - Result Diagrams 08/04/17 05:20 08/04/17 05:20 Current Medications Acetaminophen (Tylenol) 650 mg PO Q6H PRN PRN Reason: Pain or Fever >101 Stop: 10/01/17 17:56 Albuterol Sulfate (Albuterol 2.5mg/3ml Neb Ud) 2.5 mg HHN Q6HRT [facility] Stop: 10/01/17 18:59 Last Admin: 08/04/17 12:48 Dose: 2.5 mg Chlorpromazine (Thorazine) 25 mg PO Q8HR PRN; Protocol PRN Reason: Hiccups Stop: 10/01/17 17:59 Famotidine (Pepcid) 20 mg GT DAILY [facility] Stop: 10/02/17 08:59 Last Admin: 08/04/17 09:02 Dose: 20 mg Hydromorphone HCl (Dilaudid) 1 mg IVP Q4HR PRN PRN Reason: Pain (Severe) Stop: 10/01/17 17:52 Last Admin: 08/04/17 00:15 Dose: 1 mg Ceftriaxone Sodium 1 gm/ (Sodium Chloride) 50 mls @ 100 mls/hr IV Q24HR [facility] Stop: 10/01/17 17:59 Last Infusion: 08/03/17 17:41 Dose: Infused Insulin Aspart (Novolog Insulin Sliding Scale) 0 units SUBQ Q6HR [facility] PRN Reason: Protocol Stop: 10/01/17 17:59 Last Admin: 08/04/17 12:08 Dose: 2 units Lactobacillus Rhamnosus (Culturelle 15b) 1 each PO DAILY [facility] Stop: 10/02/17 08:59 Last Admin: 08/04/17 09:02 Dose: 1 each Lactobacillus Rhamnosus (Culturelle 15b) 1 each PO DAILY [facility] Stop: 10/03/17 08:59 Last Admin: 08/04/17 09:03 Dose: Not Given Levothyroxine Sodium (Synthroid) 0.15 mg GT QDAC [facility] Stop: 10/02/17 14:20 Last Admin: 08/04/17 09:02 Dose: 0.15 mg Miscellaneous (Probiotic Screen) 1 e[facility] PRN PRN PRN Reason: PROTOCOL Stop: 10/02/17 10:59 Miscellaneous (Clinical Monitoring) 1 [facility] PRN PRN PRN Reason: RENAL Stop: 10/03/17 13:37 Ondansetron HCl (Zofran) 4 mg IV Q6H PRN PRN Reason: Nausea / Vomiting Stop: 10/01/17 17:55 Lab - Result Diagrams 08/05/17 06:04 08/05/17 06:04 pt. underwent dialysis but AP/EDUCATIONAL GUIDANCE COUNSELOR quite low, unable to pull blood out of cath after 1.5 hrs administer Activase & try again in 4 hrs. if stll non functional, may need to replace cath discussed w/ daughter @ bedside Nutritional Asmnt/Malnutr-PDOC - Dietary Evaluation Malnutrition Findings (Please click <Entered> for more info): Nutritional Asmnt/Malnutrition Start: 08/03/17 17: 46 Text: Status: Complete Freq: Document 08/03/17 17:46 TYLOR (Rec: 08/03/17 17:58 [facility] Nutritional Asmnt/Malnutrition Patient General Information Nutritional Screening High Risk Consult Diagnosis gangrene right foot Pertinent Medical Hx/Surgical Hx PVD, s/p BKA left, right big toe, CAD, CHF, HTN, Chronic renal failure, ESRD on HD, weakness Subjective Information Consult received for elevated BS. Pt having surgery for secomd toe amputation at time of visit, not able to visit pt . Current Diet Order/ Nutrition Support NPO Pertinent Medications novolog, culturelle, synthroid Pertinent Labs 08/03 Na 143, K 3.4, Cl 104, BUN 33, Cr 4.0, Glucose 117, POC 123-198, 2/7 A1c 7.6 Nutritional Hx/Data Height 1.63 m Height (Calculated Centimeters) 162.6 Current Weight (lbs) 67.132 kg Weight (Calculated Kilograms) 67.1 Weight (Calculated Grams) 14620.7 [place] Body Weight 120 % [place] Body Weight 123 Body Mass Index (BMI) 25.4 Weight Status Overweight GI Symptoms GI Symptoms None Last BM 0 Difficult in: None Skin Integrity/Comment: SCARS IN MULTIPLE BODY PARTS ulceration to right second toe Estimated Nutritional Goals BEE in Kcals: Using Current wt Calories/Kcals/Kg 25-30 Kcals Calculated 5773-5165 Protein: Using Current wt Protein g/k-1.2 Protein Calculated 61-73 Fluid: ml 1675-1830ml (1ml/kcal) Nutritional Problem 2. Problem Problem increased nutrition needs ( calorie and protein) Etiology increased metabolic demand for wound healing Signs/Symptoms: ulceration and s/p amputation 1. Problem Problem altered nutrition realted lab values Etiology hx of DM Signs/Symptoms: Glucose 117, POC 123-198, A1c 7.6 Malnutrition Alert Protein-Calorie Malnutrition N/A Is there a minimum of two criteria No selected? Query Text:Check all the applicable criteria. A minimum of two criteria are recommended for diagnosis of either severe or non-severe malnutrition. Intervention/Recommendation Comments 1. Advance diet as tolerated. Recommend CCHO-60gm diet. 2. Monitor PO intake, wt, labs and skin integrity 3. F/U as moderate risk in 3-5 days, PO check 08/04 Expected Outcomes/Goals Expected Outcomes/Goals 1. PO intake to meet at least 75% of nutritional needs. 2. Wt stability, skin to remain intact, labs to approach WNL.
--- NOTE | 2017-08-05 17:42 | General Progress Note ---
Subjective - Review of Systems Service Date: 08/05/17 Subjective: I am ok. Objective - Results Result Diagrams: 08/05/17 06:04 08/05/17 06:04 Recent Labs: Laboratory Last Values WBC 8.1 Th/cmm (4.8-10.8) 08/05/17 06:04 RBC 2.72 Mil/cmm (3.80-5.80) L 08/05/17 06:04 Hgb 8.8 gm/dL (12-16) L 08/05/17 06:04 Hct 26.4 % (41.0-60) L 08/05/17 06:04 MCV 97.0 fl (80-99) 08/05/17 06:04 MCH 32.2 pg (27.0-31.0) H 08/05/17 06:04 MCHC Differential 33.2 pg (28.0-36.0) 08/05/17 06:04 RDW 16.9 % (11.5-20.0) 08/05/17 06:04 Plt Count 180 Th/cmm (150-400) 08/05/17 06:04 MPV 7.1 fl 08/05/17 06:04 Neutrophils % 78.3 % (40.0-80.0) 08/05/17 06:04 Lymphocytes % 12.0 % (20.0-50.0) L 08/05/17 06:04 Monocytes % 5.8 % (2.0-10.0) 08/05/17 06:04 Eosinophils % 3.9 % (0.0-5.0) 08/05/17 06:04 Basophils % 0.0 % (0.0-2.0) 08/05/17 06:04 PT 12.2 SECONDS (9.5-11.5) H 08/03/17 06:36 INR 1.16 (0.5-1.4) 08/03/17 06:36 PTT (Actin FS) 36.8 SECONDS (26.0-38.0) 08/03/17 06:36 Sodium 138 mEq/L (136-145) 08/05/17 06:04 Potassium 4.2 mEq/L (3.5-5.1) 08/05/17 06:04 Chloride 101 mEq/L (98-107) 08/05/17 06:04 Carbon Dioxide 27.9 mEq/L (21.0-31.0) 08/05/17 06:04 Anion Gap 13.3 (7.0-16.0) 08/05/17 06:04 BUN 43 mg/dL (7-25) H 08/05/17 06:04 Creatinine 5.7 mg/dL (0.7-1.3) H* 08/05/17 06:04 Est GFR ( Amer) TNP 08/05/17 06:04 Est GFR (Non-Af Amer) TNP 08/05/17 06:04 BUN/Creatinine Ratio 7.5 08/05/17 06:04 Glucose 171 mg/dL (70-105) H 08/05/17 06:04 POC Glucose 177 MG/DL (70 - 105) H 08/05/17 12:54 Hemoglobin A1c % 7.6 % (4.0-6.0) H 08/02/17 17:50 Calcium 8.8 mg/dL (8.6-10.3) 08/05/17 06:04 Total Bilirubin 0.5 mg/dL (0.3-1.0) 08/05/17 06:04 AST 10 U/L (13-39) L 08/05/17 06:04 ALT 5 U/L (7-52) L 08/05/17 06:04 Alkaline Phosphatase 61 U/L (34-104) 08/05/17 06:04 B-Natriuretic Peptide 1840.0 pg/mL (5.0-100.0) H 08/04/17 05:20 Total Protein 5.4 gm/dL (6.0-8.3) L 08/05/17 06:04 Albumin 3.0 gm/dL (4.2-5.5) L 08/05/17 06:04 Globulin 2.4 gm/dL 08/05/17 06:04 Albumin/Globulin Ratio 1.3 (1.0-1.8) 08/05/17 06:04 TSH 0.11 uIU/ml (0.34-5.60) L 08/03/17 06:36 - Physical Exam Vitals and I&O: Vital Signs Temp 98.5 F 08/05/17 16:00 Pulse 110 08/05/17 16:00 Resp 18 08/05/17 16:00 BP 167/83 08/05/17 16:00 Pulse Ox 98 08/05/17 16:00 Intake & Output 08/04/17 08/05/17 08/05/17 18:59 06:59 18:59 Intake Total 350 150 50 Balance 350 150 50 Weight (lbs) 67.132 kg 67.132 kg Intake: Intake, IV Amount 50 50 cefTRIAXone 1 gm In 50 Sodium Chloride 0.9% 50 ml @ 100 mls/hr IV Q24HR [facility] Rx#:[id number] cefTRIAXone 1 gm In 50 Sodium Chloride 0.9% 50 ml @ 100 mls/hr IV X1 ONE Rx#:[id number] Oral 350 100 Other: # Voids 2 0 # Bowel Movements 0 0 Active Medications: Current Medications Acetaminophen (Tylenol) 650 mg PO Q6H PRN PRN Reason: Pain or Fever >101 Stop: 10/01/17 17:56 Albuterol Sulfate (Albuterol 2.5mg/3ml Neb Ud) 2.5 mg HHN Q6HRT [facility] Stop: 10/01/17 18:59 Last Admin: 08/05/17 13:40 Dose: 2.5 mg Chlorpromazine (Thorazine) 25 mg PO Q8HR PRN; Protocol PRN Reason: Hiccups Stop: 10/01/17 17:59 Famotidine (Pepcid) 20 mg GT DAILY [facility] Stop: 10/02/17 08:59 Last Admin: 08/05/17 08:55 Dose: 20 mg Hydromorphone HCl (Dilaudid) 1 mg IVP Q4HR PRN PRN Reason: Pain (Severe) Stop: 10/01/17 17:52 Last Admin: 08/05/17 05:14 Dose: 1 mg Ceftriaxone Sodium 1 gm/ (Sodium Chloride) 50 mls @ 100 mls/hr IV Q24HR [facility] Stop: 10/01/17 17:59 Last Infusion: 08/05/17 01:33 Dose: Infused Albumin Human (Albuminar 25%) 25 gm in 100 mls @ 50 mls/hr IV X1 ONE Stop: 08/05/17 18:34 Insulin Aspart (Novolog Insulin Sliding Scale) 0 units SUBQ ACHS [facility] PRN Reason: Protocol Stop: 10/04/17 07:29 Last Admin: 08/05/17 13:00 Dose: 2 units Lactobacillus Rhamnosus (Culturelle 15b) 1 each PO DAILY [facility] Stop: 10/03/17 08:59 Last Admin: 08/05/17 08:55 Dose: 1 each Levothyroxine Sodium (Synthroid) 0.15 mg GT QDAC [facility] Stop: 10/02/17 14:20 Last Admin: 08/05/17 07:24 Dose: 0.15 mg Miscellaneous (Probiotic Screen) 1 [facility] PRN PRN PRN Reason: PROTOCOL Stop: 10/02/17 10:59 Miscellaneous (Clinical Monitoring) 1 [facility] PRN PRN PRN Reason: RENAL Stop: 10/03/17 13:37 Ondansetron HCl (Zofran) 4 mg IV Q6H PRN PRN Reason: Nausea / Vomiting Stop: 10/01/17 17:55 General: Alert, Oriented x3, Cooperative, No acute distress HEENT: Atraumatic, Mucous membr. moist/pink Neck: Supple, +2 carotid pulse wo bruit Cardiovascular: Regular rate, Normal S1, Normal S2 (decrease BS) Lungs: Other (few rhonchi) Abdomen: Bowel sounds, Soft Extremities: Other (BK Amputation of left leg, right foot with gauze) Neurological: Sensation intact Skin: no Rash Psych/Mental Status: Mood NL - Procedures Procedures: Procedures Procedure Code Date AMPUTATION OF LOWER LEG 43954 03/20/17 AMPUTATION OF TOE 16153 08/02/17 CATARAC PHACOEMULS/ASPIR 13.41 02/11/10 CATARACT SURG W/IOL 1 STAGE 08628 02/11/10 CHANGE FEEDING DEVICE IN UP INTEST TRACT, [employer] APPROACH [id number] 03/20/17 CHANGE GASTROSTOMY TUBE 45505 03/20/17 DETACHMENT AT LEFT LOWER LEG, HIGH, OPEN APPROACH [id number] 03/20/17 DETACHMENT AT RIGHT 1ST TOE, COMPLETE, OPEN APPROACH [id number] 03/20/17 DETACHMENT AT RIGHT 2ND TOE, MID, OPEN APPROACH [id number] 08/02/17 INSERT LENS AT CATAR EXT 13.71 02/11/10 PERFORMANCE OF URINARY FILTRATION, MULTIPLE [id number] 03/20/17 Assessment/Plan - Assessment Assessment: Patient is awake, alert, calm, in no acute distress. He had some fever. HD was not done due to Mckay catheter malfuntion. Dx: Gangren of second right toe S/ P toe amputation, Plural effusion, ERSD on HD, PVD, CHF, DM, HTN, Gout, S/P BK amputation of left leg, S/P amputation of right big toe. - Plan Plan: NS lock, Ceftriaxone 1 gr IV daily, Pain management, Continue with home meds, Insulin Sliding scale. Amputation was done. Patient follow by Surgeon and Nerphrology. HD will be done as soon catheter is replaced. Consult with ID requested. Will continue to monitor. Nutritional Asmnt/Malnutr-PDOC - Dietary Evaluation Malnutrition Findings (Please click <Entered> for more info): Nutritional Asmnt/Malnutrition Start: 08/03/17 17: 46 Text: Status: Complete Freq: Document 08/03/17 17:46 [email or web address] (Rec: 08/03/17 17:58 [email or web address]) Nutritional Asmnt/Malnutrition Patient General Information Nutritional Screening High Risk Consult Diagnosis gangrene right foot Pertinent Medical Hx/Surgical Hx PVD, s/p BKA left, right big toe, CAD, CHF, HTN, Chronic renal failure, ESRD on HD, weakness Subjective Information Consult received for elevated BS. Pt having surgery for secomd toe amputation at time of visit, not able to visit pt . Current Diet Order/ Nutrition Support NPO Pertinent Medications novolog, culturelle, synthroid Pertinent Labs 08/03 Na 143, K 3.4, Cl 104, BUN 33, Cr 4.0, Glucose 117, POC 123-198, 2/7 A1c 7.6 Nutritional Hx/Data Height 1.63 m Height (Calculated Centimeters) 162.6 Current Weight (lbs) 67.132 kg Weight (Calculated Kilograms) 67.1 Weight (Calculated Grams) 45561.7 [place] Body Weight 120 % [place] Body Weight 123 Body Mass Index (BMI) 25.4 Weight Status Overweight GI Symptoms GI Symptoms None Last BM 0 Difficult in: None Skin Integrity/Comment: SCARS IN MULTIPLE BODY PARTS ulceration to right second toe Estimated Nutritional Goals BEE in Kcals: Using Current wt Calories/Kcals/Kg 25-30 Kcals Calculated 0179-0463 Protein: Using Current wt Protein g/k-1.2 Protein Calculated 61-73 Fluid: ml 1675-1830ml (1ml/kcal) Nutritional Problem 2. Problem Problem increased nutrition needs ( calorie and protein) Etiology increased metabolic demand for wound healing Signs/Symptoms: ulceration and s/p amputation 1. Problem Problem altered nutrition realted lab values Etiology hx of DM Signs/Symptoms: Glucose 117, POC 123-198, A1c 7.6 Malnutrition Alert Protein-Calorie Malnutrition N/A Is there a minimum of two criteria No selected? Query Text:Check all the applicable criteria. A minimum of two criteria are recommended for diagnosis of either severe or non-severe malnutrition. Intervention/Recommendation Comments 1. Advance diet as tolerated. Recommend CCHO-60gm diet. 2. Monitor PO intake, wt, labs and skin integrity 3. F/U as moderate risk in 3-5 days, PO check 08/04 Expected Outcomes/Goals Expected Outcomes/Goals 1. PO intake to meet at least 75% of nutritional needs. 2. Wt stability, skin to remain intact, labs to approach WNL.
[2017-08-05] MEDS: cefTRIAXone 1 GM in Sodium Chloride 0.9% 50 ML IV SCH (18:28)
--- NOTE | 2017-08-05 23:44 | Consultation ---
Consult Note - Consult Note Service Date: 08/05/17 Referring Physician: Kavon Valenzuela Consult Note: PHYSICIAN Consultation Note: Date of Admission: 08/02/17 Purpose of Consultation: Chief Complaint: Patient TITA SUTTON was admitted for AMPUTATION OF RT 2ND TOE. History of Present Illness: patient is 62 year old male with history of dysphasia, DM2, Gout, ckd 5 ON hd, admitted for gangrene of the right litle toe. It was amputated by Dr Sanchez on 01/2018. Now his wound is open. The wound culture grew ESBL postive Proteus mirabilis. So ID consult was called for antibiotic management. 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 (08/02/17) HYP CHR KIDNEY DISEASE W STAGE 5 CHR KIDNEY DISEASE OR ESRD (08/02/17) ATHSCL HEART DISEASE OF [place] CORONARY ARTERY W/O ANG PCTRS (08/02/17) HEART FAILURE, UNSPECIFIED (08/02/17) PERIPHERAL VASCULAR DISEASE, UNSPECIFIED (08/02/17) GOUT, UNSPECIFIED (08/02/17) END STAGE RENAL DISEASE (08/02/17) ACQUIRED ABSENCE OF LEFT LEG BELOW KNEE (08/02/17) PRESENCE OF AORTOCORONARY BYPASS GRAFT (08/02/17) DEPENDENCE ON RENAL DIALYSIS (08/02/17) Allergies Allergy/AdvReac Type Severity Reaction Status Date / Time No Known Allergies Allergy Verified 03/20/17 19:04 Vital Signs Temp 98.5 F 08/05/17 16:00 Pulse 107 08/05/17 19:31 Resp 20 08/05/17 19:31 BP 167/83 08/05/17 16:00 Pulse Ox 100 08/05/17 19:31 Intake & Output 08/05/17 08/05/17 08/06/17 06:59 18:59 06:59 Intake Total 150 50 Balance 150 50 Weight (lbs) 67.132 kg Intake: Intake, IV Amount 50 50 cefTRIAXone 1 gm In 50 Sodium Chloride 0.9% 50 ml @ 100 mls/hr IV Q24HR [facility] Rx#:[id number] cefTRIAXone 1 gm In 50 Sodium Chloride 0.9% 50 ml @ 100 mls/hr IV X1 ONE Rx#:[id number] Oral 100 Other: # Voids 0 # Bowel Movements 0 Laboratory Results - last 24 hr 08/04/17 08/05/17 08/05/17 23:48 06:04 06:04 WBC 8.1 RBC 2.72 L Hgb 8.8 L Hct 26.4 L MCV 97.0 MCH 32.2 H MCHC Differential 33.2 RDW 16.9 Plt Count 180 MPV 7.1 Neutrophils % 78.3 Lymphocytes % 12.0 L Monocytes % 5.8 Eosinophils % 3.9 Basophils % 0.0 Sodium 138 Potassium 4.2 Chloride 101 Carbon Dioxide 27.9 Anion Gap 13.3 BUN 43 H Creatinine 5.7 H* Est GFR ( Amer) TNP Est GFR (Non-Af Amer) TNP BUN/Creatinine Ratio 7.5 Glucose 171 H POC Glucose 203 H Calcium 8.8 Total Bilirubin 0.5 AST 10 L ALT 5 L Alkaline Phosphatase 61 Total Protein 5.4 L Albumin 3.0 L Globulin 2.4 Albumin/Globulin Ratio 1.3 08/05/17 08/05/17 08/05/17 07:23 12:54 17:38 WBC RBC Hgb Hct MCV MCH MCHC Differential RDW Plt Count MPV Neutrophils % Lymphocytes % Monocytes % Eosinophils % Basophils % Sodium Potassium Chloride Carbon Dioxide Anion Gap BUN Creatinine Est GFR ( Amer) Est GFR (Non-Af Amer) BUN/Creatinine Ratio Glucose POC Glucose 159 H 177 H 197 H Calcium Total Bilirubin AST ALT Alkaline Phosphatase Total Protein Albumin Globulin Albumin/Globulin Ratio 08/05/17 23:04 WBC RBC Hgb Hct MCV MCH MCHC Differential RDW Plt Count MPV Neutrophils % Lymphocytes % Monocytes % Eosinophils % Basophils % Sodium Potassium Chloride Carbon Dioxide Anion Gap BUN Creatinine Est GFR ( Amer) Est GFR (Non-Af Amer) BUN/Creatinine Ratio Glucose POC Glucose 161 H Calcium Total Bilirubin AST ALT Alkaline Phosphatase Total Protein Albumin Globulin Albumin/Globulin Ratio Home Medication Medication Instructions Recorded Type Allopurinol 100 mg GT BID 03/20/17 History Aspirin EC [Ecotrin] 81 mg PO DAILY 03/20/17 History Bisacodyl [Dulcolax 5 Mg Ec Tab] 5 MWF 03/20/17 History Bisacodyl [Dulcolax 5 Mg Ec Tab] 10 03/20/17 History Chlorpromazine HCl 25 mg PO Q8H 03/20/17 History Famotidine 20 mg GT DAILY 03/20/17 History Folic Acid/Vit Bcomp,C [Micheline-John 1 tab GT DAILY 03/20/17 History Tablet] Insulin 70/30 [NovoLIN 70/30] 30 units SUBQ MWF 03/20/17 History Insulin 70/30 [NovoLIN 70/30] 40 units SUBQ 03/20/17 History Levothyroxine [Synthroid] 200 mcg PO DAILY 03/20/17 History Ranitidine HCl [Ranitidine*] 150 mg GT DAILY 03/20/17 History Simvastatin [Zocor] 40 mg PO HS 03/20/17 History Sulfamethoxazole/Trimethoprim 1 tab GT BID 03/20/17 History [Sulfamethoxazole-Tmp Ds Tablet] Acetaminophen [Tylenol] 650 mg PO Q6H PRN tab 03/25/17 Rx Enoxaparin [Lovenox] 30 mg SUBQ DAILY syr 03/25/17 Rx Famotidine [Pepcid] 20 mg PO DAILY tab 03/25/17 Rx Lactobacillus Rhamnosus 1 each PO DAILY cap.sprink 03/25/17 Rx [Culturelle] Levothyroxine [Synthroid] 0.2 mg GT QDAC tab 03/25/17 Rx Pantoprazole [Protonix] 40 mg IVP DAILY vial 03/25/17 Rx chlorproMAZINE [Thorazine] 25 mg PO Q8HR PRN tab 03/25/17 Rx cloNIDine HCl [Catapres] 0.1 mg GT Q6HR PRN tab 03/25/17 Rx traMADol HCl [Ultram*] 50 mg PO Q6HR tab 03/25/17 Rx Current Medications Generic Name Dose Route Start Last Admin Trade Name Freq PRN Reason Stop Dose Admin Acetaminophen 650 mg 08/02/17 17:57 Tylenol PO 10/01/17 17:56 Q6H PRN Pain or Fever >101 Albuterol Sulfate 2.5 mg 08/02/17 19:00 08/05/17 19:30 Albuterol 2.5mg/3ml Neb Ud HHN 10/01/17 18:59 2.5 mg Q6HRT [facility] Administration Chlorpromazine 25 mg 08/02/17 18:00 Thorazine PO 10/01/17 17:59 Q8HR PRN Hiccups Protocol Famotidine 20 mg 08/03/17 09:00 08/05/17 08:55 Pepcid GT 10/02/17 08:59 20 mg DAILY [facility] Administration Hydromorphone HCl 1 mg 08/02/17 17:53 08/05/17 23:36 Dilaudid IVP 10/01/17 17:52 1 mg Q4HR PRN Administration Pain (Severe) Meropenem 500 mg/ Sodium 100 mls @ 100 mls/hr 08/06/17 00:00 Chloride IV 10/05/17 00:00 Q24HR [facility] Insulin Aspart 0 units 08/05/17 07:30 08/05/17 23:07 Novolog Insulin Sliding Scale SUBQ 10/04/17 07:29 2 units ACHS SUSAN Administration Protocol Lactobacillus Rhamnosus 1 each 08/04/17 09:00 08/05/17 08:55 Culturelle 15b PO 10/03/17 08:59 1 each DAILY [facility] Administration Levothyroxine Sodium 0.15 mg 08/03/17 14:21 08/05/17 07:24 Synthroid GT 10/02/17 14:20 0.15 mg QDAC [facility] Administration Miscellaneous 1 ea 08/03/17 11:00 Probiotic Screen 10/02/17 10:59 PRN PRN PROTOCOL Miscellaneous 1 ea 08/04/17 13:38 Clinical Monitoring 10/03/17 13:37 PRN PRN RENAL Ondansetron HCl 4 mg 08/02/17 17:56 Zofran IV 10/01/17 17:55 Q6H PRN Nausea / Vomiting Review of Systems: A 12 point ROS was reviewed with the pertinent positive and negatives noted in the HPI. Social History Smoking Status Never smoker Drug Use No Alcohol Use No Family Medical History Family Medical History Start: 08/02/17 17: 25 Freq: ONCE Status: Active Document 08/02/17 18:00 LILIYA (Rec: 08/02/17 19:43 LILIYA [email or web address]) Family Medical History Mother Hx Family Hypertension Yes Hx Family Diabetes Yes Physical Exam: General: Comfortab HEENT: Head: normocephalic, atraimatic. oral cavity moist pink tongue. Eyes pallor present. no icterus. Neck: Supple, no JVD, no carotid bruit. Cardio: S1 and S2 WNL. Respiratory: CTAP Abdominal: soft NT ND BS present. Genital/Urinary: deferred Extremities: 2nd toe amputated with open wound, right great toe absent. surgical dressing. Left BKA. Neurological: AAOx3. No focal neurodeficit. Assessment: 1. gangrene of the right 2nd toe , now s/p amputation. 2. ESBL proteus and Klebsiella infection. 3. CKD 5 on HD. 4. DM2. Plan: change antibiotic to meropenem , which can be changed to invanz 0.5 G ( daily for 7 days) if ok with Dr Sanchez. Dc planning. Signed, Alonso Lee M.D. [id number]
[2017-08-06] MEDS: Albuterol Nebulizer 2.5mg/3mL HHN SCH ×4 (00:50→19:26)
[2017-08-06] MEDS: Meropenem 500 MG in Sodium Chloride 0.9% 100 ML IV SCH (01:50)
[2017-08-06 06:52] LABS: % BASOPHILS 0.4 % (0.0-2.0); % LYMPHOCYTES 15.5 % (20.0-50.0); % MONOCYTES 6.4 % (2.0-10.0); % NEUTROPHILS 72.7 % (40.0-80.0); EOSINOPHILE ABSOLUTE 0.3 Th/cmm (0.1-0.4); HEMATOCRIT 24.9 % (41.0-60); HEMOGLOBIN 8.3 gm/dL (12-16); LYMPHOCYTE ABSOLUTE 1.1 Th/cmm (1.5-3.0); MEAN CELL VOLUME 97.2 fl (80-99); MEAN CORPUSCULAR HEMOGLOBIN 32.3 pg (27.0-31.0); MEAN CORPUSCULAR HGB CONC 33.2 pg (28.0-36.0); MEAN PLATELET VOLUME 7.3 fl; MONOCYTE ABSOLUTE 0.4 Th/cmm (0.3-1.0); NEUTROPHILE ABSOLUTE 5.1 Th/cmm (1.8-8.0); PLATELET COUNT 165 Th/cmm (150-400); RED BLOOD COUNT 2.56 Mil/cmm (3.80-5.80); RED CELL DISTRIBUTION WIDTH 16.4 % (11.5-20.0); WHITE BLOOD COUNT 6.9 Th/cmm (4.8-10.8)
[2017-08-06 07:00] LABS: ALB/GLOB RATIO 1.6 (1.0-1.8); ALBUMIN 3.4 gm/dL (4.2-5.5); ALKALINE PHOSPHATASE 51 U/L (34-104); ANION GAP 10.9 (7.0-16.0); BILIRUBIN,TOTAL 0.6 mg/dL (0.3-1.0); BUN - UREA NITROGEN 27 mg/dL (7-25); CALCIUM SERUM 9.2 mg/dL (8.6-10.3); CARBON DIOXIDE 28.8 mEq/L (21.0-31.0); CHLORIDE 101 mEq/L (98-107); GLUCOSE 108 mg/dL (70-105); POTASSIUM SERUM 3.7 mEq/L (3.5-5.1); SGOT 9 U/L (13-39); SGPT/ALT 6 U/L (7-52); SODIUM SERUM 137 mEq/L (136-145); TOTAL PROTEIN,SERUM 5.6 gm/dL (6.0-8.3)
[2017-08-06] MEDS: Levothyroxine 0.1 Mg Tab GT SCH (07:11)
[2017-08-06 07:40] LABS: CREATININE - SERUM 4.5 mg/dL (0.7-1.3)
--- NOTE | 2017-08-06 08:43 | Diagnostic Imaging Report ---
Portable chest x-ray HISTORY: Shortness of breath, pleural effusion Compared with prior exam of 2017, the heart remains enlarged. Density remains in the left lower hemithorax consistent with a small effusion. There does appear to be degree of pulmonary vascular redistribution suggesting an element of congestive heart failure. IMPRESSION: 1. Persistent cardiomegaly with evidence of a left pleural effusion. Additional changes suggest findings of probable congestive heart failure. Clinical correlation is needed.
[2017-08-06] MEDS: INSULIN ASPART SLIDING SCALE 100 UNITS/ML UNIT SUBQ SCH ×4 (09:41→22:01)
[2017-08-06] MEDS: Lactobacillus Rhamnosus GG 15 Billion CFU CAP.SPRINK PO SCH (09:42)
[2017-08-06 12:55] LABS: CREATININE - SERUM 5.7 mg/dL (0.7-1.3)
--- NOTE | 2017-08-06 15:10 | General Progress Note ---
Subjective - Review of Systems Service Date: 08/06/17 Subjective: I am ok. Objective - Results Result Diagrams: 08/06/17 06:11 08/06/17 06:11 Recent Labs: Laboratory Last Values WBC 6.9 Th/cmm (4.8-10.8) 08/06/17 06:11 RBC 2.56 Mil/cmm (3.80-5.80) L 08/06/17 06:11 Hgb 8.3 gm/dL (12-16) L 08/06/17 06:11 Hct 24.9 % (41.0-60) L 08/06/17 06:11 MCV 97.2 fl (80-99) 08/06/17 06:11 MCH 32.3 pg (27.0-31.0) H 08/06/17 06:11 MCHC Differential 33.2 pg (28.0-36.0) 08/06/17 06:11 RDW 16.4 % (11.5-20.0) 08/06/17 06:11 Plt Count 165 Th/cmm (150-400) 08/06/17 06:11 MPV 7.3 fl 08/06/17 06:11 Neutrophils % 72.7 % (40.0-80.0) 08/06/17 06:11 Lymphocytes % 15.5 % (20.0-50.0) L 08/06/17 06:11 Monocytes % 6.4 % (2.0-10.0) 08/06/17 06:11 Eosinophils % 5.0 % (0.0-5.0) 08/06/17 06:11 Basophils % 0.4 % (0.0-2.0) 08/06/17 06:11 PT 12.2 SECONDS (9.5-11.5) H 08/03/17 06:36 INR 1.16 (0.5-1.4) 08/03/17 06:36 PTT (Actin FS) 36.8 SECONDS (26.0-38.0) 08/03/17 06:36 Sodium 137 mEq/L (136-145) 08/06/17 06:11 Potassium 3.7 mEq/L (3.5-5.1) 08/06/17 06:11 Chloride 101 mEq/L (98-107) 08/06/17 06:11 Carbon Dioxide 28.8 mEq/L (21.0-31.0) 08/06/17 06:11 Anion Gap 10.9 (7.0-16.0) 08/06/17 06:11 BUN 27 mg/dL (7-25) H 08/06/17 06:11 Creatinine 4.5 mg/dL (0.7-1.3) H* 08/06/17 06:11 Est GFR ( Amer) TNP 08/06/17 06:11 Est GFR (Non-Af Amer) TNP 08/06/17 06:11 BUN/Creatinine Ratio 6.0 08/06/17 06:11 Glucose 108 mg/dL (70-105) H 08/06/17 06:11 POC Glucose 119 MG/DL (70 - 105) H 08/06/17 11:54 Hemoglobin A1c % 7.6 % (4.0-6.0) H 08/02/17 17:50 Calcium 9.2 mg/dL (8.6-10.3) 08/06/17 06:11 Total Bilirubin 0.6 mg/dL (0.3-1.0) 08/06/17 06:11 AST 9 U/L (13-39) L 08/06/17 06:11 ALT 6 U/L (7-52) L 08/06/17 06:11 Alkaline Phosphatase 51 U/L (34-104) 08/06/17 06:11 B-Natriuretic Peptide 1840.0 pg/mL (5.0-100.0) H 08/04/17 05:20 Total Protein 5.6 gm/dL (6.0-8.3) L 08/06/17 06:11 Albumin 3.4 gm/dL (4.2-5.5) L 08/06/17 06:11 Globulin 2.2 gm/dL 08/06/17 06:11 Albumin/Globulin Ratio 1.6 (1.0-1.8) 08/06/17 06:11 TSH 0.11 uIU/ml (0.34-5.60) L 08/03/17 06:36 - Physical Exam Vitals and I&O: Vital Signs Temp 98.4 F 08/06/17 04:00 Pulse 106 08/06/17 14:03 Resp 18 08/06/17 14:03 BP 154/77 08/06/17 04:00 Pulse Ox 98 08/06/17 14:03 Intake & Output 08/05/17 08/06/17 08/06/17 18:59 06:59 18:59 Intake Total 50 200 Output Total 2500 Balance 50 -2300 Weight (lbs) 66.678 kg Intake: Intake, IV Amount 50 100 Meropenem 500 mg In 100 Sodium Chloride 0.9% 100 ml @ 100 mls/hr IV Q24HR [facility] Rx#:[id number] cefTRIAXone 1 gm In 50 Sodium Chloride 0.9% 50 ml @ 100 mls/hr IV X1 ONE Rx#:[id number] Oral 100 Output: Urine/Stool Mix 0 Hemodialysis 2500 Active Medications: Current Medications Acetaminophen (Tylenol) 650 mg PO Q6H PRN PRN Reason: Pain or Fever >101 Stop: 10/01/17 17:56 Albuterol Sulfate (Albuterol 2.5mg/3ml Neb Ud) 2.5 mg HHN Q6HRT [facility] Stop: 10/01/17 18:59 Last Admin: 08/06/17 14:01 Dose: 2.5 mg Chlorpromazine (Thorazine) 25 mg PO Q8HR PRN; Protocol PRN Reason: Hiccups Stop: 10/01/17 17:59 Famotidine (Pepcid) 20 mg GT DAILY [facility] Stop: 10/02/17 08:59 Last Admin: 08/06/17 09:42 Dose: 20 mg Hydromorphone HCl (Dilaudid) 1 mg IVP Q4HR PRN PRN Reason: Pain (Severe) Stop: 10/01/17 17:52 Last Admin: 08/05/17 23:36 Dose: 1 mg Meropenem 500 mg/ Sodium (Chloride) 100 mls @ 100 mls/hr IV Q24HR [facility] Stop: 10/05/17 00:00 Last Infusion: 08/06/17 02:50 Dose: Infused Insulin Aspart (Novolog Insulin Sliding Scale) 0 units SUBQ ACHS [facility] PRN Reason: Protocol Stop: 10/04/17 07:29 Last Admin: 08/06/17 12:19 Dose: Not Given Lactobacillus Rhamnosus (Culturelle 15b) 1 each PO DAILY [facility] Stop: 10/03/17 08:59 Last Admin: 08/06/17 09:42 Dose: 1 each Levothyroxine Sodium (Synthroid) 0.15 mg GT QDAC [facility] Stop: 10/02/17 14:20 Last Admin: 08/06/17 07:11 Dose: 0.15 mg Miscellaneous (Probiotic Screen) 1 ea PRN PRN PRN Reason: PROTOCOL Stop: 10/02/17 10:59 Miscellaneous (Clinical Monitoring) 1 [facility] PRN PRN PRN Reason: RENAL Stop: 10/03/17 13:37 Ondansetron HCl (Zofran) 4 mg IV Q6H PRN PRN Reason: Nausea / Vomiting Stop: 10/01/17 17:55 General: Alert, Oriented x3, Cooperative, No acute distress HEENT: Atraumatic, Mucous membr. moist/pink Neck: Supple, +2 carotid pulse wo bruit Cardiovascular: Regular rate, Normal S1, Normal S2 (decrease BS) Lungs: Other (few rhonchi) Abdomen: Bowel sounds, Soft Extremities: Other (BK Amputation of left leg, right foot with gauze) Neurological: Sensation intact Skin: no Rash Psych/Mental Status: Mood NL - Procedures Procedures: Procedures Procedure Code Date AMPUTATION OF LOWER LEG 74302 03/20/17 AMPUTATION OF TOE 39746 08/02/17 CATARAC PHACOEMULS/ASPIR 13.41 02/11/10 CATARACT SURG W/IOL 1 STAGE 40941 02/11/10 CHANGE FEEDING DEVICE IN UP INTEST TRACT, BUS MECHANIC APPROACH [id number] 03/20/17 CHANGE GASTROSTOMY TUBE 05028 03/20/17 DETACHMENT AT LEFT LOWER LEG, HIGH, OPEN APPROACH [id number] 03/20/17 DETACHMENT AT RIGHT 1ST TOE, COMPLETE, OPEN APPROACH [id number] 03/20/17 DETACHMENT AT RIGHT 2ND TOE, MID, OPEN APPROACH [id number] 08/02/17 INSERT LENS AT CATAR EXT 13.71 02/11/10 PERFORMANCE OF URINARY FILTRATION, MULTIPLE [id number] 03/20/17 Assessment/Plan - Assessment Assessment: Patient is awake, alert, calm, in no acute distress. HD was done yesterday. BNP is high. Dx: Gangren of second right toe S/P toe amputation, Plural effusion , ERSD on HD, PVD, CHF, DM, HTN, Gout, S/P BK amputation of left leg, S/P amputation of right big toe. - Plan Plan: NS lock, meropenem, Pain management, Continue with home meds, Insulin Sliding scale. Amputation was done. Patient follow by Surgeon, ID and Nerphrology. Consult with cardiology is requested. Will continue to monitor. Nutritional Asmnt/Malnutr-PDOC - Dietary Evaluation Malnutrition Findings (Please click <Entered> for more info): Nutritional Asmnt/Malnutrition Start: 08/03/17 17: 46 Text: Status: Complete Freq: Document 08/03/17 17:46 [facility] (Rec: 08/03/17 17:58 HEN [email or web address]) Nutritional Asmnt/Malnutrition Patient General Information Nutritional Screening High Risk Consult Diagnosis gangrene right foot Pertinent Medical Hx/Surgical Hx PVD, s/p BKA left, right big toe, CAD, CHF, HTN, Chronic renal failure, ESRD on HD, weakness Subjective Information Consult received for elevated BS. Pt having surgery for secomd toe amputation at time of visit, not able to visit pt . Current Diet Order/ Nutrition Support NPO Pertinent Medications novolog, culturelle, synthroid Pertinent Labs 08/03 Na 143, K 3.4, Cl 104, BUN 33, Cr 4.0, Glucose 117, POC 123-198, 08/02 A1c 7.6 Nutritional Hx/Data Height 1.63 m Height (Calculated Centimeters) 162.6 Current Weight (lbs) 67.132 kg Weight (Calculated Kilograms) 67.1 Weight (Calculated Grams) 81587.7 [place]elia Body Weight 120 % Cornelia Body Weight 123 Body Mass Index (BMI) 25.4 Weight Status Overweight GI Symptoms GI Symptoms None Last BM 0 Difficult in: None Skin Integrity/Comment: SCARS IN MULTIPLE BODY PARTS ulceration to right second toe Estimated Nutritional Goals BEE in Kcals: Using Current wt Calories/Kcals/Kg 25-30 Kcals Calculated 0699-0213 Protein: Using Current wt Protein g/k-1.2 Protein Calculated 61-73 Fluid: ml 1675-1830ml (1ml/kcal) Nutritional Problem 2. Problem Problem increased nutrition needs ( calorie and protein) Etiology increased metabolic demand for wound healing Signs/Symptoms: ulceration and s/p amputation 1. Problem Problem altered nutrition realted lab values Etiology hx of DM Signs/Symptoms: Glucose 117, POC 123-198, A1c 7.6 Malnutrition Alert Protein-Calorie Malnutrition N/A Is there a minimum of two criteria No selected? Query Text:Check all the applicable criteria. A minimum of two criteria are recommended for diagnosis of either severe or non-severe malnutrition. Intervention/Recommendation Comments 1. Advance diet as tolerated. Recommend CCHO-60gm diet. 2. Monitor PO intake, wt, labs and skin integrity 3. F/U as moderate risk in 3-5 days, PO check 08/04 Expected Outcomes/Goals Expected Outcomes/Goals 1. PO intake to meet at least 75% of nutritional needs. 2. Wt stability, skin to remain intact, labs to approach WNL.
--- NOTE | 2017-08-06 16:03 | General Progress Note ---
Subjective - Review of Systems Service Date: 08/06/17 Subjective: awake, comfortable Objective - Results Result Diagrams: 08/06/17 06:11 08/06/17 06:11 Recent Labs: Laboratory Last Values WBC 6.9 Th/cmm (4.8-10.8) 08/06/17 06:11 RBC 2.56 Mil/cmm (3.80-5.80) L 08/06/17 06:11 Hgb 8.3 gm/dL (12-16) L 08/06/17 06:11 Hct 24.9 % (41.0-60) L 08/06/17 06:11 MCV 97.2 fl (80-99) 08/06/17 06:11 MCH 32.3 pg (27.0-31.0) H 08/06/17 06:11 MCHC Differential 33.2 pg (28.0-36.0) 08/06/17 06:11 RDW 16.4 % (11.5-20.0) 08/06/17 06:11 Plt Count 165 Th/cmm (150-400) 08/06/17 06:11 MPV 7.3 fl 08/06/17 06:11 Neutrophils % 72.7 % (40.0-80.0) 08/06/17 06:11 Lymphocytes % 15.5 % (20.0-50.0) L 08/06/17 06:11 Monocytes % 6.4 % (2.0-10.0) 08/06/17 06:11 Eosinophils % 5.0 % (0.0-5.0) 08/06/17 06:11 Basophils % 0.4 % (0.0-2.0) 08/06/17 06:11 PT 12.2 SECONDS (9.5-11.5) H 08/03/17 06:36 INR 1.16 (0.5-1.4) 08/03/17 06:36 PTT (Actin FS) 36.8 SECONDS (26.0-38.0) 08/03/17 06:36 Sodium 137 mEq/L (136-145) 08/06/17 06:11 Potassium 3.7 mEq/L (3.5-5.1) 08/06/17 06:11 Chloride 101 mEq/L (98-107) 08/06/17 06:11 Carbon Dioxide 28.8 mEq/L (21.0-31.0) 08/06/17 06:11 Anion Gap 10.9 (7.0-16.0) 08/06/17 06:11 BUN 27 mg/dL (7-25) H 08/06/17 06:11 Creatinine 4.5 mg/dL (0.7-1.3) H* 08/06/17 06:11 Est GFR ( Amer) TNP 08/06/17 06:11 Est GFR (Non-Af Amer) TNP 08/06/17 06:11 BUN/Creatinine Ratio 6.0 08/06/17 06:11 Glucose 108 mg/dL (70-105) H 08/06/17 06:11 POC Glucose 119 MG/DL (70 - 105) H 08/06/17 11:54 Hemoglobin A1c % 7.6 % (4.0-6.0) H 08/02/17 17:50 Calcium 9.2 mg/dL (8.6-10.3) 08/06/17 06:11 Total Bilirubin 0.6 mg/dL (0.3-1.0) 08/06/17 06:11 AST 9 U/L (13-39) L 08/06/17 06:11 ALT 6 U/L (7-52) L 08/06/17 06:11 Alkaline Phosphatase 51 U/L (34-104) 08/06/17 06:11 B-Natriuretic Peptide 1840.0 pg/mL (5.0-100.0) H 08/04/17 05:20 Total Protein 5.6 gm/dL (6.0-8.3) L 08/06/17 06:11 Albumin 3.4 gm/dL (4.2-5.5) L 08/06/17 06:11 Globulin 2.2 gm/dL 08/06/17 06:11 Albumin/Globulin Ratio 1.6 (1.0-1.8) 08/06/17 06:11 TSH 0.11 uIU/ml (0.34-5.60) L 08/03/17 06:36 - Physical Exam Vitals and I&O: Vital Signs Temp 98.4 F 08/06/17 04:00 Pulse 106 08/06/17 14:03 Resp 18 08/06/17 14:03 BP 154/77 08/06/17 04:00 Pulse Ox 98 08/06/17 14:03 Intake & Output 08/05/17 08/06/17 08/06/17 18:59 06:59 18:59 Intake Total 50 200 Output Total 2500 Balance 50 -2300 Weight (lbs) 66.678 kg Intake: Intake, IV Amount 50 100 Meropenem 500 mg In 100 Sodium Chloride 0.9% 100 ml @ 100 mls/hr IV Q24HR [facility] Rx#:[id number] cefTRIAXone 1 gm In 50 Sodium Chloride 0.9% 50 ml @ 100 mls/hr IV X1 ONE Rx#:[id number] Oral 100 Output: Urine/Stool Mix 0 Hemodialysis 2500 Active Medications: Current Medications Acetaminophen (Tylenol) 650 mg PO Q6H PRN PRN Reason: Pain or Fever >101 Stop: 10/01/17 17:56 Albuterol Sulfate (Albuterol 2.5mg/3ml Neb Ud) 2.5 mg HHN Q6HRT [facility] Stop: 10/01/17 18:59 Last Admin: 08/06/17 14:01 Dose: 2.5 mg Chlorpromazine (Thorazine) 25 mg PO Q8HR PRN; Protocol PRN Reason: Hiccups Stop: 10/01/17 17:59 Famotidine (Pepcid) 20 mg GT DAILY [facility] Stop: 10/02/17 08:59 Last Admin: 08/06/17 09:42 Dose: 20 mg Hydromorphone HCl (Dilaudid) 1 mg IVP Q4HR PRN PRN Reason: Pain (Severe) Stop: 10/01/17 17:52 Last Admin: 08/05/17 23:36 Dose: 1 mg Meropenem 500 mg/ Sodium (Chloride) 100 mls @ 100 mls/hr IV Q24HR [facility] Stop: 10/05/17 00:00 Last Infusion: 08/06/17 02:50 Dose: Infused Insulin Aspart (Novolog Insulin Sliding Scale) 0 units SUBQ ACHS [facility]USAN PRN Reason: Protocol Stop: 10/04/17 07:29 Last Admin: 08/06/17 12:19 Dose: Not Given Lactobacillus Rhamnosus (Culturelle 15b) 1 each PO DAILY [facility] Stop: 10/03/17 08:59 Last Admin: 08/06/17 09:42 Dose: 1 each Levothyroxine Sodium (Synthroid) 0.15 mg GT QDAC [facility] Stop: 10/02/17 14:20 Last Admin: 08/06/17 07:11 Dose: 0.15 mg Miscellaneous (Probiotic Screen) 1 ea PRN PRN PRN Reason: PROTOCOL Stop: 10/02/17 10:59 Miscellaneous (Clinical Monitoring) 1 ea PRN PRN PRN Reason: RENAL Stop: 10/03/17 13:37 Ondansetron HCl (Zofran) 4 mg IV Q6H PRN PRN Reason: Nausea / Vomiting Stop: 10/01/17 17:55 General: Alert, Oriented x3, Cooperative, No acute distress HEENT: Atraumatic, Mucous membr. moist/pink Neck: Supple, +2 carotid pulse wo bruit Cardiovascular: Regular rate, Normal S1, Normal S2 (decrease BS) Lungs: Other (few rhonchi) Abdomen: Bowel sounds, Soft Extremities: Other (BK Amputation of left leg, right foot with gauze) Neurological: Sensation intact Skin: no Rash Psych/Mental Status: Mood NL - Procedures Procedures: Procedures Procedure Code Date AMPUTATION OF LOWER LEG 63161 03/20/17 AMPUTATION OF TOE 71190 08/02/17 CATARAC PHACOEMULS/ASPIR 13.41 02/11/10 CATARACT SURG W/IOL 1 STAGE 25440 02/11/10 CHANGE FEEDING DEVICE IN UP INTEST TRACT, TRANSACTION ADVISORY SERVICES MANAGER APPROACH [id number] 03/20/17 CHANGE GASTROSTOMY TUBE 35673 03/20/17 DETACHMENT AT LEFT LOWER LEG, HIGH, OPEN APPROACH [id number] 03/20/17 DETACHMENT AT RIGHT 1ST TOE, COMPLETE, OPEN APPROACH [id number] 03/20/17 DETACHMENT AT RIGHT 2ND TOE, MID, OPEN APPROACH [id number] 08/02/17 INSERT LENS AT CATAR EXT 13.71 02/11/10 PERFORMANCE OF URINARY FILTRATION, MULTIPLE [id number] 03/20/17 Assessment/Plan - Assessment Assessment: ESRD on HD PAD S/P Amputation right 2nd digit, S/P BKA Ess Htn Type 2 DM Morbid Obesity CAD Hypothyroid - Plan Plan: Lab - Result Diagrams 08/04/17 05:20 08/04/17 05:20 Current Medications Acetaminophen (Tylenol) 650 mg PO Q6H PRN PRN Reason: Pain or Fever >101 Stop: 10/01/17 17:56 Albuterol Sulfate (Albuterol 2.5mg/3ml Neb Ud) 2.5 mg HHN Q6HRT [facility] Stop: 10/01/17 18:59 Last Admin: 08/04/17 12:48 Dose: 2.5 mg Chlorpromazine (Thorazine) 25 mg PO Q8HR PRN; Protocol PRN Reason: Hiccups Stop: 10/01/17 17:59 Famotidine (Pepcid) 20 mg GT DAILY [facility] Stop: 10/02/17 08:59 Last Admin: 08/04/17 09:02 Dose: 20 mg Hydromorphone HCl (Dilaudid) 1 mg IVP Q4HR PRN PRN Reason: Pain (Severe) Stop: 10/01/17 17:52 Last Admin: 08/04/17 00:15 Dose: 1 mg Ceftriaxone Sodium 1 gm/ (Sodium Chloride) 50 mls @ 100 mls/hr IV Q24HR [facility] Stop: 10/01/17 17:59 Last Infusion: 08/03/17 17:41 Dose: Infused Insulin Aspart (Novolog Insulin Sliding Scale) 0 units SUBQ Q6HR [facility] PRN Reason: Protocol Stop: 10/01/17 17:59 Last Admin: 08/04/17 12:08 Dose: 2 units Lactobacillus Rhamnosus (Culturelle 15b) 1 each PO DAILY [facility] Stop: 10/02/17 08:59 Last Admin: 08/04/17 09:02 Dose: 1 each Lactobacillus Rhamnosus (Culturelle 15b) 1 each PO DAILY [facility] Stop: 10/03/17 08:59 Last Admin: 08/04/17 09:03 Dose: Not Given Levothyroxine Sodium (Synthroid) 0.15 mg GT QDAC [facility] Stop: 10/02/17 14:20 Last Admin: 08/04/17 09:02 Dose: 0.15 mg Miscellaneous (Probiotic Screen) 1 ea MC PRN PRN PRN Reason: PROTOCOL Stop: 10/02/17 10:59 Miscellaneous (Clinical Monitoring) 1 ea MC PRN PRN PRN Reason: RENAL Stop: 10/03/17 13:37 Ondansetron HCl (Zofran) 4 mg IV Q6H PRN PRN Reason: Nausea / Vomiting Stop: 10/01/17 17:55 Lab - Result Diagrams 08/06/17 06:11 08/06/17 06:11 completed dialysis last nite & giles 2.5L UF schedule again got HD in am discussed w/ daughter @ bedside Nutritional Asmnt/Malnutr-PDOC - Dietary Evaluation Malnutrition Findings (Please click <Entered> for more info): Nutritional Asmnt/Malnutrition Start: 08/03/17 17: 46 Text: Status: Complete Freq: Document 08/03/17 17:46 HEN (Rec: 08/03/17 17:58 [email or web address] [id number]) Nutritional Asmnt/Malnutrition Patient General Information Nutritional Screening High Risk Consult Diagnosis gangrene right foot Pertinent Medical Hx/Surgical Hx PVD, s/p BKA left, right big toe, CAD, CHF, HTN, Chronic renal failure, ESRD on HD, weakness Subjective Information Consult received for elevated BS. Pt having surgery for secomd toe amputation at time of visit, not able to visit pt . Current Diet Order/ Nutrition Support NPO Pertinent Medications novolog, culturelle, synthroid Pertinent Labs 08/03 Na 143, K 3.4, Cl 104, BUN 33, Cr 4.0, Glucose 117, POC 123-198, 2 A1c 7.6 Nutritional Hx/Data Height 1.63 m Height (Calculated Centimeters) 162.6 Current Weight (lbs) 67.132 kg Weight (Calculated Kilograms) 67.1 Weight (Calculated Grams) 41108.7 [place] Body Weight 120 % [place] Body Weight 123 Body Mass Index (BMI) 25.4 Weight Status Overweight GI Symptoms GI Symptoms None Last BM 0 Difficult in: None Skin Integrity/Comment: SCARS IN MULTIPLE BODY PARTS ulceration to right second toe Estimated Nutritional Goals BEE in Kcals: Using Current wt Calories/Kcals/Kg 25-30 Kcals Calculated 5837-5212 Protein: Using Current wt Protein g/k-1.2 Protein Calculated 61-73 Fluid: ml 1675-1830ml (1ml/kcal) Nutritional Problem 2. Problem Problem increased nutrition needs ( calorie and protein) Etiology increased metabolic demand for wound healing Signs/Symptoms: ulceration and s/p amputation 1. Problem Problem altered nutrition realted lab values Etiology hx of DM Signs/Symptoms: Glucose 117, POC 123-198, A1c 7.6 Malnutrition Alert Protein-Calorie Malnutrition N/A Is there a minimum of two criteria No selected? Query Text:Check all the applicable criteria. A minimum of two criteria are recommended for diagnosis of either severe or non-severe malnutrition. Intervention/Recommendation Comments 1. Advance diet as tolerated. Recommend CCHO-60gm diet. 2. Monitor PO intake, wt, labs and skin integrity 3. F/U as moderate risk in 3-5 days, PO check 08/04 Expected Outcomes/Goals Expected Outcomes/Goals 1. PO intake to meet at least 75% of nutritional needs. 2. Wt stability, skin to remain intact, labs to approach WNL.
[2017-08-07] MEDS: HYDROmorphone 1 mg/mL 1mL Syr IVP PRN (00:02)
[2017-08-07] MEDS: Meropenem 500 MG in Sodium Chloride 0.9% 100 ML IV SCH (00:03)
[2017-08-07] MEDS: Albuterol Nebulizer 2.5mg/3mL HHN SCH ×3 (00:59→12:16)
[2017-08-07] MEDS ORDERED: Linezolid 600mg/300mL 600 MG/300 ML BAG IV SCH ×2 (03:00→09:30)
--- NOTE | 2017-08-07 05:31 | Consultation ---
DATE OF CONSULTATION: 08/06/2017 HISTORY OF PRESENT ILLNESS: This 82-year-old male was seen and examined at the courtesy of Dr. Valenzuela. The patient was admitted here with gangrenous right second toe with abscess. The patient does have a history of multiple other problems including coronary artery disease status post coronary artery bypass surgery; history of CHF; history of hypertension; history of diabetes mellitus, on insulin; end-stage renal disease, on hemodialysis; also has history of peripheral vascular disease with status post amputation of the right big toe and status post below-knee amputation of the left lower extremity and now has gangrenous second right toe with abscess. The patient also has history of gout and denied any history of chest pain. There was no history of shortness of breath, no history of PND, no history of orthopnea, no history of cough, no history of fever, no history of hemoptysis, no history of abdominal pain, no history of nausea or vomiting, no history of hematemesis, no history of melena, no history of bleeding per rectum, no history of change in bowel habits, no history of dizziness, no history of syncope, and no history of seizures. PAST MEDICAL HISTORY: As mentioned above. SOCIAL HISTORY: The patient is not a smoker, not a drinker. FAMILY HISTORY: Lives with family. PHYSICAL EXAMINATION: VITAL SIGNS: The heart rate was 100, blood pressure was 159/70, respirations 20, and temperature 98.7. SKIN: Normal. HEAD: Normocephalic. EYES: Conjunctivae were pink. There is no icterus in the eyes. Pupils are equally reactive to light. NECK: There was no increased jugular venous distention. No thyromegaly. No lymphadenopathy. Carotids equal on both sides. CHEST: Bilaterally symmetrical, moved well with respiration. Respiratory movements equal on both sides. Trachea is central. There is note to percussion. Breath sounds, few scattered rales. CARDIOVASCULAR SYSTEM: PMI not well localized. There is no pulsation or thrill. No parasternal heave. S1 normal. S2 physiologic. There was no S3, no rub. ABDOMEN: Soft, no tenderness, no rigidity, no guarding, no organomegaly. Bowel sounds normal. LABORATORY DATA AND DIAGNOSTIC STUDIES: Reviewed all the available labs, EKG, and x-rays. IMPRESSION: Coronary artery disease status post coronary artery bypass surgery; hypertension; congestive heart failure; diabetes mellitus; end-stage renal disease, on hemodialysis; peripheral vascular disease; gangrene and abscess of the right second toe status post amputation of the right big toe, status post below-knee amputation of the left; history of gout, status post incision and drainage of the right second toe abscess site. Suggest to continue present management. The patient is already being followed by vascular surgeon. Arterial Doppler study may be done to evaluate the anatomy of the lower extremity vasculature, also to get echocardiogram to evaluate left ventricular function and valvular structure and also get thyroid-stimulating hormone and lipid profile. Also, the patient should be on some anticoagulation and also should be on statins, ARB, beta nathalie that should be able to control the blood pressure also. Further recommendation will be made depending on the rest of tests available. The patient will be followed by Dr. Fidelina Lee now. JOB# [id number]
[2017-08-07] MEDS: Levothyroxine 0.1 Mg Tab GT SCH (06:51)
[2017-08-07 07:05] LABS: % BASOPHILS 0.5 % (0.0-2.0); % EOSINOPHILS 5.2 % (0.0-5.0); % LYMPHOCYTES 15.4 % (20.0-50.0); % MONOCYTES 6.2 % (2.0-10.0); % NEUTROPHILS 72.7 % (40.0-80.0); EOSINOPHILE ABSOLUTE 0.4 Th/cmm (0.1-0.4); HEMATOCRIT 26.6 % (41.0-60); HEMOGLOBIN 8.8 gm/dL (12-16); LYMPHOCYTE ABSOLUTE 1.2 Th/cmm (1.5-3.0); MEAN CELL VOLUME 96.2 fl (80-99); MEAN CORPUSCULAR HEMOGLOBIN 31.7 pg (27.0-31.0); MEAN CORPUSCULAR HGB CONC 32.9 pg (28.0-36.0); MEAN PLATELET VOLUME 7.1 fl; MONOCYTE ABSOLUTE 0.5 Th/cmm (0.3-1.0); NEUTROPHILE ABSOLUTE 5.9 Th/cmm (1.8-8.0); RED BLOOD COUNT 2.77 Mil/cmm (3.80-5.80); RED CELL DISTRIBUTION WIDTH 15.5 % (11.5-20.0)
[2017-08-07 07:10] LABS: PLATELET COUNT 201 Th/cmm (150-400)
[2017-08-07 07:20] LABS: ALB/GLOB RATIO 1.3 (1.0-1.8); ALBUMIN 3.2 gm/dL (4.2-5.5); ALKALINE PHOSPHATASE 53 U/L (34-104); ANION GAP 14.9 (7.0-16.0); BILIRUBIN,TOTAL 0.5 mg/dL (0.3-1.0); BUN - UREA NITROGEN 36 mg/dL (7-25); CALCIUM SERUM 9.2 mg/dL (8.6-10.3); CARBON DIOXIDE 27.2 mEq/L (21.0-31.0); CHLORIDE 97 mEq/L (98-107); GLUCOSE 228 mg/dL (70-105); POTASSIUM SERUM 4.1 mEq/L (3.5-5.1); SGOT 13 U/L (13-39); SGPT/ALT 9 U/L (7-52); SODIUM SERUM 135 mEq/L (136-145); TOTAL PROTEIN,SERUM 5.6 gm/dL (6.0-8.3)
[2017-08-07 07:28] LABS: CREATININE - SERUM 6.8 mg/dL (0.7-1.3)
[2017-08-07] MEDS: INSULIN ASPART SLIDING SCALE 100 UNITS/ML UNIT SUBQ SCH ×2 (07:54→12:52)
--- NOTE | 2017-08-07 08:38 | Discharge Summary ---
General Discharge Summary - Discharge Summary Date of Admission: 08/02/17 Admitting Diagnosis: Gangrene, ESRD on HD, PVD, CHF, DM, HTN, Gout, S/P BK amputation of left le Discharge Date: 08/07/17 Discharge Diagnosis: Gangrene of right second toe, S/P amputation of right second toe, cellulitis of right foot, ESRD, PVD, CHF, DM, HTN, Gout, S/P BK amputation of left leg, S/P amputation of first and second right toes. Laboratory Findings: Laboratory Results - last 24 hr 08/05/17 08/06/17 08/06/17 06:04 11:54 17:18 WBC RBC Hgb Hct MCV MCH MCHC Differential RDW Plt Count MPV Neutrophils % Lymphocytes % Monocytes % Eosinophils % Basophils % Sodium Potassium Chloride Carbon Dioxide Anion Gap BUN Creatinine 5.7 H* Est GFR ( Amer) Est GFR (Non-Af Amer) BUN/Creatinine Ratio Glucose POC Glucose 119 H 152 H Calcium Total Bilirubin AST ALT Alkaline Phosphatase Total Protein Albumin Globulin Albumin/Globulin Ratio 08/06/17 08/07/17 08/07/17 22:00 06:49 06:50 WBC 8.0 RBC 2.77 L Hgb 8.8 L Hct 26.6 L MCV 96.2 MCH 31.7 H MCHC Differential 32.9 RDW 15.5 Plt Count 201 D MPV 7.1 Neutrophils % 72.7 Lymphocytes % 15.4 L Monocytes % 6.2 Eosinophils % 5.2 H Basophils % 0.5 Sodium Potassium Chloride Carbon Dioxide Anion Gap BUN Creatinine Est GFR ( Amer) Est GFR (Non-Af Amer) BUN/Creatinine Ratio Glucose POC Glucose 203 H 216 H Calcium Total Bilirubin AST ALT Alkaline Phosphatase Total Protein Albumin Globulin Albumin/Globulin Ratio 08/07/17 06:50 WBC RBC Hgb Hct MCV MCH MCHC Differential RDW Plt Count MPV Neutrophils % Lymphocytes % Monocytes % Eosinophils % Basophils % Sodium 135 L Potassium 4.1 Chloride 97 L Carbon Dioxide 27.2 Anion Gap 14.9 BUN 36 H Creatinine 6.8 H* Est GFR ( Amer) TNP Est GFR (Non-Af Amer) TNP BUN/Creatinine Ratio 5.3 Glucose 228 H POC Glucose Calcium 9.2 Total Bilirubin 0.5 AST 13 ALT 9 Alkaline Phosphatase 53 Total Protein 5.6 L Albumin 3.2 L Globulin 2.4 Albumin/Globulin Ratio 1.3 Hospital Course: Patient was admitted and amputation of second toe done, he developed pleural effusion and had some fever, he improved and was discharge home with IV antibiotics. Treatment: Patient was admitted and amputation of second toe was done, he was started in ceftriaxone but was change for meropenem, He had HD 2 times, Breathing treatment , Insulin sliding scale, continue with home meds. He was seen by Surgeon, Nephro, cardio and ID. Condition at Discharge: Stable Disposition: Other Care w/in this hosp Home Medications: Home Medication Medication Instructions Recorded Type Allopurinol 100 mg GT BID 03/20/17 History Aspirin EC [Ecotrin] 81 mg PO DAILY 03/20/17 History Bisacodyl [Dulcolax 5 Mg Ec Tab] 5 MWF 03/20/17 History Bisacodyl [Dulcolax 5 Mg Ec Tab] 10 03/20/17 History Chlorpromazine HCl 25 mg PO Q8H 03/20/17 History Famotidine 20 mg GT DAILY 03/20/17 History Folic Acid/Vit Bcomp,C [Micheline-John 1 tab GT DAILY 03/20/17 History Tablet] Insulin 70/30 [NovoLIN 70/30] 30 units SUBQ MWF 03/20/17 History Insulin 70/30 [NovoLIN 70/30] 40 units SUBQ 03/20/17 History Levothyroxine [Synthroid] 200 mcg PO DAILY 03/20/17 History Ranitidine HCl [Ranitidine*] 150 mg GT DAILY 03/20/17 History Simvastatin [Zocor] 40 mg PO HS 03/20/17 History Sulfamethoxazole/Trimethoprim 1 tab GT BID 03/20/17 History [Sulfamethoxazole-Tmp Ds Tablet] Acetaminophen [Tylenol] 650 mg PO Q6H PRN tab 03/25/17 Rx Enoxaparin [Lovenox] 30 mg SUBQ DAILY syr 03/25/17 Rx Famotidine [Pepcid] 20 mg PO DAILY tab 03/25/17 Rx Lactobacillus Rhamnosus 1 each PO DAILY cap.[email or web address] 03/25/17 Rx [Culturelle] Levothyroxine [Synthroid] 0.2 mg GT QDAC tab 03/25/17 Rx Pantoprazole [Protonix] 40 mg IVP DAILY vial 03/25/17 Rx chlorproMAZINE [Thorazine] 25 mg PO Q8HR PRN tab 03/25/17 Rx cloNIDine HCl [Catapres] 0.1 mg GT Q6HR PRN tab 03/25/17 Rx traMADol HCl [Ultram*] 50 mg PO Q6HR tab 03/25/17 Rx Inpatient Medications: Current Medications Acetaminophen (Tylenol) 650 mg PO Q6H PRN PRN Reason: Pain or Fever >101 Stop: 10/01/17 17:56 Albuterol Sulfate (Albuterol 2.5mg/3ml Neb Ud) 2.5 mg HHN Q6HRT [facility] Stop: 10/01/17 18:59 Last Admin: 08/07/17 07:16 Dose: 2.5 mg Chlorpromazine (Thorazine) 25 mg PO Q8HR PRN; Protocol PRN Reason: Hiccups Stop: 10/01/17 17:59 Famotidine (Pepcid) 20 mg GT DAILY [facility] Stop: 10/02/17 08:59 Last Admin: 08/06/17 09:42 Dose: 20 mg Hydromorphone HCl (Dilaudid) 1 mg IVP Q4HR PRN PRN Reason: Pain (Severe) Stop: 10/01/17 17:52 Last Admin: 08/07/17 00:02 Dose: 1 mg Meropenem 500 mg/ Sodium (Chloride) 100 mls @ 100 mls/hr IV Q24HR [facility] Stop: 10/05/17 00:00 Last Admin: 08/07/17 00:03 Dose: 100 mls/hr Linezolid (Zyvox) 600 mg in 300 mls @ 300 mls/hr IV Q12H [facility] Stop: 10/06/17 02:59 Last Admin: 08/07/17 04:00 Dose: 300 mls/hr Insulin Aspart (Novolog Insulin Sliding Scale) 0 units SUBQ ACHS SUSAN PRN Reason: Protocol Stop: 10/04/17 07:29 Last Admin: 08/07/17 07:54 Dose: 4 units Lactobacillus Rhamnosus (Culturelle 15b) 1 each PO DAILY [facility] Stop: 10/03/17 08:59 Last Admin: 08/06/17 09:42 Dose: 1 each Levothyroxine Sodium (Synthroid) 0.15 mg GT QDAC [facility] Stop: 10/02/17 14:20 Last Admin: 08/07/17 06:51 Dose: 0.15 mg Miscellaneous (Probiotic Screen) 1 ea PRN PRN PRN Reason: PROTOCOL Stop: 10/02/17 10:59 Miscellaneous (Clinical Monitoring) 1 ea PRN PRN PRN Reason: RENAL Stop: 10/03/17 13:37 Ondansetron HCl (Zofran) 4 mg IV Q6H PRN PRN Reason: Nausea / Vomiting Stop: 10/01/17 17:55 Activity: As Tolerated Discharge Diet: 2 Gram Sodium Consults and Follow-Up: Kavon Valenzuela [Primary Care Provider] - Consulting Speciality: Cardiac, Renal, Surgery
[2017-08-07] MEDS: Lactobacillus Rhamnosus GG 15 Billion CFU CAP.SPRINK PO SCH (09:27)
--- NOTE | 2017-08-07 12:34 | General Progress Note ---
Subjective - Review of Systems Service Date: 08/07/17 Subjective: awake, comfortable Objective - Results Result Diagrams: 08/07/17 06:50 08/07/17 06:50 Recent Labs: Laboratory Last Values WBC 8.0 Th/cmm (4.8-10.8) 08/07/17 06:50 RBC 2.77 Mil/cmm (3.80-5.80) L 08/07/17 06:50 Hgb 8.8 gm/dL (12-16) L 08/07/17 06:50 Hct 26.6 % (41.0-60) L 08/07/17 06:50 MCV 96.2 fl (80-99) 08/07/17 06:50 MCH 31.7 pg (27.0-31.0) H 08/07/17 06:50 MCHC Differential 32.9 pg (28.0-36.0) 08/07/17 06:50 RDW 15.5 % (11.5-20.0) 08/07/17 06:50 Plt Count 201 Th/cmm (150-400) D 08/07/17 06:50 MPV 7.1 fl 08/07/17 06:50 Neutrophils % 72.7 % (40.0-80.0) 08/07/17 06:50 Lymphocytes % 15.4 % (20.0-50.0) L 08/07/17 06:50 Monocytes % 6.2 % (2.0-10.0) 08/07/17 06:50 Eosinophils % 5.2 % (0.0-5.0) H 08/07/17 06:50 Basophils % 0.5 % (0.0-2.0) 08/07/17 06:50 PT 12.2 SECONDS (9.5-11.5) H 08/03/17 06:36 INR 1.16 (0.5-1.4) 08/03/17 06:36 PTT (Actin FS) 36.8 SECONDS (26.0-38.0) 08/03/17 06:36 Sodium 135 mEq/L (136-145) L 08/07/17 06:50 Potassium 4.1 mEq/L (3.5-5.1) 08/07/17 06:50 Chloride 97 mEq/L (98-107) L 08/07/17 06:50 Carbon Dioxide 27.2 mEq/L (21.0-31.0) 08/07/17 06:50 Anion Gap 14.9 (7.0-16.0) 08/07/17 06:50 BUN 36 mg/dL (7-25) H 08/07/17 06:50 Creatinine 6.8 mg/dL (0.7-1.3) H* 08/07/17 06:50 Est GFR ( Amer) TNP 08/07/17 06:50 Est GFR (Non-Af Amer) TNP 08/07/17 06:50 BUN/Creatinine Ratio 5.3 08/07/17 06:50 Glucose 228 mg/dL (70-105) H 08/07/17 06:50 POC Glucose 205 MG/DL (70-105) H 08/07/17 08:44 Hemoglobin A1c % 7.6 % (4.0-6.0) H 08/02/17 17:50 Calcium 9.2 mg/dL (8.6-10.3) 08/07/17 06:50 Total Bilirubin 0.5 mg/dL (0.3-1.0) 08/07/17 06:50 AST 13 U/L (13-39) 08/07/17 06:50 ALT 9 U/L (7-52) 08/07/17 06:50 Alkaline Phosphatase 53 U/L (34-104) 08/07/17 06:50 B-Natriuretic Peptide 1840.0 pg/mL (5.0-100.0) H 08/04/17 05:20 Total Protein 5.6 gm/dL (6.0-8.3) L 08/07/17 06:50 Albumin 3.2 gm/dL (4.2-5.5) L 08/07/17 06:50 Globulin 2.4 gm/dL 08/07/17 06:50 Albumin/Globulin Ratio 1.3 (1.0-1.8) 08/07/17 06:50 TSH 0.11 uIU/ml (0.34-5.60) L 08/03/17 06:36 - Physical Exam Vitals and I&O: Vital Signs Temp 98.4 F 08/07/17 11:48 Pulse 82 02/12/18 12:18 Resp 16 08/07/17 12:18 BP 134/42 08/07/17 11:48 Pulse Ox 96 08/07/17 12:18 Intake & Output 08/06/17 08/07/17 08/07/17 18:59 06:59 18:59 Intake Total 200 200 Balance 200 200 Weight (lbs) 66.678 kg 67.132 kg Intake: Oral 200 200 Active Medications: Current Medications Acetaminophen (Tylenol) 650 mg PO Q6H PRN PRN Reason: Pain or Fever >101 Stop: 10/01/17 17:56 Albuterol Sulfate (Albuterol 2.5mg/3ml Neb Ud) 2.5 mg HHN Q6HRT [facility] Stop: 10/01/17 18:59 Last Admin: 08/07/17 12:16 Dose: 2.5 mg Chlorpromazine (Thorazine) 25 mg PO Q8HR PRN; Protocol PRN Reason: Hiccups Stop: 10/01/17 17:59 Famotidine (Pepcid) 20 mg GT DAILY [facility] Stop: 10/02/17 08:59 Last Admin: 08/07/17 09:27 Dose: Not Given Hydromorphone HCl (Dilaudid) 1 mg IVP Q4HR PRN PRN Reason: Pain (Severe) Stop: 10/01/17 17:52 Last Admin: 08/07/17 00:02 Dose: 1 mg Meropenem 500 mg/ Sodium (Chloride) 100 mls @ 100 mls/hr IV Q24HR [facility] Stop: 10/05/17 00:00 Last Admin: 08/07/17 00:03 Dose: 100 mls/hr Linezolid (Zyvox) 600 mg in 300 mls @ 300 mls/hr IV Q12HR@0900,2100 [facility] Stop: 10/06/17 09:29 Last Admin: 08/07/17 09:43 Dose: 300 mls/hr Insulin Aspart (Novolog Insulin Sliding Scale) 0 units SUBQ ACHS SUSAN PRN Reason: Protocol Stop: 10/04/17 07:29 Last Admin: 08/07/17 07:54 Dose: 4 units Lactobacillus Rhamnosus (Culturelle 15b) 1 each PO DAILY [facility] Stop: 10/03/17 08:59 Last Admin: 08/07/17 09:27 Dose: Not Given Levothyroxine Sodium (Synthroid) 0.15 mg GT QDAC SUSAN Stop: 10/02/17 14:20 Last Admin: 08/07/17 06:51 Dose: 0.15 mg Miscellaneous (Probiotic Screen) 1 ea PRN PRN PRN Reason: PROTOCOL Stop: 10/02/17 10:59 Miscellaneous (Clinical Monitoring) 1 ea PRN PRN PRN Reason: RENAL Stop: 10/03/17 13:37 Ondansetron HCl (Zofran) 4 mg IV Q6H PRN PRN Reason: Nausea / Vomiting Stop: 10/01/17 17:55 General: Alert, Oriented x3, Cooperative, No acute distress HEENT: Atraumatic, Mucous membr. moist/pink Neck: Supple, +2 carotid pulse wo bruit Cardiovascular: Regular rate, Normal S1, Normal S2 (decrease BS) Lungs: Other (few rhonchi) Abdomen: Bowel sounds, Soft Extremities: Other (BK Amputation of left leg, right foot with gauze) Neurological: Sensation intact Skin: no Rash Psych/Mental Status: Mood NL - Procedures Procedures: Procedures Procedure Code Date AMPUTATION OF LOWER LEG 66964 03/20/17 AMPUTATION OF TOE 44582 08/02/17 CATARAC PHACOEMULS/ASPIR 13.41 02/11/10 CATARACT SURG W/IOL 1 STAGE 20986 02/11/10 CHANGE FEEDING DEVICE IN UP INTEST TRACT, SENIOR CARE ASSISTANT APPROACH [id number] 03/20/17 CHANGE GASTROSTOMY TUBE 25100 03/20/17 DETACHMENT AT LEFT LOWER LEG, HIGH, OPEN APPROACH [id number] 03/20/17 DETACHMENT AT RIGHT 1ST TOE, COMPLETE, OPEN APPROACH [id number] 03/20/17 DETACHMENT AT RIGHT 2ND TOE, MID, OPEN APPROACH [id number] 08/02/17 INSERT LENS AT CATAR EXT 13.71 02/11/10 PERFORMANCE OF URINARY FILTRATION, MULTIPLE [id number] 03/20/17 Assessment/Plan - Assessment Assessment: ESRD on HD PAD S/P Amputation right 2nd digit, S/P BKA Ess Htn Type 2 DM Morbid Obesity CAD Hypothyroid - Plan Plan: Lab - Result Diagrams 08/04/17 05:20 08/04/17 05:20 Current Medications Acetaminophen (Tylenol) 650 mg PO Q6H PRN PRN Reason: Pain or Fever >101 Stop: 10/01/17 17:56 Albuterol Sulfate (Albuterol 2.5mg/3ml Neb Ud) 2.5 mg HHN Q6HRT SUSAN Stop: 10/01/17 18:59 Last Admin: 08/04/17 12:48 Dose: 2.5 mg Chlorpromazine (Thorazine) 25 mg PO Q8HR PRN; Protocol PRN Reason: Hiccups Stop: 10/01/17 17:59 Famotidine (Pepcid) 20 mg GT DAILY SUSAN Stop: 10/02/17 08:59 Last Admin: 08/04/17 09:02 Dose: 20 mg Hydromorphone HCl (Dilaudid) 1 mg IVP Q4HR PRN PRN Reason: Pain (Severe) Stop: 10/01/17 17:52 Last Admin: 08/04/17 00:15 Dose: 1 mg Ceftriaxone Sodium 1 gm/ (Sodium Chloride) 50 mls @ 100 mls/hr IV Q24HR SUSAN Stop: 10/01/17 17:59 Last Infusion: 08/03/17 17:41 Dose: Infused Insulin Aspart (Novolog Insulin Sliding Scale) 0 units SUBQ Q6HR SUSAN PRN Reason: Protocol Stop: 10/01/17 17:59 Last Admin: 08/04/17 12:08 Dose: 2 units Lactobacillus Rhamnosus (Culturelle 15b) 1 each PO DAILY SUSAN Stop: 10/02/17 08:59 Last Admin: 08/04/17 09:02 Dose: 1 each Lactobacillus Rhamnosus (Culturelle 15b) 1 each PO DAILY SUSAN Stop: 10/03/17 08:59 Last Admin: 08/04/17 09:03 Dose: Not Given Levothyroxine Sodium (Synthroid) 0.15 mg GT QDAC SUSAN Stop: 10/02/17 14:20 Last Admin: 08/04/17 09:02 Dose: 0.15 mg Miscellaneous (Probiotic Screen) 1 ea MC PRN PRN PRN Reason: PROTOCOL Stop: 10/02/17 10:59 Miscellaneous (Clinical Monitoring) 1 ea MC PRN PRN PRN Reason: RENAL Stop: 10/03/17 13:37 Ondansetron HCl (Zofran) 4 mg IV Q6H PRN PRN Reason: Nausea / Vomiting Stop: 10/01/17 17:55 Lab - Result Diagrams 08/07/17 06:50 08/07/17 06:50 scheduled again for HD today then DC home discussed w/ daughter @ bedside Nutritional Asmnt/Malnutr-PDOC - Dietary Evaluation Malnutrition Findings (Please click <Entered> for more info): Nutritional Asmnt/Malnutrition Start: 08/03/17 17: 46 Text: Status: Complete Freq: Document 08/03/17 17:46 TYLOR (Rec: 08/03/17 17:58 LCCARON [email or web address]) Nutritional Asmnt/Malnutrition Patient General Information Nutritional Screening High Risk Consult Diagnosis gangrene right foot Pertinent Medical Hx/Surgical Hx PVD, s/p BKA left, right big toe, CAD, CHF, HTN, Chronic renal failure, ESRD on HD, weakness Subjective Information Consult received for elevated BS. Pt having surgery for secomd toe amputation at time of visit, not able to visit pt . Current Diet Order/ Nutrition Support NPO Pertinent Medications novolog, culturelle, synthroid Pertinent Labs 08/03 Na 143, K 3.4, Cl 104, BUN 33, Cr 4.0, Glucose 117, POC 123-198, 08/02 A1c 7.6 Nutritional Hx/Data Height 1.63 m Height (Calculated Centimeters) 162.6 Current Weight (lbs) 67.132 kg Weight (Calculated Kilograms) 67.1 Weight (Calculated Grams) 08851.7 [place] Body Weight 120 % [place] Body Weight 123 Body Mass Index (BMI) 25.4 Weight Status Overweight GI Symptoms GI Symptoms None Last BM 0 Difficult in: None Skin Integrity/Comment: SCARS IN MULTIPLE BODY PARTS ulceration to right second toe Estimated Nutritional Goals BEE in Kcals: Using Current wt Calories/Kcals/Kg 25-30 Kcals Calculated 4643-3449 Protein: Using Current wt Protein g/k-1.2 Protein Calculated 61-73 Fluid: ml 1675-1830ml (1ml/kcal) Nutritional Problem 2. Problem Problem increased nutrition needs ( calorie and protein) Etiology increased metabolic demand for wound healing Signs/Symptoms: ulceration and s/p amputation 1. Problem Problem altered nutrition realted lab values Etiology hx of DM Signs/Symptoms: Glucose 117, POC 123-198, A1c 7.6 Malnutrition Alert Protein-Calorie Malnutrition N/A Is there a minimum of two criteria No selected? Query Text:Check all the applicable criteria. A minimum of two criteria are recommended for diagnosis of either severe or non-severe malnutrition. Intervention/Recommendation Comments 1. Advance diet as tolerated. Recommend CCHO-60gm diet. 2. Monitor PO intake, wt, labs and skin integrity 3. F/U as moderate risk in 3-5 days, PO check 08/04 Expected Outcomes/Goals Expected Outcomes/Goals 1. PO intake to meet at least 75% of nutritional needs. 2. Wt stability, skin to remain intact, labs to approach WNL.
--- NOTE | 2017-08-07 14:02 | General Progress Note ---
Subjective - Review of Systems Service Date: 08/07/17 Events since last encounter: C and S noted for DC with local wound care Objective - Results Result Diagrams: 08/07/17 06:50 08/07/17 06:50 Recent Labs: Laboratory Last Values WBC 8.0 Th/cmm (4.8-10.8) 08/07/17 06:50 RBC 2.77 Mil/cmm (3.80-5.80) L 08/07/17 06:50 Hgb 8.8 gm/dL (12-16) L 08/07/17 06:50 Hct 26.6 % (41.0-60) L 08/07/17 06:50 MCV 96.2 fl (80-99) 08/07/17 06:50 MCH 31.7 pg (27.0-31.0) H 08/07/17 06:50 MCHC Differential 32.9 pg (28.0-36.0) 08/07/17 06:50 RDW 15.5 % (11.5-20.0) 08/07/17 06:50 Plt Count 201 Th/cmm (150-400) D 08/07/17 06:50 MPV 7.1 fl 08/07/17 06:50 Neutrophils % 72.7 % (40.0-80.0) 08/07/17 06:50 Lymphocytes % 15.4 % (20.0-50.0) L 08/07/17 06:50 Monocytes % 6.2 % (2.0-10.0) 08/07/17 06:50 Eosinophils % 5.2 % (0.0-5.0) H 08/07/17 06:50 Basophils % 0.5 % (0.0-2.0) 08/07/17 06:50 PT 12.2 SECONDS (9.5-11.5) H 08/03/17 06:36 INR 1.16 (0.5-1.4) 08/03/17 06:36 PTT (Actin FS) 36.8 SECONDS (26.0-38.0) 08/03/17 06:36 Sodium 135 mEq/L (136-145) L 08/07/17 06:50 Potassium 4.1 mEq/L (3.5-5.1) 08/07/17 06:50 Chloride 97 mEq/L (98-107) L 08/07/17 06:50 Carbon Dioxide 27.2 mEq/L (21.0-31.0) 08/07/17 06:50 Anion Gap 14.9 (7.0-16.0) 08/07/17 06:50 BUN 36 mg/dL (7-25) H 08/07/17 06:50 Creatinine 6.8 mg/dL (0.7-1.3) H* 08/07/17 06:50 Est GFR ( Amer) TNP 08/07/17 06:50 Est GFR (Non-Af Amer) TNP 08/07/17 06:50 BUN/Creatinine Ratio 5.3 08/07/17 06:50 Glucose 228 mg/dL (70-105) H 08/07/17 06:50 POC Glucose 189 MG/DL (70 - 105) H 08/07/17 12:30 Hemoglobin A1c % 7.6 % (4.0-6.0) H 08/02/17 17:50 Calcium 9.2 mg/dL (8.6-10.3) 08/07/17 06:50 Total Bilirubin 0.5 mg/dL (0.3-1.0) 08/07/17 06:50 AST 13 U/L (13-39) 08/07/17 06:50 ALT 9 U/L (7-52) 08/07/17 06:50 Alkaline Phosphatase 53 U/L (34-104) 08/07/17 06:50 B-Natriuretic Peptide 1840.0 pg/mL (5.0-100.0) H 08/04/17 05:20 Total Protein 5.6 gm/dL (6.0-8.3) L 08/07/17 06:50 Albumin 3.2 gm/dL (4.2-5.5) L 08/07/17 06:50 Globulin 2.4 gm/dL 08/07/17 06:50 Albumin/Globulin Ratio 1.3 (1.0-1.8) 08/07/17 06:50 TSH 0.11 uIU/ml (0.34-5.60) L 08/03/17 06:36 - Physical Exam Vitals and I&O: Vital Signs Temp 98.4 F 02/12/18 11:48 Pulse 82 08/07/17 12:18 Resp 16 08/07/17 12:18 BP 134/42 08/07/17 11:48 Pulse Ox 96 08/07/17 12:18 Intake & Output 08/06/1718 08/07/17 18:59 06:59 18:59 Intake Total 200 200 Balance 200 200 Weight (lbs) 66.678 kg 67.132 kg Intake: Oral 200 200 Active Medications: Current Medications Acetaminophen (Tylenol) 650 mg PO Q6H PRN PRN Reason: Pain or Fever >101 Stop: 10/01/17 17:56 Albuterol Sulfate (Albuterol 2.5mg/3ml Neb Ud) 2.5 mg HHN Q6HRT [facility] Stop: 10/01/17 18:59 Last Admin: 08/07/17 12:16 Dose: 2.5 mg Chlorpromazine (Thorazine) 25 mg PO Q8HR PRN; Protocol PRN Reason: Hiccups Stop: 10/01/17 17:59 Famotidine (Pepcid) 20 mg GT DAILY [facility] Stop: 10/02/17 08:59 Last Admin: 08/07/17 09:27 Dose: Not Given Hydromorphone HCl (Dilaudid) 1 mg IVP Q4HR PRN PRN Reason: Pain (Severe) Stop: 10/01/17 17:52 Last Admin: 08/07/17 00:02 Dose: 1 mg Meropenem 500 mg/ Sodium (Chloride) 100 mls @ 100 mls/hr IV Q24HR [facility] Stop: 10/05/17 00:00 Last Admin: 08/07/17 00:03 Dose: 100 mls/hr Linezolid (Zyvox) 600 mg in 300 mls @ 300 mls/hr IV Q12HR@0900,2100 [facility] Stop: 10/06/17 09:29 Last Admin: 08/07/17 09:43 Dose: 300 mls/hr Insulin Aspart (Novolog Insulin Sliding Scale) 0 units SUBQ ACHS SUSAN PRN Reason: Protocol Stop: 10/04/17 07:29 Last Admin: 08/07/17 12:52 Dose: Not Given Lactobacillus Rhamnosus (Culturelle 15b) 1 each PO DAILY [facility] Stop: 10/03/17 08:59 Last Admin: 08/07/17 09:27 Dose: Not Given Levothyroxine Sodium (Synthroid) 0.15 mg GT QDAC SUSAN Stop: 10/02/17 14:20 Last Admin: 08/07/17 06:51 Dose: 0.15 mg Miscellaneous (Probiotic Screen) 1 ea MC PRN PRN PRN Reason: PROTOCOL Stop: 10/02/17 10:59 Miscellaneous (Clinical Monitoring) 1 ea PRN PRN PRN Reason: RENAL Stop: 10/03/17 13:37 Ondansetron HCl (Zofran) 4 mg IV Q6H PRN PRN Reason: Nausea / Vomiting Stop: 10/01/17 17:55 General: Alert, Oriented x3, Cooperative, No acute distress HEENT: Atraumatic, Mucous membr. moist/pink Neck: Supple, +2 carotid pulse wo bruit Cardiovascular: Regular rate, Normal S1, Normal S2 (decrease BS) Lungs: Other (few rhonchi) Abdomen: Bowel sounds, Soft Extremities: Other (BK Amputation of left leg, right foot with gauze) Neurological: Sensation intact Skin: no Rash Psych/Mental Status: Mood NL - Procedures Procedures: Procedures Procedure Code Date AMPUTATION OF LOWER LEG 72846 03/20/17 AMPUTATION OF TOE 42069 08/02/17 CATARAC PHACOEMULS/ASPIR 13.41 02/11/10 CATARACT SURG W/IOL 1 STAGE 11986 02/11/10 CHANGE FEEDING DEVICE IN UP INTEST TRACT, LUNCHEONETTE MANAGER APPROACH [id number] 03/20/17 CHANGE GASTROSTOMY TUBE 23313 03/20/17 DETACHMENT AT LEFT LOWER LEG, HIGH, OPEN APPROACH [id number] 03/20/17 DETACHMENT AT RIGHT 1ST TOE, COMPLETE, OPEN APPROACH 6P9I4S0 03/20/17 DETACHMENT AT RIGHT 2ND TOE, MID, OPEN APPROACH [id number] 08/02/17 INSERT LENS AT CATAR EXT 13.71 02/11/10 PERFORMANCE OF URINARY FILTRATION, MULTIPLE [id number] 03/20/17 Nutritional Asmnt/Malnutr-PDOC - Dietary Evaluation Malnutrition Findings (Please click <Entered> for more info): Nutritional Asmnt/Malnutrition Start: 08/03/17 17: 46 Text: Status: Complete Freq: Document 08/03/17 17:46 TYLOR (Rec: 08/03/17 17:58 LCCARON [email or web address]) Nutritional Asmnt/Malnutrition Patient General Information Nutritional Screening High Risk Consult Diagnosis gangrene right foot Pertinent Medical Hx/Surgical Hx PVD, s/p BKA left, right big toe, CAD, CHF, HTN, Chronic renal failure, ESRD on HD, weakness Subjective Information Consult received for elevated BS. Pt having surgery for secomd toe amputation at time of visit, not able to visit pt . Current Diet Order/ Nutrition Support NPO Pertinent Medications novolog, culturelle, synthroid Pertinent Labs 08/03 Na 143, K 3.4, Cl 104, BUN 33, Cr 4.0, Glucose 117, POC 123-198, 08/02 A1c 7.6 Nutritional Hx/Data Height 1.63 m Height (Calculated Centimeters) 162.6 Current Weight (lbs) 67.132 kg Weight (Calculated Kilograms) 67.1 Weight (Calculated Grams) 35637.7 [place] Body Weight 120 % [place] Body Weight 123 Body Mass Index (BMI) 25.4 Weight Status Overweight GI Symptoms GI Symptoms None Last BM 0 Difficult in: None Skin Integrity/Comment: SCARS IN MULTIPLE BODY PARTS ulceration to right second toe Estimated Nutritional Goals BEE in Kcals: Using Current wt Calories/Kcals/Kg 25-30 Kcals Calculated 8274-0769 Protein: Using Current wt Protein g/k-1.2 Protein Calculated 61-73 Fluid: ml 1675-1830ml (1ml/kcal) Nutritional Problem 2. Problem Problem increased nutrition needs ( calorie and protein) Etiology increased metabolic demand for wound healing Signs/Symptoms: ulceration and s/p amputation 1. Problem Problem altered nutrition realted lab values Etiology hx of DM Signs/Symptoms: Glucose 117, POC 123-198, A1c 7.6 Malnutrition Alert Protein-Calorie Malnutrition N/A Is there a minimum of two criteria No selected? Query Text:Check all the applicable criteria. A minimum of two criteria are recommended for diagnosis of either severe or non-severe malnutrition. Intervention/Recommendation Comments 1. Advance diet as tolerated. Recommend CCHO-60gm diet. 2. Monitor PO intake, wt, labs and skin integrity 3. F/U as moderate risk in 3-5 days, PO check 08/04 Expected Outcomes/Goals Expected Outcomes/Goals 1. PO intake to meet at least 75% of nutritional needs. 2. Wt stability, skin to remain intact, labs to approach WNL.
--- NOTE | 2017-08-07 14:13 | Pathology Report ---
[id number] Collection Date: 08/03/2017 Surgeon: Dr. Fidelina Sanchez Specimen Description: Right second toe amputation Gross Description: Received in formalin is a 5.2 x 1.9 x 1.7 cm amputation of the right second toe with extensive degenerative changes and necrosis seen throughout the specimen. The skin shows brownish-black discoloration and sectioning shows areas of softening and degeneration. Computer Engineering Technologist sections are submitted in one cassette. Microscopic Description: The histologic sections show skin and soft tissue with extensive suppurative inflammation consisting of large collections of neutrophils within a degenerated and necrotic background. Diagnosis: Soft tissue degeneration and necrosis consistent with gangrene (right second toe amputation). [facility]# [id number] [facility]
== END 2017-08-07 14:45 | disposition home or self-care (01) | DRG 255 ==
LOC: MSI 16:55
PROVIDERS: ADMIT General Practice; ATTEND General Practice
PROC: 0Y6R0Z0 Detachment at Right 2nd Toe, Complete, Open Approach (ICD-10-PCS; principal; 2017-08-03)
PROC: 5A1D70Z Performance of Urinary Filtration, Intermittent, Less than 6 Hours Per Day (ICD-10-PCS; 2017-08-04)
PROC: 5A1D70Z Performance of Urinary Filtration, Intermittent, Less than 6 Hours Per Day (ICD-10-PCS; 2017-08-05)
PROC: 5A1D70Z Performance of Urinary Filtration, Intermittent, Less than 6 Hours Per Day (ICD-10-PCS; 2017-08-07)
DX: E11.52 Type 2 diabetes mellitus with diabetic peripheral angiopathy with gangrene (principal); N18.6 End stage renal disease; I13.2 Hypertensive heart and chronic kidney disease with heart failure and with stage 5 chronic kidney disease, or end stage renal disease; I96 Gangrene, not elsewhere classified; E11.22 Type 2 diabetes mellitus with diabetic chronic kidney disease; I50.9 Heart failure, unspecified; E66.01 Morbid (severe) obesity due to excess calories; R13.10 Dysphagia, unspecified; T82.41XA Breakdown (mechanical) of vascular dialysis catheter, initial encounter; L02.611 Cutaneous abscess of right foot; B96.4 Proteus (mirabilis) (morganii) as the cause of diseases classified elsewhere; M10.9 Gout, unspecified; I25.10 Atherosclerotic heart disease of native coronary artery without angina pectoris; E03.9 Hypothyroidism, unspecified; L03.031 Cellulitis of right toe; Z16.12 Extended spectrum beta lactamase (ESBL) resistance; Y83.8 Other surgical procedures as the cause of abnormal reaction of the patient, or of later complication, without mention of misadventure at the time of the procedure; Y92.89 Other specified places as the place of occurrence of the external cause; Z95.1 Presence of aortocoronary bypass graft; Z99.2 Dependence on renal dialysis; Z89.512 Acquired absence of left leg below knee; Z89.411 Acquired absence of right great toe; Z83.3 Family history of diabetes mellitus; Z82.49 Family history of ischemic heart disease and other diseases of the circulatory system; Z79.82 Long term (current) use of aspirin; Z79.4 Long term (current) use of insulin; Z68.25 Body mass index [BMI] 25.0-25.9, adult
CPT/HCPCS: 36415-UA; 71045-TC; 80053-TC; 82948-90; 83036-90; 83880-TC; 84443-TC; 85025-TC; 85610-TC; 87070-90; 87075-90; 87205-90; 88304-TC; 90779; 90937; 93005; 94640; 94760; J0696; J1170; J1644; J1815; J1940; J2001; J2020; J2185; J2250; J2997; J3480; J7030; J7040; J7613; P9046; Z7610

== ENCOUNTER 2018-09-17 09:03 | Emergency (ER) | payer MEDICARE, MEDICAID ==
[2018-09-17 09:54] LABS: % BASOPHILS 0.7 % (0.0-2.0); % EOSINOPHILS 7.8 % (0.0-5.0); % LYMPHOCYTES 22.5 % (20.0-50.0); % MONOCYTES 6.4 % (2.0-10.0); % NEUTROPHILS 62.6 % (40.0-80.0); BASOPHILE ABSOLUTE 0.1 Th/cumm (0-0.2); EOSINOPHILE ABSOLUTE 0.8 Th/cmm (0.1-0.4); HEMATOCRIT 24.8 % (41.0-60); LYMPHOCYTE ABSOLUTE 2.2 Th/cmm (1.5-3.0); MEAN CELL VOLUME 101.3 fl (80-99); MEAN CORPUSCULAR HEMOGLOBIN 32.8 pg (27.0-31.0); MEAN CORPUSCULAR HGB CONC 32.3 pg (28.0-36.0); MEAN PLATELET VOLUME 6.1 fl; MONOCYTE ABSOLUTE 0.6 Th/cmm (0.3-1.0); NEUTROPHILE ABSOLUTE 6.1 Th/cmm (1.8-8.0); PLATELET COUNT 454 Th/cmm (150-400); RED BLOOD COUNT 2.45 Mil/cmm (3.80-5.80); RED CELL DISTRIBUTION WIDTH 15.2 % (11.5-20.0); WHITE BLOOD COUNT 9.8 Th/cmm (4.8-10.8)
[2018-09-17 10:28] LABS: ALB/GLOB RATIO 1.5 (1.0-1.8); ALBUMIN 3.2 gm/dL (4.2-5.5); ALKALINE PHOSPHATASE 54 U/L (34-104); ANION GAP 18.6 (7.0-16.0); BILIRUBIN,TOTAL 0.3 mg/dL (0.3-1.0); CALCIUM SERUM 9.9 mg/dL (8.6-10.3); CARBON DIOXIDE 24.5 mEq/L (21.0-31.0); CHLORIDE 100 mEq/L (98-107); GLUCOSE 202 mg/dL (70-105); POTASSIUM SERUM 5.1 mEq/L (3.5-5.1); SGOT 11 U/L (13-39); SGPT/ALT 10 U/L (7-52); SODIUM SERUM 138 mEq/L (136-145); TOTAL PROTEIN,SERUM 5.4 gm/dL (6.0-8.3)
--- NOTE | 2018-09-17 10:29 | ED Physician Chart ---
ED Chief Complaint/HPI - Patient Information Date Seen:: 09/17/18 Time Seen:: 10:00 Chief Complaint:: renal failure with symptomatic anemia Allergies:: Allergies Allergy/AdvReac Type Severity Reaction Status Date / Time No Known Allergies Allergy Verified 03/20/17 19:04 Vitals:: Vital Signs - 8 hr 09/17/18 09:24 Temp 97.6 F HR 86 RR 14 BP 184/73 O2 Sat % 96 Review:: Nurse's Note Reviewed ED Review of Systems - Review of Systems General/Constitutional: No fever Skin: No skin lesions Head: No headache Eyes: No loss of vision ENT: No sore throat Neck: No neck pain Cardio Vascular: No chest pain Pulmonary: No SOB GI: No nausea, No vomiting Endocrine: No polyuria Psychiatric: No prior psych history Hematopoietic: No bruising Allergic/Immuno: No urticaria Neurological: No syncope ED Past Medical History - Past Medical History Past Medical History: DM, CHF, ESRD, Thyroid disorder Family Medical History - Family Member Mother History Unknown: Yes Ethnicity: Living Status: Hx Family Cancer: No Hx Family Coronary Artery Disease: Yes Hx Family Congestive Heart Failure: No Hx Family Hypertension: Yes Hx Family Stroke: No Hx Family Diabetes: Yes Hx Family Seizures: No Hx Family Dementia: No Hx Family AIDS: No Hx Family HIV: No Hx Family COPD: No Hx Family Hepatitis: No Hx Family Psychiatric Problems: No Hx Family Tuberculosis: No ED Physical Exam - Physical Examination General/Constitutional: Alert, No distress, Non-toxic appearing Head: Atraumatic Eyes: Lids, conjuctiva normal Skin: Nl inspection ENMT: External ears, nose nl Neck: Nontender Respiratory: Nl effort/Exclusion, Clear to Auscultation Cardio Vascular: RRR GI: No tenderness/rebounding/guarding Neuro/Psych: Alert/oriented (right bka) ED Labs/Radiology/EKG Results - Lab Results Results: Laboratory Tests 09/17/18 09:20 WBC 9.8 RBC 2.45 L Hgb 8.0 L Hct 24.8 L MCV 101.3 H MCH 32.8 H MCHC Differential 32.3 RDW 15.2 Plt Count 454 H MPV 6.1 Neutrophils % 62.6 Lymphocytes % 22.5 Monocytes % 6.4 Eosinophils % 7.8 H Basophils % 0.7 ED Assessment - Assessment General Assessment: renal failure anemia ED Septic Shock - . Is Septic Shock (SBP<90, OR Lactate>4 mmol\L) present?: No - <6hrs of presentation: Vital Signs: Vital Signs - 8 hr 09/17/18 09:24 Temp 97.6 F HR 86 RR 14 BP 184/73 O2 Sat % 96 ED Reassessment (Disposition) - Reassessment Reassessment Condition:: Unchanged - Patient Disposition Discharge/Transfer:: Acute Care w/in this hosp
[2018-09-17 10:37] LABS: BUN - UREA NITROGEN 92 mg/dL (7-25); CREATININE - SERUM 7.6 mg/dL (0.7-1.3)
--- NOTE | 2018-09-17 10:51 | Diagnostic Imaging Report ---
CHEST X-RAY: AP view INDICATION: CHF, CABG COMPARISON: Chest x-ray 08/06/2017 FINDINGS: Right dialysis catheter is stable. Small left effusion is noted. Mild cardiomegaly is noted. There is dense of prior median sternotomy. Atherosclerosis is noted. Degenerative changes of the spine are noted. IMPRESSION: Small left effusion. Pneumonia of the lung bases cannot be excluded. No evidence of graciela CHF. Mild cardiomegaly with atherosclerosis. Evidence of prior median sternotomy Right-sided dialysis catheter noted.
== END 2018-09-17 12:00 | disposition home or self-care (01) ==
LOC: ER 09:03
DX: N18.6 End stage renal disease (principal); D64.9 Anemia, unspecified; I50.9 Heart failure, unspecified; E11.9 Type 2 diabetes mellitus without complications; E03.9 Hypothyroidism, unspecified; I10 Essential (primary) hypertension
CPT/HCPCS: 36415-UA; 71045-TC; 80053-TC; 83036-90; 85025-TC; 93005; Z7502